=== PATIENT | female | born 1965 | race African-American/Black ===

== ENCOUNTER 2017-07-19 05:50 | Inpatient (IN) | payer MEDICARE, OTHER ==
[~2017-07-19] VITALS: Ht 165.1 cm; Wt 90.7 kg
[~2017-07-19 05:50] MED LIST: ALBUTEROL25 GM MC; GABAPENTIN100 MG PO; PROVENTIL2 MG PO; trazadone
[2017-07-19 08:00] VITALS: BP 146/102
[2017-07-19] MEDS ORDERED: Albuterol/Ipratropium 3ml neb HHN PRN (10:30)
[2017-07-19] MEDS: Norco 5mg/325mg tab ORAL PRN ×3 (11:33→23:44)
--- NOTE | 2017-07-19 11:59 | History & Physical ---
History and Physical History & Physicial Dictated for Int Med-Dr Munguia no. [id number]. MOLINA MARIE Jul 19, 2017 11:59
[2017-07-19 12:00] VITALS: BP 145/70
[2017-07-19] MEDS: Solu-MEDROL 40mg Inj IVP SCH ×2 (12:00→21:32)
[2017-07-19] MEDS: Heparin 5000 units/ml inj SUBQ SCH ×2 (14:00→21:32)
[2017-07-19] MEDS: Triamterene/Hctz 37.5/25 cap ORAL SCH (14:50)
[2017-07-19] MEDS ORDERED: Albuterol/Ipratropium 3ml neb HHN SCH (15:00)
--- NOTE | 2017-07-19 16:45 | Consultation ---
History of Present Illness General Date patient seen: Jul 19, 2017 Chief Complaint: dysnea Referring physician: Dr. Munguia Reason for Consultation: dyspnea Present Illness HPI 51 year old male with hx of smoking, COPD was taken to [facility] with CC of increased shortness of breath, cough. Pt is transferred to [facility] for further management. Allergies: Coded Allergies: No Known Allergies (Unverified , 07/05/12) Medication History Scheduled Gabapentin* (Gabapentin*), 0 PO TID, (Reported) Miscellaneous Medications Albuterol (Albuterol), MC, (Reported) Albuterol Sulf (Albuterol Sulfate), 2 MG PO, (Reported) [trazadone], (Reported) Patient History Healthcare decision maker Resuscitation status Advanced Directive on File Past Medical/Surgical History Past Medical/Surgical History: (1) Nicotine addiction (2) Depression Review of Systems Respiratory: Reports: cough, shortness of breath All Other Systems: negative except mentioned in HPI Physical Exam Lines, tubes and drains: peripheral, central line HEENT: normocephalic, atraumatic Neck: non-tender, normal alignment Respiratory/Chest: chest wall non-tender, rhonchi - left, rhonchi - right Cardiovascular/Chest: normal peripheral pulses, normal rate Abdomen: non tender, soft Genitourinary/Rectal: normal genital exam Extremities: normal range of motion Last 24 Hour Vital Signs Date Time Temp Pulse Resp B/P (MAP) Pulse Ox O2 Delivery O2 Flow Rate FiO2 07/19/17 12:00 97.9 100 20 145/70 99 Room Air 07/19/17 11:44 95 20 99 Nasal Cannula 2.0 28 07/19/17 11:41 94 18 98 Nasal Cannula 2.0 28 07/19/17 11:41 32 07/19/17 08:00 98.1 106 20 146/102 95 Room Air Height (Feet): 5 Height (Inches): 5.00 Weight (Pounds): 200 Medications Current Medications Medications (Trade) Dose Ordered Sig/Reddy Route PRN Reason Start Time Stop Time Status Last Admin Dose Admin Acetaminophen (Tylenol) 650 mg Q6H PRN ORAL Mild Pain/Temp > 100.5 07/19/17 10:30 08/18/17 10:29 Acetaminophen/ Hydrocodone Bitart ([place] 5/325) 1 tab Q4H PRN ORAL Severe Pain (Pain Scale 7-10) 07/19/17 10:30 07/26/17 10:29 07/19/17 11:33 Albuterol/ Ipratropium (DuoNeb 0.5-3(2.5)mg/3ml) 3 ml Q4H PRN HHN Shortness of Breath 07/19/17 10:30 07/24/17 10:29 Albuterol/ Ipratropium (DuoNeb 0.5-3(2.5)mg/3ml) 3 ml Q4HRT HHN 07/19/17 13:00 07/24/17 12:59 Gabapentin (Neurontin) 800 mg THREE TIMES A DAY ORAL 07/19/17 12:00 08/18/17 11:59 07/19/17 12:46 Heparin Sodium (Porcine) (Heparin 5000 units/ml) 5,000 units EVERY 8 HOURS SUBQ 07/19/17 14:00 08/18/17 13:59 Levofloxacin 100 ml @ 100 mls/hr Q24H IVPB 07/19/17 12:00 07/26/17 11:59 07/19/17 14:50 Methylprednisolone Sodium Succinate (Solu-MEDROL) 80 mg EVERY 8 HOURS IVP 07/19/17 12:00 08/18/17 11:59 07/19/17 12:00 Ondansetron HCl (Zofran) 4 mg Q4H PRN IVP Nausea & Vomiting 07/19/17 10:30 08/18/17 10:29 Triamterene/HCTZ (Dyazide) 1 cap DAILY ORAL 07/19/17 12:00 08/18/17 11:59 07/19/17 14:50 Assessment/Plan Problem List: (1) COPD with acute exacerbation ICD Codes: J44.1 - Chronic obstructive pulmonary disease with (acute) exacerbation SNOMED: 032523340 (2) Purulent bronchitis ICD Codes: J41.1 - Mucopurulent chronic bronchitis SNOMED: 63067131 (3) Depression ICD Codes: F32.9 - Major depressive disorder, single episode, unspecified SNOMED: 11403587 (4) Nicotine addiction ICD Codes: F17.200 - Nicotine dependence, unspecified, uncomplicated SNOMED: 91977742 Assessment/Plan respiratory treatment IV steroids antitussives respiratory treatment titrate fio2 to sat of 92% dvt prophylaxis pt doens't want Nicotine patch ADEOLA DODSON Jul 19, 2017 16:45
[2017-07-19] MEDS: Albuterol/Ipratropium 3ml neb HHN SCH (17:09)
[2017-07-19] MEDS: Levalbuterol Inh UD 1.25mg/0.5ml HHN SCH (19:00)
[2017-07-19 20:00] VITALS: BP 159/93
[2017-07-19] MEDS: Theophylline ER 100mg ORAL SCH (20:19)
[2017-07-19 20:44] VITALS: BP 149/88
--- NOTE | 2017-07-19 21:30 | History and Physical Report ---
DATE OF ADMISSION: 07/19/2017 Chief Complaint: The patient is a 51-year-old, female, presents with chief complaint of shortness of breath, cough, and fever for 3 days. History Of Present Illness: The patient states she went to a birthday green party 3 days previously. The patient states she was exposed to several children who were not feeling well. The patient began to experience fevers and chills 3 days ago. The patient now has a cough, productive of brownish sputum. The patient also has extreme shortness of breath. The patient has fevers up to 100 degrees Fahrenheit. The patient initially presented to [facility] emergency room. The patient is transferred to [facility] for insurance purposes. The patient is admitted with asthma exacerbation. PAST MEDICAL HISTORY: Significant for asthma. PAST SURGICAL HISTORY: Significant for section x2. CURRENT MEDICATIONS: 1. Gabapentin 400 mg 1 tablet p.o. 3 times daily. 2. Risperdal 1 mg 1 tablet p.o. at bedtime. 3. Albuterol and Atrovent nebulizer q.6 h. p.r.n. 4. Advair 250/50 mcg 1 puff p.o. twice daily. 5. Trazodone 50 mg 1 tablet p.o. at bedtime. ALLERGIES: To eggs. Social History: The patient is single and is unemployed. The patient admits to tobacco use of 1 pack per day. The patient admits to alcohol use on weekends. The patient denies other drugs of abuse. Review Of Systems: Constitutional: The patient denies weight loss or weight gain. The patient complains of fevers and chills as above. HEENT: The patient denies ear or throat pain. The patient denies headache. Cardiovascular: The patient denies palpitations or chest pain. Chest: The patient complains of wheezes as above. The patient complains of cough as above. Abdominal: The patient denies nausea, vomiting, diarrhea, or constipation. Genitourinary: The patient denies dysuria or increased frequency of urination. Neuromuscular: The patient denies seizures or generalized weakness. PHYSICAL EXAMINATION: Vital Signs: Temperature 98.1, respirations 20, pulse 106, blood pressure 146/102, and pulse oximetry 95% on room air. General: The patient is well-developed, well-nourished, obese, female, in no apparent distress. HEENT: Eyes, pupils are equal and responsive to light and accommodation. Extraocular movements are intact. NECK: Supple without lymphadenopathy. Chest: Lungs have diffuse wheezes bilaterally throughout all lung crespo, otherwise, without crackles. Abdomen: Soft, nontender, and nondistended. Positive bowel sounds. No evidence of hepatosplenomegaly. Currently, no rebound or guarding noted. EXTREMITIES: Negative for clubbing, cyanosis, or edema. RECTAL: Refused. GENITAL: Refused. Neurologic: Cranial nerves II through XII are grossly intact without focal deficits. Motor strength is 5/5 bilaterally. Deep tendon reflexes are 2+ plantar. Laboratory And Diagnostic Data: Laboratory studies from [place], WBC 7.4, hemoglobin 13.3, hematocrit 37.5, and platelets 275,000. Glucose 101, sodium 133, potassium 3.2, chloride 100, CO2 21, BUN 9, and creatinine 0.2. Chest x-ray is pending. ASSESSMENT: This is a 51-year-old, female, 1. Fever. 2. Cough. 3. Probable asthma exacerbation. 4. Probable bronchitis. TREATMENT: 1. Fever/cough/asthma. A Pulmonary consultation has been obtained with Dr. Rufino Christina. The patient has been started empirically on intravenous Solu-Medrol. The patient has also been started on intravenous Levaquin. Albuterol and Atrovent will be nebulized q.4 h. while awake. 2. Bronchitis. The patient has been started empirically on Levaquin as above. Alpesh Roque M.D. DR: DOMINICK JOB#: [id number] CC:
[2017-07-19] MEDS: Promethazine/Codeine 5ml UD ORAL PRN (23:44)
[2017-07-20] VITALS: BP 155/89
[2017-07-20 04:00] VITALS: BP 150/85
[2017-07-20] MEDS: Heparin 5000 units/ml inj SUBQ SCH (05:46)
[2017-07-20] MEDS: Solu-MEDROL 40mg Inj IVP SCH ×2 (05:46→13:22)
[2017-07-20] MEDS: Levalbuterol Inh UD 1.25mg/0.5ml HHN SCH ×2 (07:00→13:00)
[2017-07-20 07:22] LABS: BASOPHILS % (AUTO) 0.6 % (0.0-2.0); LYMPHOCYTES % (AUTO) 10.8 % (20.0-45.0); MEAN CORPUSCULAR HEMOGLOBIN 32.6 PG (27.0-31.0); MEAN CORPUSCULAR HGB CONC 33.3 G/DL (32.0-36.0); MEAN CORPUSCULAR VOLUME 98 FL (80-99); MEAN PLATELET VOLUME 5.9 FL (6.5-10.1); MONOCYTES % (AUTO) 4.1 % (1.0-10.0); NEUTROPHILS % (AUTO) 84.5 % (45.0-75.0); PLATELET COUNT 318 K/UL (150-450); RED BLOOD COUNT 4.21 M/UL (4.20-5.40); RED CELL DISTRIBUTION WIDTH 13.8 % (11.6-14.8); WHITE BLOOD COUNT 11.9 K/UL (4.8-10.8)
[2017-07-20 07:34] LABS: ANION GAP 14 (5-15); CALCIUM 9.8 mg/dL (8.6-10.2); CARBON DIOXIDE 27 mEQ/L (20-30); CHLORIDE 99 mEQ/L (98-107); CREATININE 0.8 mg/dL (0.5-0.9); GLOMERULAR FILTRATION RATE > 60 mL/min (>60); HEMOLYSIS 1; MAGNESIUM 2.1 mg/dL (1.7-2.5); PHOSPHORUS 3.4 mg/dL (2.5-4.8); POTASSIUM 4.1 mEQ/L (3.4-4.9); SODIUM 140 mEQ/L (135-145)
[2017-07-20] MEDS: Theophylline ER 100mg ORAL SCH (08:59)
[2017-07-20] MEDS: Triamterene/Hctz 37.5/25 cap ORAL SCH (08:59)
--- NOTE | 2017-07-20 11:49 | Diagnostic Imaging Report ---
Indication: Cough Technique: 2 views of the chest Comparison: 07/05/2012 Findings: Lungs and pleural space are clear. Heart size is normal. There is a calcified granuloma again demonstrated in the left upper lobe Impression: Evidence of old granulomatous disease No acute process
[2017-07-20 12:00] VITALS: BP 131/64
[2017-07-20] MEDS: Norco 5mg/325mg tab ORAL PRN (12:41)
[2017-07-20] MEDS: Promethazine/Codeine 5ml UD ORAL PRN (12:41)
--- NOTE | 2017-07-20 15:05 | Pulmonology Progress Note ---
Assessment/Plan Problems: (1) COPD with acute exacerbation (2) Purulent bronchitis (3) Depression (4) Nicotine addiction Assessment/Plan improving continue current regiment check sputum antitussives Subjective ROS Limited/Unobtainable: No Constitutional: Reports: no symptoms HEENT: Repors: no symptoms Respiratory: Reports: no symptoms Allergies: Coded Allergies: EGG (Verified Allergy, Unknown, 07/20/17) COPIED FROM UNCODED SECTION Objective Last 24 Hour Vital Signs Date Time Temp Pulse Resp B/P (MAP) Pulse Ox O2 Delivery O2 Flow Rate FiO2 07/20/17 13:58 Room Air 07/20/17 13:58 Room Air 07/20/17 12:00 97.7 110 18 131/64 97 Venturi Mask 11.0 07/20/17 07:42 90 18 98 Room Air 07/20/17 07:42 90 18 Room Air 07/20/17 04:00 97.5 83 18 150/85 100 Room Air 07/20/17 00:00 97.9 96 21 155/89 97 Room Air 07/19/17 20:44 149/88 07/19/17 20:13 97 20 97 Room Air 07/19/17 20:00 97 20 Room Air 07/19/17 20:00 97.9 91 20 159/93 96 Room Air 07/19/17 17:10 32 07/19/17 17:10 86 16 99 Nasal Cannula 2.0 28 07/19/17 17:10 88 20 99 Nasal Cannula 2.0 28 General Appearance: WD/WN HEENT: normocephalic, atraumatic Respiratory/Chest: chest wall non-tender, lungs clear Cardiovascular: normal peripheral pulses, normal rate Abdomen: soft, non tender, no organomegaly Genitourinary: normal external genitalia Extremities: no cyanosis Skin: no lesions Microbiology Date/Time Source Procedure Growth Status 07/19/17 22:30 Sputum Gram Stain - Final Resulted 07/19/17 22:30 Sputum Sputum Culture Pending Resulted 07/19/17 21:30 Nasopharynx Influenza Types A,B Antigen (VAZQUEZ) - Final Complete Laboratory Tests 07/20/17 05:40: White Blood Count 11.9H, Red Blood Count 4.21, Hemoglobin 13.7, Hematocrit 41.2 , Mean Corpuscular Volume 98, Mean Corpuscular Hemoglobin 32.6H, Mean Corpuscular Hemoglobin Concent 33.3, Red Cell Distribution Width 13.8, Platelet Count 318, Mean Platelet Volume 5.9L, Neutrophils (%) (Auto) 84.5H, Lymphocytes (%) (Auto) 10.8L, Monocytes (%) (Auto) 4.1, Eosinophils (%) (Auto) 0.0, Basophils (%) (Auto) 0.6, Sodium Level 140, Potassium Level 4.1, Chloride Level 99, Carbon Dioxide Level 27, Anion Gap 14, Blood Urea Nitrogen 14, Creatinine 0.8, Estimat Glomerular Filtration Rate > 60, Glucose Level 152H, Calcium Level 9.8, Phosphorus Level 3.4, Magnesium Level 2.1 Current Medications Medications (Trade) Dose Ordered Sig/Reddy Route PRN Reason Start Time Stop Time Status Last Admin Dose Admin Acetaminophen (Tylenol) 650 mg Q6H PRN ORAL Mild Pain/Temp > 100.5 07/19/17 10:30 08/18/17 10:29 07/19/17 20:20 Acetaminophen/ Hydrocodone Bitart ([place] 5/325) 1 tab Q4H PRN ORAL Severe Pain (Pain Scale 7-10) 07/19/17 10:30 07/26/17 10:29 07/20/17 12:41 Albuterol/ Ipratropium (DuoNeb 0.5-3(2.5)mg/3ml) 3 ml Q4H PRN HHN Shortness of Breath 07/19/17 10:30 07/24/17 10:29 Gabapentin (Neurontin) 800 mg THREE TIMES A DAY ORAL 07/19/17 12:00 08/18/17 11:59 07/20/17 12:40 Heparin Sodium (Porcine) (Heparin 5000 units/ml) 5,000 units EVERY 8 HOURS SUBQ 07/19/17 14:00 08/18/17 13:59 Levalbuterol HCl (Xopenex) 1.25 mg TIDRT HHN 07/19/17 19:00 07/24/17 18:59 Levofloxacin 100 ml @ 100 mls/hr Q24H IVPB 07/19/17 12:00 07/26/17 11:59 07/20/17 13:21 Methylprednisolone Sodium Succinate (Solu-MEDROL) 80 mg EVERY 8 HOURS IVP 07/19/17 12:00 08/18/17 11:59 07/20/17 13:22 Ondansetron HCl (Zofran) 4 mg Q4H PRN IVP Nausea & Vomiting 07/19/17 10:30 08/18/17 10:29 Promethazine HCl/ Codeine (Phenergan with Codeine) 5 ml Q4H PRN ORAL For Cough 07/19/17 17:30 08/18/17 17:29 07/20/17 12:41 Theophylline (Chalo-Dur) 100 mg EVERY 12 HOURS ORAL 07/19/17 21:00 08/18/17 20:59 07/20/17 08:59 Triamterene/HCTZ (Dyazide) 1 cap DAILY ORAL 07/19/17 12:00 08/18/17 11:59 07/20/17 08:59 ADEOLA DODSON Jul 20, 2017 15:05
--- NOTE | 2017-07-20 15:32 | Internal Med Progress Note ---
Subjective Date of Service: Jul 20, 2017 Physician Name MyaMolina Attending Physician Mookie Munguia MD Current Medications Medications (Trade) Dose Ordered Sig/Reddy Route PRN Reason Start Time Stop Time Status Last Admin Dose Admin Acetaminophen (Tylenol) 650 mg Q6H PRN ORAL Mild Pain/Temp > 100.5 07/19/17 10:30 08/18/17 10:29 07/19/17 20:20 Acetaminophen/ Hydrocodone Bitart ([place] 5/325) 1 tab Q4H PRN ORAL Severe Pain (Pain Scale 7-10) 07/19/17 10:30 07/26/17 10:29 07/20/17 12:41 Albuterol/ Ipratropium (DuoNeb 0.5-3(2.5)mg/3ml) 3 ml Q4H PRN HHN Shortness of Breath 07/19/17 10:30 07/24/17 10:29 Gabapentin (Neurontin) 800 mg THREE TIMES A DAY ORAL 07/19/17 12:00 08/18/17 11:59 07/20/17 12:40 Heparin Sodium (Porcine) (Heparin 5000 units/ml) 5,000 units EVERY 8 HOURS SUBQ 07/19/17 14:00 08/18/17 13:59 Levalbuterol HCl (Xopenex) 1.25 mg TIDRT HHN 07/19/17 19:00 07/24/17 18:59 Levofloxacin 100 ml @ 100 mls/hr Q24H IVPB 07/19/17 12:00 07/26/17 11:59 07/20/17 13:21 Methylprednisolone Sodium Succinate (Solu-MEDROL) 80 mg EVERY 8 HOURS IVP 07/19/17 12:00 08/18/17 11:59 07/20/17 13:22 Ondansetron HCl (Zofran) 4 mg Q4H PRN IVP Nausea & Vomiting 07/19/17 10:30 08/18/17 10:29 Promethazine HCl/ Codeine (Phenergan with Codeine) 5 ml Q4H PRN ORAL For Cough 07/19/17 17:30 08/18/17 17:29 07/20/17 12:41 Theophylline (Chalo-Dur) 100 mg EVERY 12 HOURS ORAL 07/19/17 21:00 08/18/17 20:59 07/20/17 08:59 Triamterene/HCTZ (Dyazide) 1 cap DAILY ORAL 07/19/17 12:00 08/18/17 11:59 07/20/17 08:59 Allergies: Coded Allergies: EGG (Verified Allergy, Unknown, 07/20/17) COPIED FROM UNCODED SECTION ROS Limited/Unobtainable: No Constitutional: Reports: fever HEENT: Reports: no symptoms Cardiovascular: Reports: no symptoms Respiratory: Reports: cough Gastrointestinal/Abdominal: Reports: no symptoms Genitourinary: Reports: no symptoms Neurologic/Psychiatric: Reports: no symptoms Subjective 51 YO F admitted with fever and cough. Now Asthma exacerbation with bronchitis. Cover for Int Med-Dr Munguia. Objective Last Vital Signs Date Time Temp Pulse Resp B/P (MAP) Pulse Ox O2 Delivery O2 Flow Rate FiO2 07/20/17 13:58 Room Air 07/20/17 13:40 97.7 07/20/17 12:00 110 18 131/64 97 11.0 07/19/17 17:10 32 General Appearance: WD/WN, no apparent distress, alert EENT: PERRL/EOMI, normal ENT inspection Neck: non-tender, normal alignment, supple, normal inspection Cardiovascular: normal peripheral pulses, normal rate, regular rhythm, no gallop/murmur, no JVD Respiratory/Chest: respiratory distress, crackles/rales, rhonchi - bilaterally , expiratory wheezing Abdomen: normal bowel sounds, non tender, soft, no organomegaly, no mass Extremities: normal range of motion 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 Skin: normal pigmentation, warm/dry Laboratory Tests Test 07/20/17 05:40 White Blood Count 11.9 K/UL (4.8-10.8) H Red Blood Count 4.21 M/UL (4.20-5.40) Hemoglobin 13.7 G/DL (12.0-16.0) Hematocrit 41.2 % (37.0-47.0) Mean Corpuscular Volume 98 FL (80-99) Mean Corpuscular Hemoglobin 32.6 PG (27.0-31.0) H Mean Corpuscular Hemoglobin Concent 33.3 G/DL (32.0-36.0) Red Cell Distribution Width 13.8 % (11.6-14.8) Platelet Count 318 K/UL (150-450) Mean Platelet Volume 5.9 FL (6.5-10.1) L Neutrophils (%) (Auto) 84.5 % (45.0-75.0) H Lymphocytes (%) (Auto) 10.8 % (20.0-45.0) L Monocytes (%) (Auto) 4.1 % (1.0-10.0) Eosinophils (%) (Auto) 0.0 % (0.0-3.0) Basophils (%) (Auto) 0.6 % (0.0-2.0) Sodium Level 140 mEQ/L (135-145) Potassium Level 4.1 mEQ/L (3.4-4.9) Chloride Level 99 mEQ/L (98-107) Carbon Dioxide Level 27 mEQ/L (20-30) Anion Gap 14 (5-15) Blood Urea Nitrogen 14 mg/dL (7-23) Creatinine 0.8 mg/dL (0.5-0.9) Estimat Glomerular Filtration Rate > 60 mL/min (>60) Glucose Level 152 mg/dL (74-106) H Calcium Level 9.8 mg/dL (8.6-10.2) Phosphorus Level 3.4 mg/dL (2.5-4.8) Magnesium Level 2.1 mg/dL (1.7-2.5) Microbiology Date/Time Source Procedure Growth Status 07/19/17 22:30 Sputum Gram Stain - Final Resulted 07/19/17 22:30 Sputum Sputum Culture Pending Resulted 07/19/17 21:30 Nasopharynx Influenza Types A,B Antigen (VAZQUEZ) - Final Complete Assessment/Plan Problem List: (1) Fever (2) Purulent bronchitis (3) COPD with acute exacerbation Assessment & Plan: Cont IV solumecdrol and albuterol nebs. (4) Depression (5) Cough Assessment & Plan: Influenza neg. Cont levaquin. (6) HTN (hypertension) Assessment & Plan: Cont dyazide. Status: progressing MOLINA MARIE Jul 20, 2017 15:32
[2017-07-20] MEDS ORDERED: DYAZIDE1 CAP ORAL (15:45)
[2017-07-20 16:00] VITALS: BP 134/88
--- NOTE | 2017-07-21 09:16 | Discharge Summary ---
Discharge Summary Hospital Course Date of Admission Jul 19, 2017 at 08:52 Date of Discharge Jul 20, 2017 at 16:56 Admitting Diagnosis HPI Lalo Sainz is a 51 year old female who was admitted on Jul 19, 2017 at 08:52 for Asthma Exacerbation Hospital Course [id number] Discharge Discharge Disposition Patient was discharged to Home (01) Discharge Diagnoses: Lisbeth Drummond NP Jul 21, 2017 09:16
--- NOTE | 2017-07-22 05:30 | Discharge Summary 2 SIG ---
DATE OF ADMISSION: 07/19/2017 DATE OF DISCHARGE: 07/20/2017 MANAGER OB: Rufino Christina M.D. Brief Hospital Course: The patient is a 51-year-old female, who presented with chief complaint of shortness of breath, cough, and fever for three days. The patient went to a birthday constitution party three days previously and was exposed to several children, who were not feeling well. She began to experience fever and chills three days prior to admission and had cough productive with brownish sputum. She had extreme shortness of breath and had fever up to 100 degrees. She initially presented to [facility] and was transferred to [place] for insurance purposes. The patient was admitted for asthma exacerbation. Laboratory studies from [place] includes WBC 7.4, hemoglobin 13, and hematocrit 37. Potassium 3.[address] Christina was consulted. The patient was started empirically on IV Solu-Medrol and IV Levaquin. She was given albuterol and Atrovent nebulization. Influenza screen was negative for influenza A and B. Sputum culture still pending. She had a chest x-ray done that showed no evidence of granulomatous disease with no acute process. Due to rapid improvement in the patient's symptom with negative work, the patient was eventually discharged home. Advised to continue antibiotic treatment with Levaquin 500 mg daily for 10 days and continue with Medrol Dosepak and triamterene. Prescription was provided to the patient. FINAL DIAGNOSES: 1. Chronic obstructive pulmonary disease with acute exacerbation. 2. Acute purulent bronchitis. 3. Hypertension. 4. Depression. 5. Nicotine addiction. DISPOSITION: The patient was discharged home. DISCHARGE MEDICATIONS: Prescription was provided to the patient. FOLLOWUP: Follow up with PMD in a week. Alpesh Roque M.D. I have been assigned to dictate discharge summary on this account and I was not involved in the patient's management. Lisbeth Drummond N.P. DR: Duncan JOB#: [id number] CC: [place]
[2017-11-01] MEDS ORDERED: ADVAIR 250/501 PUFFS INH (13:01)
[2017-11-01] MEDS ORDERED: MEDROL4 MG ORAL (13:01)
[2017-11-01] MEDS ORDERED: PROAIR HFA8.5 GM INH (13:01)
[2017-11-01] MEDS ORDERED: IPRAT-ALBUT 0.5-3 ML IH (13:01)
[2017-11-01] MEDS ORDERED: LEVAQUIN500 MG ORAL (13:01)
[2017-11-01] MEDS ORDERED: AMLODIPINE BESYL5 MG ORAL (13:02)
== END 2017-07-20 16:56 | disposition home or self-care (01) | DRG 192 ==
LOC: 4E 08:52
DX: J44.1 Chronic obstructive pulmonary disease with (acute) exacerbation (principal); F32.9 Major depressive disorder, single episode, unspecified; F17.210 Nicotine dependence, cigarettes, uncomplicated
CPT/HCPCS: 36415; 71020; 80048; 82962; 83735; 84100; 85025; 86710; 87070; 87205; 94640; 94664; J7620

== ENCOUNTER 2017-10-27 16:25 | Inpatient (IN) | payer MEDICARE, OTHER ==
[~2017-10-27] VITALS: Ht 167.6 cm; Wt 81.6 kg
[~2017-10-27 16:25] MED LIST changes: +DYAZIDE1 CAP ORAL
[2017-10-27 16:43] VITALS: BP 120/72
[2017-10-27] MEDS ORDERED: Solu-MEDROL 125mg Inj IVP ONE (16:45)
[2017-10-27] MEDS: Albuterol ud Inhalation HHN SCH ×4 (16:48→20:45)
[2017-10-27] MEDS: Ipratropium 0.02% Inh Soln 2.5ml UD HHN SCH ×3 (16:49→17:26)
[2017-10-27 17:33] LABS: BASOPHILS % (AUTO) 1.3 % (0.0-2.0); EOSINOPHILS % (AUTO) 1.8 % (0.0-3.0); HEMATOCRIT 44.4 % (37.0-47.0); HEMOGLOBIN 13.9 G/DL (12.0-16.0); LYMPHOCYTES % (AUTO) 24.5 % (20.0-45.0); MEAN CORPUSCULAR VOLUME 97 FL (80-99); MONOCYTES % (AUTO) 2.9 % (1.0-10.0); NEUTROPHILS % (AUTO) 69.6 % (45.0-75.0); PLATELET COUNT 313 K/UL (150-450); RED BLOOD COUNT 4.57 M/UL (4.20-5.40); RED CELL DISTRIBUTION WIDTH 12.5 % (11.6-14.8); WHITE BLOOD COUNT 5.7 K/UL (4.8-10.8)
[2017-10-27 17:37] LABS: ANION GAP 10 mmol/L (5-15); BLOOD UREA NITROGEN 12 mg/dL (7-18); CALCIUM 8.9 MG/DL (8.5-10.1); CARBON DIOXIDE 27 MMOL/L (21-32); CHLORIDE 104 MMOL/L (98-107); CREATININE 0.8 MG/DL (0.55-1.30); POTASSIUM 3.8 MMOL/L (3.5-5.1); SODIUM 141 MMOL/L (136-145)
[2017-10-27 17:49] LABS: ALANINE AMINOTRANSFERASE 23 U/L (12-78); ALBUMIN 4.1 G/DL (3.4-5.0); ALBUMIN/GLOBULIN RATIO 1.1 (1.0-2.7); ALKALINE PHOSPHATASE 66 U/L (46-116); ASPARTATE AMINO TRANSFERASE 17 U/L (15-37); BILIRUBIN,TOTAL 0.4 MG/DL (0.2-1.0); CKMB 1.8 NG/ML (0.0-3.6); CREATINE KINASE 364 U/L (26-308)
[2017-10-27] MEDS ORDERED: Levofloxacin 500mg tab ORAL ONE (18:45)
[2017-10-27] MEDS ORDERED: Oseltamivir 75mg cap ORAL ONE (18:45)
[2017-10-27 18:50] LABS: APPEARANCE,URINE CLEAR; BILIRUBIN, URINE NEGATIVE (NEGATIVE); GLUCOSE, URINE (UA) NEGATIVE (NEGATIVE); KETONES,URINE NEGATIVE (NEGATIVE); LEUKOCYTE ESTERASE ,URINE 1+ (NEGATIVE); NITRITE,URINE NEGATIVE (NEGATIVE); PH,URINE 6 (4.5-8.0); PROTEIN,URINE NEGATIVE (NEGATIVE); UROBILINOGEN,URINE NORMAL MG/DL (0.0-1.0)
[2017-10-27 18:51] LABS: COLOR,URINE YELLOW
[2017-10-27] MEDS ORDERED: Ketorolac 30mg Inj IV PRN (19:00)
[2017-10-27] MEDS ORDERED: Promethazine/Codeine 5ml UD ORAL PRN (19:00)
[2017-10-27] MEDS ORDERED: Albuterol/Ipratropium 3ml neb HHN PRN (19:00)
[2017-10-27] MEDS ORDERED: Nitroglycerin Subl 0.4mg tab SL PRN (19:00)
[2017-10-27 19:30] VITALS: BP 122/74
[2017-10-27] MEDS ORDERED: Norco 5mg/325mg tab ORAL ONE (20:45)
[2017-10-27 21:45] VITALS: BP 130/87
[2017-10-27 22:05] VITALS: BP_SYST 130; BP_SYST 148; BP_DIAS 87; BP_DIAS 89
[2017-10-27] MEDS: Piperacillin/Tazobactam 3.375 GM in NS 110 ML IVPB SCH (22:26)
[2017-10-27] MEDS: Heparin 5000 units/ml inj SUBQ SCH (22:32)
--- NOTE | 2017-10-27 23:46 | Emergency Room Report ---
History of Present Illness General Chief Complaint: Upper Respiratory Illness Source: Patient Present Illness HPI Patient presents to the emergency department today complaining of shortness of breath cough and congestion. Patient states that she has a history asthma and COPD. She thinks that she might have caught the flu. Her shortness of breath is progressively worse that she cannot ambulate. Symptoms noted to be severe she arrived in triage patient complains of fever as well as cough and congestion patient denies any chest pain. No other modifying factors. No other associated signs and symptoms. No other complaints were noted. Allergies: Coded Allergies: EGG (Verified Allergy, Unknown, 07/20/17) COPIED FROM UNCODED SECTION Patient History Past Medical History: HTN, CAD Past Surgical History: none Pertinent Family History: none Social History: Denies: smoking, alcohol use, drug use Now: No Reviewed Nursing Documentation: PMH: Agreed, PSxH: Agreed Nursing Documentation-PMH Hx Cardiac Problems: Yes Hx Hypertension: No Hx Pacemaker: No Hx Asthma: No Hx COPD: No Hx Cancer: No Hx Gastrointestinal Problems: No Hx Neurological Problems: No Review of Systems All Other Systems: negative except mentioned in HPI Physical Exam Vital Signs Date Time Temp Pulse Resp B/P (MAP) Pulse Ox O2 Delivery O2 Flow Rate FiO2 10/27/17 16:30 98.4 107 20 127/83 98 Room Air Sp02 EP Interpretation: reviewed, normal General Appearance: normal inspection, well appearing, no apparent distress, alert Head: atraumatic Eyes: bilateral eye normal inspection ENT: normal ENT inspection, hearing grossly normal, normal voice Neck: normal inspection, full range of motion, supple, no bony tend Respiratory: respiratory distress, decreased breath sounds, accessory muscle use, wheezing, expiration, inspiration Cardiovascular #1: regular rate, rhythm, no edema Gastrointestinal: normal inspection, normal bowel sounds, non tender, soft, no guarding, no hernia Genitourinary: no CVA tenderness Musculoskeletal: normal inspection, back normal, normal range of motion Neurologic: normal inspection, alert, responsive, speech normal Psychiatric: depressed affect, anxious Skin: normal inspection, normal color, no rash Procedures Critical Care Time Critical Care Time Patient had a critical medical condition which untreated could potentially result in life or limb threatening injury. Total critical care time excluding procedures was approximately 45 minutes. Medical Decision Making Diagnostic Impression: Primary Impression: Asthma Additional Impressions: COPD with acute exacerbation Fever ER Course Patient presents emergency department today complaining of shortness of breath. Differential diagnoses include acute pneumonia, CHF, acute coronary syndrome, pneumothorax, asthma, COPD flare, just to name a few.Given the severity of the patient's presentation I felt this is a highly complex patient. This patient required extensive workup. Patient's laboratory workup was not impressive chest x-ray was normal. However patient was severely short of breath require emergent treatment. Patient improved after respiratory treatment. Case was discussed with Dr. Christina. Patient will be admitted to telemetry for further treatment. Labs Test 10/27/17 17:00 10/27/17 18:42 White Blood Count 5.7 K/UL (4.8-10.8) Red Blood Count 4.57 M/UL (4.20-5.40) Hemoglobin 13.9 G/DL (12.0-16.0) Hematocrit 44.4 % (37.0-47.0) Mean Corpuscular Volume 97 FL (80-99) Mean Corpuscular Hemoglobin 30.3 PG (27.0-31.0) Mean Corpuscular Hemoglobin Concent 31.3 G/DL (32.0-36.0) Red Cell Distribution Width 12.5 % (11.6-14.8) Platelet Count 313 K/UL (150-450) Mean Platelet Volume 5.3 FL (6.5-10.1) Neutrophils (%) (Auto) 69.6 % (45.0-75.0) Lymphocytes (%) (Auto) 24.5 % (20.0-45.0) Monocytes (%) (Auto) 2.9 % (1.0-10.0) Eosinophils (%) (Auto) 1.8 % (0.0-3.0) Basophils (%) (Auto) 1.3 % (0.0-2.0) Sodium Level 141 MMOL/L (136-145) Potassium Level 3.8 MMOL/L (3.5-5.1) Chloride Level 104 MMOL/L (98-107) Carbon Dioxide Level 27 MMOL/L (21-32) Anion Gap 10 mmol/L (5-15) Blood Urea Nitrogen 12 mg/dL (7-18) Creatinine 0.8 MG/DL (0.55-1.30) Estimat Glomerular Filtration Rate > 60 mL/min (>60) Glucose Level 123 MG/DL (74-106) Calcium Level 8.9 MG/DL (8.5-10.1) Total Bilirubin 0.4 MG/DL (0.2-1.0) Aspartate Amino Transf (AST/SGOT) 17 U/L (15-37) Alanine Aminotransferase (ALT/SGPT) 23 U/L (12-78) Alkaline Phosphatase 66 U/L (46-116) Total Creatine Kinase 364 U/L (26-308) Creatine Kinase MB 1.8 NG/ML (0.0-3.6) Creatine Kinase MB Relative Index 0.4 Troponin I 0.000 ng/mL (0.000-0.056) Pro-B-Type Natriuretic Peptide 41 pg/mL (0-125) Total Protein 8.0 G/DL (6.4-8.2) Albumin 4.1 G/DL (3.4-5.0) Globulin 3.9 g/dL Albumin/Globulin Ratio 1.1 (1.0-2.7) Lipase 104 U/L (73-393) Urine Color Yellow Urine Appearance Clear Urine pH 6 (4.5-8.0) Urine Specific [place] 1.015 (1.005-1.035) Urine Protein Negative (NEGATIVE) Urine Glucose (UA) Negative (NEGATIVE) Urine Ketones Negative (NEGATIVE) Urine Occult Blood Negative (NEGATIVE) Urine Nitrite Negative (NEGATIVE) Urine Bilirubin Negative (NEGATIVE) Urine Urobilinogen Normal MG/DL (0.0-1.0) Urine Leukocyte Esterase 1+ (NEGATIVE) Urine RBC 2-4 /HPF (0 - 2) Urine WBC 0-2 /HPF (0 - 2) Urine Squamous Epithelial Cells Few /LPF (NONE/OCC) Urine Bacteria Few /HPF (NONE) EKG Diagnostic Results Rate: normal Rhythm: NSR ST Segments: no acute changes Rhythm Strip Diag. Results EP Interpretation: yes Rate: 88 Rhythm: NSR, no PVC's, no ectopy Chest X-Ray Diagnostic Results Chest X-Ray Diagnostic Results : Chest X-Ray Ordered: Yes # of Views/Limited/Complete: 1 View Indication: Shortness of Breath EP Interpretation: Yes Interpretation: no consolidation, no effusion, no pneumothorax, no acute cardiopulmonary disease Impression: No acute disease Electronically Signed by: Electronically signed by Michael Shaikh MD Last Vital Signs Date Time Temp Pulse Resp B/P (MAP) Pulse Ox O2 Delivery O2 Flow Rate FiO2 10/27/17 18:00 95 19 100 Room Air 10/27/17 16:43 98.1 120/72 Status: improved Disposition: ADMITTED INPATIENT Condition: Serious Referrals: NOT CHOSEN IPA/,REFERRING (PCP) MICHAEL SHAIKH M.D. Oct 27, 2017 23:46
[2017-10-28] VITALS: BP 153/96
[2017-10-28] MEDS: Solu-MEDROL 40mg Inj IVP SCH ×3 (00:21→22:33)
[2017-10-28] MEDS: LORazepam Inj 2mg/ml 1ml IV PRN (02:59)
[2017-10-28 04:00] VITALS: BP 155/93
[2017-10-28] MEDS: Piperacillin/Tazobactam 3.375 GM in NS 110 ML IVPB SCH ×3 (05:34→22:32)
[2017-10-28] MEDS: Albuterol ud Inhalation HHN SCH ×2 (07:00→09:37)
[2017-10-28 08:00] VITALS: BP 154/111
[2017-10-28] MEDS: Theophylline ER 100mg ORAL SCH ×2 (08:34→20:28)
[2017-10-28] MEDS: Heparin 5000 units/ml inj SUBQ SCH ×2 (08:38→20:31)
[2017-10-28] MEDS ORDERED: Oseltamivir 75mg cap ORAL SCH (09:00)
[2017-10-28] MEDS: Morphine Sulfate 2mg/ml Inj IVP PRN (10:18)
--- NOTE | 2017-10-28 12:13 | Consultation ---
History of Present Illness General Date patient seen: Oct 28, 2017 Time patient seen: 11:00 Referring physician: dr Munguia Reason for Consultation: asthma exacerbation Present Illness HPI 52 y/old female with PMH of COPD, asthma, HTN, depression, smoker presented to ED c/o SOB, cough and congestion, SOB was getting progressively worse and she had difficulties with ambulation Cough dry, minimally productive with scant amount of white to yellow phlegm, no hemoptysis reported wheezing and chest tightness patient run out of her Albuterol and Ipratropium which she uses via nebulizing treatment when she get cough and congestion patient feels that she caught a cold but because she did not had HHN treatment at home, she was getting progressively worse reports chills at home denies chest pain, Workup in ED revealed stable VS, no fever, mild tachy-107 laboratory work unremarkable CXR revealed no acute cardiopulmonary pathology influenza screen test was negative patient was admitted for further management Allergies: Coded Allergies: No Known Allergies (Unverified , 10/28/17) Pt. stated she is not allergic to any medication / food Medication History Scheduled Gabapentin* (Gabapentin*), 600 PO TID, (Reported) Triamterene/Hctz (Triamterene-Hctz 37.5-25 mg Cp), 1 CAP ORAL DAILY Miscellaneous Medications Albuterol (Albuterol), MC, (Reported) Albuterol Sulf (Albuterol Sulfate), 2 MG PO, (Reported) [trazadone], (Reported) Patient History History Provided By: Patient Healthcare decision maker N Resuscitation status Advanced Directive on File Past Medical/Surgical History Past Medical/Surgical History: (1) Nicotine addiction (2) HTN (hypertension) (3) Asthma (4) COPD with acute exacerbation Review of Systems Constitutional: Reports: malaise, weakness Eye: Reports: no symptoms ENT: Reports: no symptoms Respiratory: Reports: see HPI Cardiovascular: Reports: no symptoms, other - Hx of HTN Gastrointestinal: Reports: no symptoms Musculoskeletal: Reports: no symptoms Skin: Reports: no symptoms Neurological: Reports: no symptoms Endocrine: Reports: no symptoms Hematologic/Lymphatic: Reports: no symptoms Physical Exam General Appearance: WD/WN, alert Lines, tubes and drains: peripheral HEENT: normocephalic, atraumatic, anicteric Respiratory/Chest: chest wall non-tender, expiratory wheezing - use of accessory muscles upon inspiration Cardiovascular/Chest: normal peripheral pulses, regular rhythm, no JVD, tachycardia Abdomen: normal bowel sounds, non tender, soft Extremities: normal range of motion, no calf tenderness Skin Exam: warm/dry Neurologic: no motor/sensory deficits, alert, oriented x 3, responsive, normal mood/affect Last 24 Hour Vital Signs Date Time Temp Pulse Resp B/P (MAP) Pulse Ox O2 Delivery O2 Flow Rate FiO2 10/28/17 11:26 98 20 Room Air 21 10/28/17 09:49 95 18 99 Room Air 21 10/28/17 09:38 94 20 97 Room Air 10/28/17 08:00 98.5 117 22 154/111 97 Room Air 10/28/17 07:16 Room Air 10/28/17 07:16 97 Room Air 10/28/17 04:00 98.3 112 20 155/93 93 Room Air 10/28/17 00:28 94 20 100 Room Air 10/28/17 00:26 96 22 Room Air 10/28/17 00:26 90 20 100 Room Air 10/28/17 00:00 99.2 103 20 153/96 97 Room Air 10/27/17 22:05 98.5 83 19 148/89 100 Room Air 10/27/17 21:50 98.4 94 17 130/87 100 Room Air 10/27/17 21:45 94 17 Room Air 10/27/17 21:45 98.4 94 17 130/87 100 Room Air 10/27/17 19:30 98.2 98 17 122/74 100 Room Air 10/27/17 18:00 95 19 100 Room Air 10/27/17 17:26 93 19 100 Room Air 10/27/17 17:25 93 19 100 Room Air 10/27/17 17:06 91 17 100 Room Air 10/27/17 17:06 91 18 100 Room Air 10/27/17 16:52 97 24 Room Air 10/27/17 16:50 97 24 96 Room Air 10/27/17 16:43 98.1 111 22 120/72 100 Room Air 10/27/17 16:43 111 24 Room Air 10/27/17 16:30 98.4 107 20 127/83 98 Room Air Intake and Output 10/27/17 10/28/17 19:00 07:00 Intake Total 480 ml Balance 480 ml Intake Oral 480 ml # Voids 3 Laboratory Tests Test 10/27/17 17:00 10/27/17 18:42 White Blood Count 5.7 K/UL (4.8-10.8) Red Blood Count 4.57 M/UL (4.20-5.40) Hemoglobin 13.9 G/DL (12.0-16.0) Hematocrit 44.4 % (37.0-47.0) Mean Corpuscular Volume 97 FL (80-99) Mean Corpuscular Hemoglobin 30.3 PG (27.0-31.0) Mean Corpuscular Hemoglobin Concent 31.3 G/DL (32.0-36.0) L Red Cell Distribution Width 12.5 % (11.6-14.8) Platelet Count 313 K/UL (150-450) Mean Platelet Volume 5.3 FL (6.5-10.1) L Neutrophils (%) (Auto) 69.6 % (45.0-75.0) Lymphocytes (%) (Auto) 24.5 % (20.0-45.0) Monocytes (%) (Auto) 2.9 % (1.0-10.0) Eosinophils (%) (Auto) 1.8 % (0.0-3.0) Basophils (%) (Auto) 1.3 % (0.0-2.0) Sodium Level 141 MMOL/L (136-145) Potassium Level 3.8 MMOL/L (3.5-5.1) Chloride Level 104 MMOL/L (98-107) Carbon Dioxide Level 27 MMOL/L (21-32) Anion Gap 10 mmol/L (5-15) Blood Urea Nitrogen 12 mg/dL (7-18) Creatinine 0.8 MG/DL (0.55-1.30) Estimat Glomerular Filtration Rate > 60 mL/min (>60) Glucose Level 123 MG/DL (74-106) H Calcium Level 8.9 MG/DL (8.5-10.1) Total Bilirubin 0.4 MG/DL (0.2-1.0) Aspartate Amino Transf (AST/SGOT) 17 U/L (15-37) Alanine Aminotransferase (ALT/SGPT) 23 U/L (12-78) Alkaline Phosphatase 66 U/L (46-116) Total Creatine Kinase 364 U/L (26-308) H Creatine Kinase MB 1.8 NG/ML (0.0-3.6) Creatine Kinase MB Relative Index 0.4 Troponin I 0.000 ng/mL (0.000-0.056) Pro-B-Type Natriuretic Peptide 41 pg/mL (0-125) Total Protein 8.0 G/DL (6.4-8.2) Albumin 4.1 G/DL (3.4-5.0) Globulin 3.9 g/dL Albumin/Globulin Ratio 1.1 (1.0-2.7) Lipase 104 U/L (73-393) Urine Color Yellow Urine Appearance Clear Urine pH 6 (4.5-8.0) Urine Specific [place] 1.015 (1.005-1.035) Urine Protein Negative (NEGATIVE) Urine Glucose (UA) Negative (NEGATIVE) Urine Ketones Negative (NEGATIVE) Urine Occult Blood Negative (NEGATIVE) Urine Nitrite Negative (NEGATIVE) Urine Bilirubin Negative (NEGATIVE) Urine Urobilinogen Normal MG/DL (0.0-1.0) Urine Leukocyte Esterase 1+ (NEGATIVE) H Urine RBC 2-4 /HPF (0 - 2) H Urine WBC 0-2 /HPF (0 - 2) Urine Squamous Epithelial Cells Few /LPF (NONE/OCC) Urine Bacteria Few /HPF (NONE) Microbiology Date/Time Source Procedure Growth Status 10/27/17 17:25 Nasal Nares Influenza Types A,B Antigen (VAZQUEZ) - Final Complete 10/27/17 17:00 Sputum Gram Stain - Final Resulted 10/27/17 17:00 Sputum Sputum Culture - Preliminary NORMAL UPPER RESPIRATORY ALAN AT 24 ... Resulted Height (Feet): 5 Height (Inches): 6.00 Weight (Pounds): 180 Medications Current Medications Medications (Trade) Dose Ordered Sig/Reddy Route PRN Reason Start Time Stop Time Status Last Admin Dose Admin Acetaminophen (Tylenol) 650 mg Q6H PRN ORAL Mild Pain/Temp > 100.5 10/28/17 08:00 11/27/17 07:59 10/28/17 08:35 Albuterol Sulfate (Proventil) 2.5 mg TIDRT HHN 10/27/17 20:45 11/01/17 20:44 10/28/17 09:37 Albuterol/ Ipratropium (Albuterol/ Ipratropium) 3 ml Q4H PRN HHN dyspnea 10/27/17 19:00 11/01/17 18:59 Dextrose (Dextrose 50%) STAT PRN IV Hypoglycemia 10/27/17 19:00 11/26/17 18:59 Gabapentin (Neurontin) 300 mg TID ORAL 10/28/17 09:00 11/27/17 08:59 10/28/17 08:38 Heparin Sodium (Porcine) (Heparin 5000 units/ml) 5,000 units EVERY 12 HOURS SUBQ 10/27/17 21:00 11/26/17 20:59 10/28/17 08:38 Ketorolac Tromethamine (Toradol 30mg) 30 mg Q8H PRN IV moderate pain 4-6 10/27/17 19:00 11/01/17 18:59 Lorazepam (Ativan 2mg/ml 1ml) 0.5 mg Q4H PRN IV For Anxiety 10/27/17 19:00 11/03/17 18:59 10/28/17 02:59 Methylprednisolone Sodium Succinate (Solu-MEDROL) 60 mg EVERY 6 HOURS IVP 10/28/17 00:00 11/27/17 00:00 10/28/17 05:34 Morphine Sulfate (Morphine Sulfate) 2 mg Q4H PRN IVP severe pain 7-10 10/27/17 19:00 11/03/17 18:59 10/28/17 10:18 Nitroglycerin (Ntg) 0.4 mg Q5M X 3 DOSES PRN SL Prn Chest Pain 10/27/17 19:00 11/26/17 18:59 Ondansetron HCl (Zofran) 4 mg Q6H PRN IVP Nausea & Vomiting 10/27/17 19:00 11/26/17 18:59 Oseltamivir Phosphate (Tamiflu) 75 mg TWICE A DAY ORAL 10/28/17 09:00 11/02/17 08:59 10/28/17 08:38 Piperacillin Sod/ Tazobactam Sod 3.375 gm/Sodium Chloride 110 ml @ 27.5 mls/hr EVERY 8 HOURS IVPB 10/27/17 22:00 11/03/17 21:59 10/28/17 05:34 Promethazine HCl/ Codeine (Phenergan with Codeine) 5 ml Q6H PRN ORAL cough 10/27/17 19:00 11/26/17 18:59 Temazepam (Restoril) 15 mg HSPRN PRN ORAL Insomnia 10/27/17 19:00 11/03/17 18:59 Theophylline (Chalo-Dur) 100 mg EVERY 12 HOURS ORAL 10/28/17 09:00 11/27/17 08:59 10/28/17 08:34 Assessment/Plan Assessment/Plan ASSESSMENT acute COPD exacerbation asthma possible URI possible early PNA tobacco abuse HTN PLAN OF CARE MS floor O2 titrate to keep sat above 92% pulmonary toilet with HHN ATC and prn Theophylline trial IV steroids and taper soon empiric abx sputum cx influenza screen negative CXR negative fup with CXR in am a/tussive prn DVT prophayxlis 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
[2017-10-28 12:39] VITALS: BP 151/94
[2017-10-28] MEDS: Albuterol/Ipratropium 3ml neb HHN SCH ×2 (12:49→20:04)
[2017-10-28] MEDS: Norco 5mg/325mg tab ORAL PRN ×2 (14:28→18:24)
--- NOTE | 2017-10-28 14:29 | History & Physical ---
History and Physical History & Physicial Dictated for Int Med-Dr Munguia no. [id number]. MOLINA MARIE Oct 28, 2017 14:29
[2017-10-28 18:06] VITALS: BP 146/87
[2017-10-28 20:56] VITALS: BP 133/76
[2017-10-28] MEDS ORDERED: Tubing IV Secondary IV ONE (22:35)
[2017-10-28] MEDS ORDERED: D5 1/2NS 1000ml IV ONE (22:35)
[2017-10-28] MEDS ORDERED: NS 500ML ONE (22:35)
[2017-10-29] VITALS: BP 126/74
--- NOTE | 2017-10-29 00:30 | History and Physical Report ---
DATE OF ADMISSION: 10/27/2017 CHIEF COMPLAINT: The patient is a 52-year-old female who presents with complaint of fever, chills, and cough. HISTORY OF PRESENT ILLNESS: This began approximately [id number]-half weeks previously. The patient states she had a "cold." The patient complained of subjective fevers and chills. The patient complains of rhinorrhea. The patient complains of cough, which is productive of a sputum. The patient presented to [facility] emergency room. The patient was admitted for asthma exacerbation and probable pneumonia. REVIEW OF SYSTEMS: CONSTITUTIONAL: The patient denies weight loss or weight gain. The patient complains of subjective fevers and chills as above. HEENT: The patient denies ear or throat pain. The patient denies headache. CARDIOVASCULAR: The patient denies palpitations or chest pain. CHEST: The patient complains of wheezes. The patient complains of cough as above. The patient denies shortness of breath. ABDOMEN: The patient denies nausea, vomiting, diarrhea, or constipation. GENITOURINARY: The patient denies dysuria or increased frequency of urination. NEUROMUSCULAR: The patient seizures or generalized weakness. PAST MEDICAL HISTORY: Significant for: 1. Asthma. 2. Osteoarthritis of the knees. PAST SURGICAL HISTORY: Significant for section x2. CURRENT MEDICATIONS: 1. Gabapentin 400 mg one tablet p.o. three times daily. 2. Albuterol/Atrovent nebulized q.6 h., however, the patient has been out of this medication for two months. 3. Advair 250/50 mcg one puff p.o. twice daily, however, the patient has been out of this medication for two months. ALLERGIES: To egg. SOCIAL HISTORY: The patient is single and is unemployed. The patient admits to tobacco use of one pack per day. The patient admits to alcohol use on the weekends. The patient denies other drugs abuse. PHYSICAL EXAMINATION: GENERAL: The patient is a well-developed, well-nourished female, in no apparent distress. VITAL SIGNS: Temperature 98.7 degrees, respirations 20, pulse 94 to 119, blood pressure 151/95. HEENT: Eyes, pupils are equal and responsive to light and accommodation. Extraocular movements are intact. NECK: Supple without lymphadenopathy. LUNGS: Wheezes in bilateral lung crespo. Crackles one-third of the way up in the bilateral bases. Otherwise, lungs are clear to auscultation without wheezes or rales. CARDIOVASCULAR: Regular rate. S1, S2 normal without murmurs, rubs, or gallops. ABDOMEN: Soft, nontender, and nondistended. Positive bowel sounds. No evidence of hepatosplenomegaly. Currently, no rebound or guarding noted. EXTREMITIES: Negative for clubbing, cyanosis, or edema. RECTAL/GENITAL: Refused. NEUROLOGICAL: Cranial nerves II through XII are grossly intact without focal deficits. Motor strength is 5/5 bilaterally. Deep tendon reflexes are 2+ plantar. LABORATORY STUDIES: WBC 5.7, hemoglobin 13.9, hematocrit 44.4, platelets 313,000. Sodium 141, potassium 3.8 ,chloride 104, CO2 27, BUN 12, creatinine 0.8, glucose 123. Chest x-ray is pending. ASSESSMENT: This is a 52-year-old female: 1. Bronchitis. 2. Acute exacerbation of asthma. 3. Cough. 4. Fever. 5. Osteoarthritis of the knees. TREATMENT: 1. Bronchitis/acute asthma exacerbation. A pulmonary consultation has been obtained with Dr. Christina. The patient has been placed empirically on intravenous Solu-Medrol. Zosyn has been added. Await chest x-ray results as above. 2. Cough/fever. Alpesh Roque M.D. DR: Bianca JOB#: [id number] CC:
[2017-10-29 04:55] VITALS: BP 130/69
[2017-10-29] MEDS: Piperacillin/Tazobactam 3.375 GM in NS 110 ML IVPB SCH ×3 (05:19→21:26)
[2017-10-29] MEDS: Solu-MEDROL 40mg Inj IVP SCH (05:19)
[2017-10-29 08:00] VITALS: BP 163/92
[2017-10-29] MEDS: Theophylline ER 100mg ORAL SCH ×2 (08:37→20:42)
[2017-10-29] MEDS: Heparin 5000 units/ml inj SUBQ SCH ×2 (08:41→20:45)
[2017-10-29 09:48] LABS: ANION GAP 9 mmol/L (5-15); BLOOD UREA NITROGEN 18 mg/dL (7-18); CALCIUM 8.7 MG/DL (8.5-10.1); CARBON DIOXIDE 27 MMOL/L (21-32); CHLORIDE 102 MMOL/L (98-107); POTASSIUM 4.4 MMOL/L (3.5-5.1); SODIUM 138 MMOL/L (136-145)
[2017-10-29] MEDS: Albuterol/Ipratropium 3ml neb HHN SCH ×3 (09:50→18:18)
[2017-10-29 09:52] LABS: HEMATOCRIT 44.2 % (37.0-47.0); HEMOGLOBIN 14.1 G/DL (12.0-16.0); MEAN CORPUSCULAR VOLUME 98 FL (80-99); PLATELET COUNT 343 K/UL (150-450); RED BLOOD COUNT 4.52 M/UL (4.20-5.40); RED CELL DISTRIBUTION WIDTH 12.9 % (11.6-14.8); WHITE BLOOD COUNT 8.9 K/UL (4.8-10.8)
[2017-10-29] MEDS: LORazepam Inj 2mg/ml 1ml IV PRN (10:15)
[2017-10-29 12:00] VITALS: BP 144/85
--- NOTE | 2017-10-29 13:58 | Internal Med Progress Note ---
Subjective Date of Service: Oct 29, 2017 Physician Name Molina Marie Attending Physician Mookie Munguia MD Current Medications Medications (Trade) Dose Ordered Sig/Reddy Route PRN Reason Start Time Stop Time Status Last Admin Dose Admin Acetaminophen (Tylenol) 650 mg Q6H PRN ORAL Mild Pain/Temp > 100.5 10/28/17 08:00 11/27/17 07:59 10/28/17 08:35 Acetaminophen/ Hydrocodone Bitart ([place] 5/325) 1 tab Q4H PRN ORAL Moderate Pain (Pain Scale 4-6) 10/28/17 12:45 11/04/17 12:44 10/28/17 18:24 Albuterol/ Ipratropium (Albuterol/ Ipratropium) 3 ml Q4H PRN HHN dyspnea 10/27/17 19:00 11/01/17 18:59 Albuterol/ Ipratropium (Albuterol/ Ipratropium) 3 ml TIDRT HHN 10/28/17 13:00 11/02/17 12:59 10/29/17 13:25 Amlodipine Besylate (Norvasc) 2.5 mg DAILY ORAL 10/29/17 09:00 11/28/17 08:59 10/29/17 08:38 Dextrose (Dextrose 50%) STAT PRN IV Hypoglycemia 10/27/17 19:00 11/26/17 18:59 Gabapentin (Neurontin) 300 mg TID ORAL 10/28/17 09:00 11/27/17 08:59 10/29/17 13:11 Heparin Sodium (Porcine) (Heparin 5000 units/ml) 5,000 units EVERY 12 HOURS SUBQ 10/27/17 21:00 11/26/17 20:59 10/29/17 08:41 Ketorolac Tromethamine (Toradol 30mg) 30 mg Q8H PRN IV moderate pain 4-6 10/27/17 19:00 11/01/17 18:59 Lorazepam (Ativan 2mg/ml 1ml) 0.5 mg Q4H PRN IV For Anxiety 10/27/17 19:00 11/03/17 18:59 10/29/17 10:15 Methylprednisolone Sodium Succinate (Solu-MEDROL) 60 mg Q8HR IVP 10/28/17 22:00 11/27/17 00:00 10/29/17 05:19 Morphine Sulfate (Morphine Sulfate) 2 mg Q4H PRN IVP severe pain 7-10 10/27/17 19:00 11/03/17 18:59 10/28/17 10:18 Nicotine (Nicoderm) 1 patch Q24H TDERMAL 10/28/17 19:00 11/27/17 18:59 Nitroglycerin (Ntg) 0.4 mg Q5M X 3 DOSES PRN SL Prn Chest Pain 10/27/17 19:00 11/26/17 18:59 Ondansetron HCl (Zofran) 4 mg Q6H PRN IVP Nausea & Vomiting 10/27/17 19:00 11/26/17 18:59 Piperacillin Sod/ Tazobactam Sod 3.375 gm/Sodium Chloride 110 ml @ 27.5 mls/hr EVERY 8 HOURS IVPB 10/27/17 22:00 11/03/17 21:59 10/29/17 05:19 Promethazine HCl/ Codeine (Phenergan with Codeine) 5 ml Q6H PRN ORAL cough 10/27/17 19:00 11/26/17 18:59 Temazepam (Restoril) 15 mg HSPRN PRN ORAL Insomnia 10/27/17 19:00 11/03/17 18:59 10/29/17 00:41 Theophylline (Chalo-Dur) 100 mg EVERY 12 HOURS ORAL 10/28/17 09:00 11/27/17 08:59 10/29/17 08:37 Allergies: Coded Allergies: No Known Allergies (Unverified , 10/28/17) Pt. stated she is not allergic to any medication / food ROS Limited/Unobtainable: No Constitutional: Reports: no symptoms HEENT: Reports: no symptoms Cardiovascular: Reports: no symptoms Respiratory: Reports: shortness of breath, wheezing Gastrointestinal/Abdominal: Reports: no symptoms Genitourinary: Reports: no symptoms Neurologic/Psychiatric: Reports: no symptoms Subjective 52 YO F admitted with cough and shortness of breath. Now bronchitis with asthma exacerbation. Cover for Int Oli-Dr Munguia Objective Last Vital Signs Date Time Temp Pulse Resp B/P (MAP) Pulse Ox O2 Delivery O2 Flow Rate FiO2 10/29/17 10:00 96 20 98 Room Air 21 1/7/18 08:38 163/96 10/29/17 08:00 98.4 General Appearance: WD/WN, no apparent distress, alert EENT: PERRL/EOMI, normal ENT inspection Neck: non-tender, normal alignment, supple, normal inspection Cardiovascular: normal peripheral pulses, normal rate, regular rhythm, no gallop/murmur, no JVD Respiratory/Chest: chest wall non-tender, respiratory distress, crackles/rales , rhonchi - bilaterally, expiratory wheezing Abdomen: normal bowel sounds, non tender, soft, no organomegaly, no mass Extremities: normal range of motion, non-tender 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, no motor/sensory deficits Skin: normal pigmentation, warm/dry Laboratory Tests Test 10/29/17 09:10 White Blood Count 8.9 K/UL (4.8-10.8) Red Blood Count 4.52 M/UL (4.20-5.40) Hemoglobin 14.1 G/DL (12.0-16.0) Hematocrit 44.2 % (37.0-47.0) Mean Corpuscular Volume 98 FL (80-99) Mean Corpuscular Hemoglobin 31.2 PG (27.0-31.0) H Mean Corpuscular Hemoglobin Concent 31.9 G/DL (32.0-36.0) L Red Cell Distribution Width 12.9 % (11.6-14.8) Platelet Count 343 K/UL (150-450) Mean Platelet Volume 5.9 FL (6.5-10.1) L Neutrophils (%) (Auto) % (45.0-75.0) Lymphocytes (%) (Auto) % (20.0-45.0) Monocytes (%) (Auto) % (1.0-10.0) Eosinophils (%) (Auto) % (0.0-3.0) Basophils (%) (Auto) % (0.0-2.0) Differential Total Cells Counted 100 Neutrophils % (Manual) 79 % (45-75) H Lymphocytes % (Manual) 12 % (20-45) L Monocytes % (Manual) 5 % (1-10) Eosinophils % (Manual) 0 % (0-3) Basophils % (Manual) 0 % (0-2) Band Neutrophils 4 % (0-8) Platelet Estimate Adequate Platelet Morphology Normal Red Blood Cell Morphology Normal Sodium Level 138 MMOL/L (136-145) Potassium Level 4.4 MMOL/L (3.5-5.1) Chloride Level 102 MMOL/L (98-107) Carbon Dioxide Level 27 MMOL/L (21-32) Anion Gap 9 mmol/L (5-15) Blood Urea Nitrogen 18 mg/dL (7-18) Creatinine 1.0 MG/DL (0.55-1.30) Estimat Glomerular Filtration Rate > 60 mL/min (>60) Glucose Level 176 MG/DL (74-106) H Calcium Level 8.7 MG/DL (8.5-10.1) Microbiology Date/Time Source Procedure Growth Status 10/27/17 17:00 Blood Blood Culture - Preliminary NO GROWTH AFTER 24 HOURS Resulted 10/27/17 16:50 Blood Blood Culture - Preliminary NO GROWTH AFTER 24 HOURS Resulted 10/27/17 17:25 Nasal Nares Influenza Types A,B Antigen (VAZQUEZ) - Final Complete 10/27/17 17:00 Sputum Gram Stain - Final Resulted 10/27/17 17:00 Sputum Sputum Culture - Preliminary NORMAL UPPER RESPIRATORY ALAN AT 24 ... Resulted Intake and Output 10/28/17 10/29/17 19:00 07:00 Intake Total 480 ml 260 ml Balance 480 ml 260 ml Intake Oral 480 ml 260 ml # Voids 2 2 Assessment/Plan Problem List: (1) Cough (2) Fever (3) COPD with acute exacerbation Assessment & Plan: Continue IV solumedrol and nebs per pulmonary (4) Asthma (5) Purulent bronchitis Assessment & Plan: Continue zosyn IV (6) HTN (hypertension) Assessment & Plan: Continue amlodipine Status: not improved MOLINA MARIE Oct 29, 2017 13:58
--- NOTE | 2017-10-29 15:10 | Pulmonology Progress Note ---
Assessment/Plan Assessment/Plan ASSESSMENT acute COPD exacerbation asthma URI tobacco dependence with w/drawal HTN PLAN OF CARE MS floor O2 titrate to keep sat above 92% pulmonary toilet with HHN ATC and prn Theophylline trial IV steroids and taper soon empiric abx sputum cx influenza screen negative CXR negative fup with CXR today - no evidence of PNA a/tussive prn DVT prophayxlis psychosocial rehabilitation counselor on smoking cessation Nicotine patch BP management add low dose CCB/Norvasc upon dc will need script for Medrol dose pack, oral abx, Advair, Proair, Albuterol and Ipratropium -single doses for HHN case discussed and evaluated by supervising physician Subjective Allergies: Coded Allergies: No Known Allergies (Unverified , 10/28/17) Pt. stated she is not allergic to any medication / food Subjective still chest tightness, wheezing , congestion but noted some improvement from yesterday afebrile, no leukocytosis on RA pulse ox stable Objective Last 24 Hour Vital Signs Date Time Temp Pulse Resp B/P (MAP) Pulse Ox O2 Delivery O2 Flow Rate FiO2 10/29/17 13:25 96 20 97 Room Air 21 10/29/17 13:25 93 22 96 Room Air 21 10/29/17 12:00 97.0 77 20 144/85 96 Room Air 10/29/17 10:00 96 20 98 Room Air 21 10/29/17 09:50 94 22 95 Room Air 21 10/29/17 08:38 96 163/96 10/29/17 08:00 98.4 95 22 163/92 94 Room Air 10/29/17 07:56 97 20 Room Air 21 10/29/17 04:55 98.6 82 20 130/69 94 10/29/17 00:00 98.6 89 18 126/74 95 Room Air 10/28/17 20:56 98.5 92 20 133/76 95 10/28/17 20:12 97 20 99 Room Air 21 10/28/17 20:06 95 20 Room Air 21 10/28/17 20:05 100 22 94 Room Air 21 10/28/17 18:06 97.4 106 20 146/87 99 Room Air Intake and Output 10/28/17 10/29/17 19:00 07:00 Intake Total 480 ml 260 ml Balance 480 ml 260 ml Intake Oral 480 ml 260 ml # Voids 2 2 Objective General Appearance: WD/WN, alert Lines, tubes and drains: peripheral HEENT: normocephalic, atraumatic, anicteric Respiratory/Chest: chest wall non-tender, scattered expiratory wheezes Cardiovascular/Chest: normal peripheral pulses, regular rhythm, no JVD, Abdomen: normal bowel sounds, non tender, soft Extremities: normal range of motion, no calf tenderness Skin Exam: warm/dry Neurologic: no motor/sensory deficits, alert, oriented x 3, responsive, normal mood/affect Microbiology Date/Time Source Procedure Growth Status 10/27/17 17:00 Blood Blood Culture - Preliminary NO GROWTH AFTER 24 HOURS Resulted 10/27/17 16:50 Blood Blood Culture - Preliminary NO GROWTH AFTER 24 HOURS Resulted 10/27/17 17:25 Nasal Nares Influenza Types A,B Antigen (VAZQUEZ) - Final Complete 10/27/17 17:00 Sputum Gram Stain - Final Resulted 10/27/17 17:00 Sputum Sputum Culture - Preliminary NORMAL UPPER RESPIRATORY ALAN AT 24 ... Resulted Laboratory Tests 10/29/17 09:10: White Blood Count 8.9, Red Blood Count 4.52, Hemoglobin 14.1, Hematocrit 44.2, Mean Corpuscular Volume 98, Mean Corpuscular Hemoglobin 31.2H, Mean Corpuscular Hemoglobin Concent 31.9L, Red Cell Distribution Width 12.9, Platelet Count 343, Mean Platelet Volume 5.9L, Neutrophils (%) (Auto) , Lymphocytes (%) (Auto) , Monocytes (%) (Auto) , Eosinophils (%) (Auto) , Basophils (%) (Auto) , Differential Total Cells Counted 100, Neutrophils % (Manual) 79H, Lymphocytes % (Manual) 12L, Monocytes % (Manual) 5, Eosinophils % (Manual) 0, Basophils % ( Manual) 0, Band Neutrophils 4, Platelet Estimate Adequate, Platelet Morphology Normal, Red Blood Cell Morphology Normal, Sodium Level 138, Potassium Level 4.4 , Chloride Level 102, Carbon Dioxide Level 27, Anion Gap 9, Blood Urea Nitrogen 18, Creatinine 1.0, Estimat Glomerular Filtration Rate > 60, Glucose Level 176H , Calcium Level 8.7 Current Medications Medications (Trade) Dose Ordered Sig/Reddy Route PRN Reason Start Time Stop Time Status Last Admin Dose Admin Acetaminophen (Tylenol) 650 mg Q6H PRN ORAL Mild Pain/Temp > 100.5 10/28/17 08:00 11/27/17 07:59 10/28/17 08:35 Acetaminophen/ Hydrocodone Bitart ([place] 5/325) 1 tab Q4H PRN ORAL Moderate Pain (Pain Scale 4-6) 10/28/17 12:45 11/04/17 12:44 10/28/17 18:24 Albuterol/ Ipratropium (Albuterol/ Ipratropium) 3 ml Q4H PRN HHN dyspnea 10/27/17 19:00 11/01/17 18:59 Albuterol/ Ipratropium (Albuterol/ Ipratropium) 3 ml TIDRT HHN 10/28/17 13:00 11/02/17 12:59 10/29/17 13:25 Amlodipine Besylate (Norvasc) 2.5 mg DAILY ORAL 10/29/17 09:00 11/28/17 08:59 10/29/17 08:38 Dextrose (Dextrose 50%) STAT PRN IV Hypoglycemia 10/27/17 19:00 11/26/17 18:59 Gabapentin (Neurontin) 300 mg TID ORAL 10/28/17 09:00 11/27/17 08:59 10/29/17 13:11 Heparin Sodium (Porcine) (Heparin 5000 units/ml) 5,000 units EVERY 12 HOURS SUBQ 10/27/17 21:00 11/26/17 20:59 10/29/17 08:41 Ketorolac Tromethamine (Toradol 30mg) 30 mg Q8H PRN IV moderate pain 4-6 10/27/17 19:00 11/01/17 18:59 Lorazepam (Ativan 2mg/ml 1ml) 0.5 mg Q4H PRN IV For Anxiety 10/27/17 19:00 11/03/17 18:59 10/29/17 10:15 Methylprednisolone Sodium Succinate (Solu-MEDROL) 60 mg Q8HR IVP 10/28/17 22:00 11/27/17 00:00 10/29/17 05:19 Morphine Sulfate (Morphine Sulfate) 2 mg Q4H PRN IVP severe pain 7-10 10/27/17 19:00 11/03/17 18:59 10/28/17 10:18 Nicotine (Nicoderm) 1 patch Q24H TDERMAL 10/28/17 19:00 11/27/17 18:59 Nitroglycerin (Ntg) 0.4 mg Q5M X 3 DOSES PRN SL Prn Chest Pain 10/27/17 19:00 11/26/17 18:59 Ondansetron HCl (Zofran) 4 mg Q6H PRN IVP Nausea & Vomiting 10/27/17 19:00 11/26/17 18:59 Piperacillin Sod/ Tazobactam Sod 3.375 gm/Sodium Chloride 110 ml @ 27.5 mls/hr EVERY 8 HOURS IVPB 10/27/17 22:00 11/03/17 21:59 10/29/17 05:19 Promethazine HCl/ Codeine (Phenergan with Codeine) 5 ml Q6H PRN ORAL cough 10/27/17 19:00 11/26/17 18:59 Temazepam (Restoril) 15 mg HSPRN PRN ORAL Insomnia 10/27/17 19:00 11/03/17 18:59 10/29/17 00:41 Theophylline (Chalo-Dur) 100 mg EVERY 12 HOURS ORAL 10/28/17 09:00 11/27/17 08:59 10/29/17 08:37 Vladimir ([facility])Ning NP Oct 29, 2017 15:10
[2017-10-29] MEDS: Norco 5mg/325mg tab ORAL PRN (16:43)
[2017-10-29 17:53] VITALS: BP 167/76
[2017-10-29] MEDS: Solu-MEDROL 125mg Inj IVP SCH (20:42)
[2017-10-30] MEDS: Piperacillin/Tazobactam 3.375 GM in NS 110 ML IVPB SCH ×2 (05:40→14:20)
[2017-10-30 07:29] LABS: BASOPHILS % (AUTO) 0.6 % (0.0-2.0); EOSINOPHILS % (AUTO) 0.1 % (0.0-3.0); HEMATOCRIT 39.9 % (37.0-47.0); HEMOGLOBIN 13.3 G/DL (12.0-16.0); LYMPHOCYTES % (AUTO) 15.3 % (20.0-45.0); MEAN CORPUSCULAR VOLUME 96 FL (80-99); MONOCYTES % (AUTO) 2.7 % (1.0-10.0); NEUTROPHILS % (AUTO) 81.4 % (45.0-75.0); PLATELET COUNT 305 K/UL (150-450); RED BLOOD COUNT 4.14 M/UL (4.20-5.40); RED CELL DISTRIBUTION WIDTH 12.4 % (11.6-14.8); WHITE BLOOD COUNT 7.8 K/UL (4.8-10.8)
[2017-10-30 08:00] VITALS: BP 151/90
[2017-10-30 08:00] LABS: ANION GAP 11 mmol/L (5-15); BLOOD UREA NITROGEN 15 mg/dL (7-18); CALCIUM 8.3 MG/DL (8.5-10.1); CARBON DIOXIDE 25 MMOL/L (21-32); CHLORIDE 104 MMOL/L (98-107); CREATININE 0.8 MG/DL (0.55-1.30); POTASSIUM 4.3 MMOL/L (3.5-5.1); SODIUM 140 MMOL/L (136-145)
[2017-10-30] MEDS: Theophylline ER 100mg ORAL SCH (11:09)
[2017-10-30] MEDS: Morphine Sulfate 2mg/ml Inj IVP PRN (11:09)
[2017-10-30] MEDS: Solu-MEDROL 125mg Inj IVP SCH (11:10)
[2017-10-30] MEDS: Heparin 5000 units/ml inj SUBQ SCH (11:18)
[2017-10-30] MEDS: Albuterol/Ipratropium 3ml neb HHN SCH ×2 (11:43→13:00)
--- NOTE | 2017-10-30 11:48 | Internal Med Progress Note ---
Subjective Date of Service: Oct 30, 2017 Physician Name Molina Marie Attending Physician Mookie Munguia MD Current Medications Medications (Trade) Dose Ordered Sig/Reddy Route PRN Reason Start Time Stop Time Status Last Admin Dose Admin Acetaminophen (Tylenol) 650 mg Q6H PRN ORAL Mild Pain/Temp > 100.5 10/28/17 08:00 11/27/17 07:59 10/28/17 08:35 Acetaminophen/ Hydrocodone Bitart ([place] 5/325) 1 tab Q4H PRN ORAL Moderate Pain (Pain Scale 4-6) 10/28/17 12:45 11/04/17 12:44 10/29/17 16:43 Albuterol/ Ipratropium (Albuterol/ Ipratropium) 3 ml Q4H PRN HHN dyspnea 10/27/17 19:00 11/01/17 18:59 10/30/17 01:26 Albuterol/ Ipratropium (Albuterol/ Ipratropium) 3 ml TIDRT HHN 10/28/17 13:00 11/02/17 12:59 10/30/17 11:43 Amlodipine Besylate (Norvasc) 2.5 mg DAILY ORAL 10/29/17 09:00 11/28/17 08:59 10/30/17 11:09 Dextrose (Dextrose 50%) STAT PRN IV Hypoglycemia 10/27/17 19:00 11/26/17 18:59 Gabapentin (Neurontin) 300 mg TID ORAL 10/28/17 09:00 11/27/17 08:59 10/30/17 11:09 Heparin Sodium (Porcine) (Heparin 5000 units/ml) 5,000 units EVERY 12 HOURS SUBQ 10/27/17 21:00 11/26/17 20:59 10/30/17 11:18 Ketorolac Tromethamine (Toradol 30mg) 30 mg Q8H PRN IV moderate pain 4-6 10/27/17 19:00 11/01/17 18:59 Lorazepam (Ativan 2mg/ml 1ml) 0.5 mg Q4H PRN IV For Anxiety 10/27/17 19:00 11/03/17 18:59 10/29/17 10:15 Methylprednisolone Sodium Succinate (Solu-MEDROL) 60 mg Q12HR IVP 10/29/17 21:00 11/27/17 00:00 10/30/17 11:10 Morphine Sulfate (Morphine Sulfate) 2 mg Q4H PRN IVP severe pain 7-10 10/27/17 19:00 11/03/17 18:59 10/30/17 11:09 Nicotine (Nicoderm) 1 patch Q24H TDERMAL 10/28/17 19:00 11/27/17 18:59 Nitroglycerin (Ntg) 0.4 mg Q5M X 3 DOSES PRN SL Prn Chest Pain 10/27/17 19:00 11/26/17 18:59 Ondansetron HCl (Zofran) 4 mg Q6H PRN IVP Nausea & Vomiting 10/27/17 19:00 11/26/17 18:59 Piperacillin Sod/ Tazobactam Sod 3.375 gm/Sodium Chloride 110 ml @ 27.5 mls/hr EVERY 8 HOURS IVPB 10/27/17 22:00 11/03/17 21:59 10/30/17 05:40 Promethazine HCl/ Codeine (Phenergan with Codeine) 5 ml Q6H PRN ORAL cough 10/27/17 19:00 11/26/17 18:59 Temazepam (Restoril) 15 mg HSPRN PRN ORAL Insomnia 10/27/17 19:00 11/03/17 18:59 10/29/17 20:42 Theophylline (Chalo-Dur) 100 mg EVERY 12 HOURS ORAL 10/28/17 09:00 11/27/17 08:59 10/30/17 11:09 Allergies: Coded Allergies: No Known Allergies (Unverified , 10/28/17) Pt. stated she is not allergic to any medication / food ROS Limited/Unobtainable: No Constitutional: Reports: no symptoms HEENT: Reports: no symptoms Cardiovascular: Reports: no symptoms Respiratory: Reports: wheezing Gastrointestinal/Abdominal: Reports: no symptoms Genitourinary: Reports: no symptoms Neurologic/Psychiatric: Reports: no symptoms Subjective 52 YO F admitted with cough and shortness of breath. Now bronchitis with asthma exacerbation. Cover for Int Oli-Dr Munguia Objective Last Vital Signs Date Time Temp Pulse Resp B/P (MAP) Pulse Ox O2 Delivery O2 Flow Rate FiO2 10/30/17 11:43 78 18 Room Air 10/30/17 11:43 98 10/30/17 11:09 151/90 10/30/17 08:00 97.0 10/30/17 01:27 21 Laboratory Tests Test 10/30/17 05:00 White Blood Count 7.8 K/UL (4.8-10.8) Red Blood Count 4.14 M/UL (4.20-5.40) L Hemoglobin 13.3 G/DL (12.0-16.0) Hematocrit 39.9 % (37.0-47.0) Mean Corpuscular Volume 96 FL (80-99) Mean Corpuscular Hemoglobin 32.2 PG (27.0-31.0) H Mean Corpuscular Hemoglobin Concent 33.4 G/DL (32.0-36.0) Red Cell Distribution Width 12.4 % (11.6-14.8) Platelet Count 305 K/UL (150-450) Mean Platelet Volume 5.8 FL (6.5-10.1) L Neutrophils (%) (Auto) 81.4 % (45.0-75.0) H Lymphocytes (%) (Auto) 15.3 % (20.0-45.0) L Monocytes (%) (Auto) 2.7 % (1.0-10.0) Eosinophils (%) (Auto) 0.1 % (0.0-3.0) Basophils (%) (Auto) 0.6 % (0.0-2.0) Sodium Level 140 MMOL/L (136-145) Potassium Level 4.3 MMOL/L (3.5-5.1) Chloride Level 104 MMOL/L (98-107) Carbon Dioxide Level 25 MMOL/L (21-32) Anion Gap 11 mmol/L (5-15) Blood Urea Nitrogen 15 mg/dL (7-18) Creatinine 0.8 MG/DL (0.55-1.30) Estimat Glomerular Filtration Rate > 60 mL/min (>60) Glucose Level 153 MG/DL (74-106) H Calcium Level 8.3 MG/DL (8.5-10.1) L Microbiology Date/Time Source Procedure Growth Status 10/27/17 17:00 Blood Blood Culture - Preliminary NO GROWTH AFTER 48 HOURS Resulted 10/27/17 16:50 Blood Blood Culture - Preliminary NO GROWTH AFTER 48 HOURS Resulted 10/27/17 17:25 Nasal Nares Influenza Types A,B Antigen (VAZQUEZ) - Final Complete 10/27/17 17:00 Sputum Gram Stain - Final Complete 10/27/17 17:00 Sputum Sputum Culture - Final NORMAL UPPER RESPIRATORY ALAN PRESENT Complete Intake and Output 10/29/17 10/30/17 19:00 07:00 Intake Total 840 ml Balance 840 ml Intake Oral 840 ml # Voids 4 Objective General Appearance: WD/WN, no apparent distress, alert EENT: PERRL/EOMI, normal ENT inspection Neck: non-tender, normal alignment, supple, normal inspection Cardiovascular: normal peripheral pulses, normal rate, regular rhythm, no gallop/murmur, no JVD Respiratory/Chest: chest wall non-tender, respiratory distress, crackles/rales , rhonchi - bilaterally, expiratory wheezing Abdomen: normal bowel sounds, non tender, soft, no organomegaly, no mass Extremities: normal range of motion, non-tender 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
[2017-10-30 12:00] VITALS: BP 160/101
[2017-10-30 16:00] VITALS: BP 175/102
--- NOTE | 2017-10-30 16:58 | Pulmonology Progress Note ---
Assessment/Plan Problems: (1) Purulent bronchitis (2) HTN (hypertension) (3) Asthma (4) Nicotine addiction (5) COPD with acute exacerbation Assessment/Plan improving respiratory atreatment sputum ws negative Hflu was negativ dc home with oral abx and steroids Subjective ROS Limited/Unobtainable: No Interval Events: less cough Allergies: Coded Allergies: No Known Allergies (Unverified , 10/28/17) Pt. stated she is not allergic to any medication / food Objective Last 24 Hour Vital Signs Date Time Temp Pulse Resp B/P (MAP) Pulse Ox O2 Delivery O2 Flow Rate FiO2 10/30/17 13:48 Room Air 21 10/30/17 13:48 Room Air 21 10/30/17 12:00 97.0 66 20 160/101 97 10/30/17 11:56 78 18 98 Room Air 21 10/30/17 11:43 78 18 Room Air 10/30/17 11:43 78 18 98 Room Air 10/30/17 11:39 97.0 10/30/17 11:09 82 151/90 10/30/17 08:00 97.0 82 20 151/90 96 10/30/17 01:27 78 20 100 Room Air 21 10/30/17 01:20 87 22 97 Room Air 21 10/29/17 19:06 98 20 Room Air 21 10/29/17 18:20 Room Air 21 10/29/17 18:20 Room Air 21 10/29/17 17:53 98.6 90 22 167/76 98 Room Air Intake and Output 10/29/17 10/30/17 19:00 07:00 Intake Total 840 ml Balance 840 ml Intake Oral 840 ml # Voids 4 General Appearance: WD/WN HEENT: normocephalic Respiratory/Chest: chest wall non-tender, lungs clear Breasts: no masses Cardiovascular: normal peripheral pulses Genitourinary: normal external genitalia Extremities: no cyanosis Skin: no rash 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, no motor/sensory deficits Lymphatic: no neck adenopathy Microbiology Date/Time Source Procedure Growth Status 10/27/17 17:00 Blood Blood Culture - Preliminary NO GROWTH AFTER 48 HOURS Resulted 10/27/17 17:25 Nasal Nares Influenza Types A,B Antigen (VAZQUEZ) - Final Complete 10/27/17 17:00 Sputum Gram Stain - Final Complete 10/27/17 17:00 Sputum Sputum Culture - Final NORMAL UPPER RESPIRATORY ALAN PRESENT Complete Laboratory Tests 10/30/17 05:00: White Blood Count 7.8, Red Blood Count 4.14L, Hemoglobin 13.3, Hematocrit 39.9, Mean Corpuscular Volume 96, Mean Corpuscular Hemoglobin 32.2H, Mean Corpuscular Hemoglobin Concent 33.4, Red Cell Distribution Width 12.4, Platelet Count 305, Mean Platelet Volume 5.8L, Neutrophils (%) (Auto) 81.4H, Lymphocytes (%) (Auto) 15.3L, Monocytes (%) (Auto) 2.7, Eosinophils (%) (Auto) 0.1, Basophils (%) (Auto ) 0.6, Sodium Level 140, Potassium Level 4.3, Chloride Level 104, Carbon Dioxide Level 25, Anion Gap 11, Blood Urea Nitrogen 15, Creatinine 0.8, Estimat Glomerular Filtration Rate > 60, Glucose Level 153H, Calcium Level 8.3L Current Medications Medications (Trade) Dose Ordered Sig/Reddy Route PRN Reason Start Time Stop Time Status Last Admin Dose Admin Acetaminophen (Tylenol) 650 mg Q6H PRN ORAL Mild Pain/Temp > 100.5 10/28/17 08:00 11/27/17 07:59 10/28/17 08:35 Acetaminophen/ Hydrocodone Bitart ([place] 5/325) 1 tab Q4H PRN ORAL Moderate Pain (Pain Scale 4-6) 10/28/17 12:45 11/04/17 12:44 10/29/17 16:43 Albuterol/ Ipratropium (Albuterol/ Ipratropium) 3 ml Q4H PRN HHN dyspnea 10/27/17 19:00 11/01/17 18:59 10/30/17 01:26 Albuterol/ Ipratropium (Albuterol/ Ipratropium) 3 ml TIDRT HHN 10/28/17 13:00 11/02/17 12:59 10/30/17 11:43 Amlodipine Besylate (Norvasc) 2.5 mg DAILY ORAL 10/29/17 09:00 11/28/17 08:59 10/30/17 11:09 Dextrose (Dextrose 50%) STAT PRN IV Hypoglycemia 10/27/17 19:00 11/26/17 18:59 Gabapentin (Neurontin) 300 mg TID ORAL 10/28/17 09:00 11/27/17 08:59 10/30/17 14:12 Heparin Sodium (Porcine) (Heparin 5000 units/ml) 5,000 units EVERY 12 HOURS SUBQ 10/27/17 21:00 11/26/17 20:59 10/30/17 11:18 Ketorolac Tromethamine (Toradol 30mg) 30 mg Q8H PRN IV moderate pain 4-6 10/27/17 19:00 11/01/17 18:59 Lorazepam (Ativan 2mg/ml 1ml) 0.5 mg Q4H PRN IV For Anxiety 10/27/17 19:00 11/03/17 18:59 10/29/17 10:15 Methylprednisolone Sodium Succinate (Solu-MEDROL) 60 mg Q12HR IVP 10/29/17 21:00 11/27/17 00:00 10/30/17 11:10 Morphine Sulfate (Morphine Sulfate) 2 mg Q4H PRN IVP severe pain 7-10 10/27/17 19:00 11/03/17 18:59 10/30/17 11:09 Nicotine (Nicoderm) 1 patch Q24H TDERMAL 10/28/17 19:00 11/27/17 18:59 Nitroglycerin (Ntg) 0.4 mg Q5M X 3 DOSES PRN SL Prn Chest Pain 10/27/17 19:00 11/26/17 18:59 Ondansetron HCl (Zofran) 4 mg Q6H PRN IVP Nausea & Vomiting 10/27/17 19:00 11/26/17 18:59 Piperacillin Sod/ Tazobactam Sod 3.375 gm/Sodium Chloride 110 ml @ 27.5 mls/hr EVERY 8 HOURS IVPB 10/27/17 22:00 11/03/17 21:59 10/30/17 14:20 Promethazine HCl/ Codeine (Phenergan with Codeine) 5 ml Q6H PRN ORAL cough 10/27/17 19:00 11/26/17 18:59 Temazepam (Restoril) 15 mg HSPRN PRN ORAL Insomnia 10/27/17 19:00 11/03/17 18:59 10/29/17 20:42 Theophylline (Chalo-Dur) 100 mg EVERY 12 HOURS ORAL 10/28/17 09:00 11/27/17 08:59 10/30/17 11:09 ADEOLA DODSON Oct 30, 2017 16:58
[2017-10-30] MEDS ORDERED: NS 500ML ONE (18:59)
[2017-10-30] MEDS ORDERED: Tubing IV Secondary IV ONE (18:59)
--- NOTE | 2017-10-31 15:58 | Diagnostic Imaging Report ---
Indication: Chest pain Technique: XRAY Chest 1v Comparison: 10/27/2017 Findings: The cardiomediastinal silhouette is within normal limits. There is no focal consolidation, pneumothorax or pleural effusion. Osseous structures demonstrate no acute abnormality. Impression: No acute cardiopulmonary disease.
--- NOTE | 2017-10-31 15:58 | Diagnostic Imaging Report ---
Indication: Cough Technique: XRAY Chest 1v Comparison: 07/20/2017 Findings: The cardiomediastinal silhouette is within normal limits. There is no focal consolidation, pneumothorax or pleural effusion. Osseous structures demonstrate no acute abnormality. Impression: No acute cardiopulmonary disease.
--- NOTE | 2017-11-01 12:58 | Discharge Summary ---
Discharge Summary Hospital Course Date of Admission Oct 27, 2017 at 18:22 Date of Discharge Oct 30, 2017 at 19:00 Admitting Diagnosis ASTHMA HPI Lalo Sainz is a 52 year old female who was admitted on Oct 27, 2017 at 18:22 for Asthma Hospital Course DC SUMMARY #[id number] Discharge Condition Upon Discharge: stable Discharge Disposition Patient was discharged to Home (01) Discharge Diagnoses: Vladimir (Jacky),Ning RAZO Nov 01, 2017 12:58
[2017-11-01] MEDS ORDERED: IPRAT-ALBUT 0.5-3 ML IH (13:01)
[2017-11-01] MEDS ORDERED: LEVAQUIN500 MG ORAL (13:01)
[2017-11-01] MEDS ORDERED: PROAIR HFA8.5 GM INH (13:01)
[2017-11-01] MEDS ORDERED: MEDROL4 MG ORAL (13:01)
[2017-11-01] MEDS ORDERED: ADVAIR 250/501 PUFFS INH (13:01)
[2017-11-01] MEDS ORDERED: AMLODIPINE BESYL5 MG ORAL (13:02)
--- NOTE | 2017-11-02 03:15 | Discharge Summary 2 SIG ---
DATE OF ADMISSION: 10/27/2017 DATE OF DISCHARGE: 10/30/2017 REASON FOR ADMISSION: 52-year-old female with past medical history of COPD, asthma, hypertension, depression, and smoker, presented to emergency department complaining of shortness of breath, cough, and congestion. Shortness of breath was getting progressively worse and she had difficulty with ambulation. The patient reported wheezing and chest tightness. Apparently, the patient ran out of her albuterol and ipratropium, which she uses via nebulizing treatment when she gets cough and congestion. The patient felt that she caught a cold, but because she did not get her nebulizing treatment, she was getting progressively worse. Workup in the emergency department revealed stable vital signs with mild tachycardia-107. Laboratory work was unremarkable. Chest x-ray revealed no acute cardiopulmonary pathology. Influenza screen test was negative. The patient was admitted for further management with diagnoses of acute COPD exacerbation, asthma, possible upper respiratory infection, possible early pneumonia, tobacco abuse, and hypertension. HOSPITAL STAY: The patient was admitted to medical/surgical floor. The patient was provided with supplemental oxygen, which was titrated to keep saturation above 92%. Pulmonary toilet was provided around the clock and on as needed basis. Theophylline trial was started. The patient was started ] on IV steroids, which were gradually tapered. The patient was started on empiric antibiotics. Influenza screen test was negative. Chest x-ray negative. Antitussive provided as needed. Sputum culture was negative. Blood cultures were negative. Followup chest x-ray again revealed no acute cardiopulmonary disease. DVT prophylaxis provided. The patient was counseled on smoking cessation. The patient was provided with a nicotine patch. Blood pressure was managed with low dose of calcium channel henry. The patient was clinically improving. Troponin was negative upon admission. EKG revealed normal sinus rhythm. The patient was stable for discharge home. Prescription provided for Medrol, ProAir, Advair, empiric antibiotics, and unit doses of albuterol and ipratropium for use in nebulizing treatment. The patient to follow up with the primary medical doctor next week. FINAL DIAGNOSES: 1. Acute chronic obstructive pulmonary disease exacerbation. 2. Asthma. 3. Upper respiratory infection. 4. Tobacco dependence with withdrawal 5. Hypertension. DISCHARGE MEDICATIONS: See medication reconciliation list. DISCHARGE INSTRUCTIONS: The patient was discharged home. Follow up with primary medical doctor next week. deondre was cousneled on smoking cessation. Mookie Munguia M.D. [facility] DR: Danielle JOB#: [id number] CC: LINCOLN
--- NOTE | 2017-11-04 16:00 | Cardiology Report ---
APPROVED REPORT EKG Measurement Heart [id number] Normal sinus rhythm Normal ECG
== END 2017-10-30 19:00 | disposition home or self-care (01) | DRG 191 ==
LOC: EMR 17:00 → 3E 18:22 → EDBEDREQ 18:44
DX: J44.1 Chronic obstructive pulmonary disease with (acute) exacerbation (principal); F17.213 Nicotine dependence, cigarettes, with withdrawal; I50.9 Heart failure, unspecified; I10 Essential (primary) hypertension; I25.10 Atherosclerotic heart disease of native coronary artery without angina pectoris; M17.0 Bilateral primary osteoarthritis of knee; J06.9 Acute upper respiratory infection, unspecified
CPT/HCPCS: 36415; 71045; 80048; 80053; 81003; 82550; 82553; 83690; 83880; 84484; 85007; 85025; 86710; 87040; 87070; 87205; 93005; 94640; 94664; 99291; J7620

== ENCOUNTER 2017-12-31 01:17 | Inpatient (IN) | payer MEDICARE, OTHER ==
[~2017-12-31] VITALS: Ht 165.1 cm; Wt 83.9 kg
[2017-12-31] VITALS (7 sets, daily range): BP systolic 126–168; BP diastolic 61–98
[~2017-12-31 01:17] MED LIST changes: +ADVAIR 250/501 PUFFS INH; +AMLODIPINE BESYL5 MG ORAL; +IPRAT-ALBUT 0.5-3 ML IH; +LEVAQUIN500 MG ORAL; +MEDROL4 MG ORAL; +PROAIR HFA8.5 GM INH
[2017-12-31] MEDS ORDERED: Sodium Chloride 500ML 500 ML IV ONE (01:23)
[2017-12-31] MEDS ORDERED: Solu-MEDROL 125mg Inj IVP ONE (01:30)
[2017-12-31] MEDS: Ipratropium 0.02% Inh Soln 2.5ml UD HHN SCH ×3 (01:41→03:04)
[2017-12-31] MEDS: Albuterol ud Inhalation HHN SCH ×3 (01:42→03:05)
[2017-12-31] MEDS ORDERED: Promethazine/Codeine 5ml UD ORAL ONE (02:00)
--- NOTE | 2017-12-31 03:29 | Emergency Room Report ---
History of Present Illness General Chief Complaint: Dyspnea/Respdistress Source: Patient, EMS Present Illness HPI 32-year-old female who presents ED for evaluation. Patient brought in by EMS for shortness of breath. States she's been having flulike symptoms for the last 2 days. Cough and wheezing. History of asthma. Given breathing treatment by EMS. Denies fevers or chills. Denies chest pain. Denies sick contacts or recent travel. No other aggravating or relieving factors. Denies any other associated symptoms Allergies: Coded Allergies: No Known Allergies (Unverified , 10/28/17) Pt. stated she is not allergic to any medication / food Patient History Past Medical History: HTN, asthma, psych hx Past Surgical History: none Pertinent Family History: none Social History: Denies: smoking, alcohol use, drug use Now: No Immunizations: UTD Reviewed Nursing Documentation: PMH: Agreed, PSxH: Agreed Nursing Documentation-PMH Past Medical History: No History, Except For Hx Cardiac Problems: Yes Hx Hypertension: Yes Hx Pacemaker: No Hx Asthma: Yes Hx COPD: No Hx Cancer: No Hx Gastrointestinal Problems: No History Of Psychiatric Problem: Yes Hx Neurological Problems: No Review of Systems All Other Systems: negative except mentioned in HPI Physical Exam Vital Signs Date Time Temp Pulse Resp B/P (MAP) Pulse Ox O2 Delivery O2 Flow Rate FiO2 12/31/17 01:18 100.4 111 19 143/86 99 Room Air 100.4 12/31/17 01:38 21 Sp02 EP Interpretation: reviewed, normal General Appearance: alert, GCS 15, non-toxic, mild distress Head: normocephalic Eyes: bilateral eye normal inspection, bilateral eye PERRL ENT: normal ENT inspection Neck: normal inspection Respiratory: chest non-tender, decreased breath sounds, speaking full sentences , wheezing Cardiovascular #1: tachycardia Gastrointestinal: normal inspection Rectal: deferred Genitourinary: no CVA tenderness Musculoskeletal: normal inspection Neurologic: alert, oriented x3, responsive, motor strength/tone normal, sensory intact, speech normal Psychiatric: anxious Skin: normal inspection Lymphatic: normal inspection Medical Decision Making Diagnostic Impression: Primary Impression: COPD with acute exacerbation Additional Impressions: Influenza B Sepsis Qualified Codes: A41.9 - Sepsis, unspecified organism ER Course Hospital Course 52-year-old F presenting to ED with SOB, wheezing, cough. h/o COPD Differential diagnoses include: Pneumonia, CHF exacerbation, pneumothorax, fluid overload Clinical course Patient placed on stretcher. On electronic device monitor with stable vitals. After initial history and physical, I ordered nebulizer treatments. I ordered labs, IV fluids, EKG, chest x-ray, blood cultures, UA. Labs - no leukocytosis noted, hemoglobin/hematocrit stable, electrolytes okay, lactate > 5, troponins negative influenza B+ EKG - sinus tachycardia, no acute ischemic changes interpreted by me CXR - hyperinflated lungs. no infiltrates After breathing treatments patient continues to feel short of breath. Given Solu-Medrol. Given magnesium. Given 30 mL per KG fluid bolus. Given antibiotics. Given Tamiflu Case discussed with Dr. Munguia and he agreed to the patient to his service for further care and support I feel this is a highly complex case requiring extensive working including EKG/ Rhythm strip, Xray/CT/US, Blood/urine lab work, repeat exams while in ED, and administration of strong opiates/narcotics for pain control, admission to hospital or close patient follow up. Diagnosis - COPD exacerbation, influenza B, sepsis Patient admitted to telemetry in serious condition Labs Test 12/31/17 01:30 12/31/17 05:30 White Blood Count 6.7 K/UL (4.8-10.8) Red Blood Count 4.51 M/UL (4.20-5.40) Hemoglobin 14.4 G/DL (12.0-16.0) Hematocrit 42.4 % (37.0-47.0) Mean Corpuscular Volume 94 FL (80-99) Mean Corpuscular Hemoglobin 32.0 PG (27.0-31.0) Mean Corpuscular Hemoglobin Concent 34.0 G/DL (32.0-36.0) Red Cell Distribution Width 13.6 % (11.6-14.8) Platelet Count 292 K/UL (150-450) Mean Platelet Volume 6.2 FL (6.5-10.1) Neutrophils (%) (Auto) % (45.0-75.0) Lymphocytes (%) (Auto) % (20.0-45.0) Monocytes (%) (Auto) % (1.0-10.0) Eosinophils (%) (Auto) % (0.0-3.0) Basophils (%) (Auto) % (0.0-2.0) Sodium Level 140 MMOL/L (136-145) Potassium Level 3.7 MMOL/L (3.5-5.1) Chloride Level 103 MMOL/L (98-107) Carbon Dioxide Level 23 MMOL/L (21-32) Anion Gap 14 mmol/L (5-15) Blood Urea Nitrogen 11 mg/dL (7-18) Creatinine 0.9 MG/DL (0.55-1.30) Estimat Glomerular Filtration Rate > 60 mL/min (>60) Glucose Level 135 MG/DL (74-106) Lactic Acid Level 5.10 mmol/L (0.66-2.22) Calcium Level 9.6 MG/DL (8.5-10.1) Total Bilirubin 0.2 MG/DL (0.2-1.0) Aspartate Amino Transf (AST/SGOT) 26 U/L (15-37) Alanine Aminotransferase (ALT/SGPT) 29 U/L (12-78) Alkaline Phosphatase 64 U/L (46-116) Total Creatine Kinase 409 U/L (26-308) Creatine Kinase MB 3.2 NG/ML (0.0-3.6) Creatine Kinase MB Relative Index 0.7 Troponin I 0.000 ng/mL (0.000-0.056) Pro-B-Type Natriuretic Peptide 67 pg/mL (0-125) Total Protein 7.9 G/DL (6.4-8.2) Albumin 4.1 G/DL (3.4-5.0) Globulin 3.8 g/dL Albumin/Globulin Ratio 1.1 (1.0-2.7) EKG Diagnostic Results Rate: tachycardiac Rhythm: NSR ST Segments: no acute changes ASA given to the pt in ED: No Rhythm Strip Diag. Results EP Interpretation: yes Rhythm: NSR, no PVC's, no ectopy Chest X-Ray Diagnostic Results Chest X-Ray Diagnostic Results : Chest X-Ray Ordered: Yes # of Views/Limited/Complete: 1 View Indication: Shortness of Breath EP Interpretation: Yes Interpretation: no consolidation, no effusion, no pneumothorax, no acute cardiopulmonary disease Impression: No acute disease Electronically Signed by: Electronically signed by Luke Blackman MD Last Vital Signs Date Time Temp Pulse Resp B/P (MAP) Pulse Ox O2 Delivery O2 Flow Rate FiO2 12/31/17 03:17 103 26 99 Room Air 21 12/31/17 01:30 100.4 143/86 100.4 Status: improved Disposition: ADMITTED INPATIENT Condition: Serious Referrals: NOT CHOSEN FIDE/,REFERRING (PCP) LUKE BLACKMAN M.D. Dec 31, 2017 03:29
[2017-12-31] MEDS ORDERED: LORazepam Inj 2mg/ml 1ml IV ONE (03:45)
[2017-12-31 03:48] LABS: HEMATOCRIT 42.4 % (37.0-47.0); HEMOGLOBIN 14.4 G/DL (12.0-16.0); MEAN CORPUSCULAR VOLUME 94 FL (80-99); PLATELET COUNT 292 K/UL (150-450); RED BLOOD COUNT 4.51 M/UL (4.20-5.40); RED CELL DISTRIBUTION WIDTH 13.6 % (11.6-14.8); WHITE BLOOD COUNT 6.7 K/UL (4.8-10.8)
[2017-12-31 03:56] LABS: ANION GAP 14 mmol/L (5-15); BLOOD UREA NITROGEN 11 mg/dL (7-18); CALCIUM 9.6 MG/DL (8.5-10.1); CARBON DIOXIDE 23 MMOL/L (21-32); CHLORIDE 103 MMOL/L (98-107); CREATININE 0.9 MG/DL (0.55-1.30); POTASSIUM 3.7 MMOL/L (3.5-5.1); SODIUM 140 MMOL/L (136-145)
[2017-12-31 04:10] LABS: ALANINE AMINOTRANSFERASE 29 U/L (12-78); ALBUMIN 4.1 G/DL (3.4-5.0); ALBUMIN/GLOBULIN RATIO 1.1 (1.0-2.7); ALKALINE PHOSPHATASE 64 U/L (46-116); ASPARTATE AMINO TRANSFERASE 26 U/L (15-37); BILIRUBIN,TOTAL 0.2 MG/DL (0.2-1.0); CKMB 3.2 NG/ML (0.0-3.6); CREATINE KINASE 409 U/L (26-308)
[2017-12-31] MEDS ORDERED: Oseltamivir 75mg cap ORAL ONE (04:30)
[2017-12-31] MEDS ORDERED: NS 1000ml 2,600 ML IVLG ONE (05:00)
[2017-12-31] MEDS ORDERED: Albuterol/Ipratropium 3ml neb INH PRN ×2 (07:30→12:30)
[2017-12-31] MEDS ORDERED: Zolpidem 5mg tab ORAL PRN (07:30)
[2017-12-31] MEDS ORDERED: Advair 250/50 Inhaler - 14 dose INH SCH (09:00)
[2017-12-31] MEDS ORDERED: NS w/KCl 20mEq 1,000 ML IV SCH (09:00)
[2017-12-31] MEDS ORDERED: Thiamine 100mg tab ORAL SCH (10:00)
[2017-12-31] MEDS ORDERED: Oseltamivir 75mg cap ORAL SCH (10:00)
--- NOTE | 2017-12-31 10:05 | Diagnostic Imaging Report ---
Indication: Shortness of breath Technique: XRAY Chest 1v Comparison: 10/29/2017 Findings: Cardiomediastinal silhouette is stable. There is no consolidation or pleural effusion. Osseous structures are stable. Impression: No acute cardiopulmonary disease.
--- NOTE | 2017-12-31 10:54 | Consultation ---
History of Present Illness General Date patient seen: Dec 31, 2017 Chief Complaint: Dyspnea/Respdistress Present Illness HPI 32-year-old female who presents ED for evaluation of shortness of breath. States she's been having flulike symptoms for the last 2 days. Cough and wheezing. History of asthma. Given breathing treatment by EMS. Denies fevers or chills. Denies chest pain. Denies sick contacts or recent travel. Pt was diagnosed to have flu a and admitted for further treatment. Allergies: Coded Allergies: No Known Allergies (Unverified , 10/28/17) Pt. stated she is not allergic to any medication / food Medication History Scheduled Albuterol Sulfate* (Proair Hfa*), 1 PUFF INH Q6H Amlodipine Besylate* (Amlodipine Besylate*), 5 MG ORAL DAILY Fluticasone/Salmeterol (Advair 250-50 Diskus), 1 PUFF INH EVERY 12 HOURS Gabapentin* (Gabapentin*), 600 PO TID, (Reported) Levofloxacin* (Levaquin*), 500 MG ORAL DAILY Methylprednisolone* (Medrol*), 4 MG ORAL DAILY Scheduled PRN Ipratropium/Albuterol Sulfate (Iprat-Albut 0.5-3(2.5) Mg/3 Ml), 3 ML IH TID PRN Patient History Healthcare decision maker Resuscitation status Advanced Directive on File Past Medical/Surgical History Past Medical/Surgical History: (1) ETOH abuse (2) HTN (hypertension) (3) Nicotine addiction Review of Systems Respiratory: Reports: shortness of breath Cardiovascular: Reports: no symptoms Gastrointestinal: Reports: no symptoms Genitourinary: Reports: no symptoms Physical Exam General Appearance: WD/WN Lines, tubes and drains: peripheral HEENT: normocephalic, atraumatic Neck: non-tender, normal alignment Respiratory/Chest: chest wall non-tender, lungs clear Abdomen: normal bowel sounds Last 24 Hour Vital Signs Date Time Temp Pulse Resp B/P (MAP) Pulse Ox O2 Delivery O2 Flow Rate FiO2 12/31/17 10:31 91 24 98 Room Air 21 12/31/17 10:04 97 132/73 12/31/17 08:15 98.9 97 28 132/73 100 Room Air 21 98.9 12/31/17 06:30 98.9 97 28 132/73 100 Room Air 21 98.9 12/31/17 05:30 98.8 96 30 145/84 98 Room Air 98.8 12/31/17 04:30 98.8 99 32 126/61 97 Room Air 98.8 12/31/17 03:17 103 26 99 Room Air 21 12/31/17 03:07 103 26 99 Room Air 21 12/31/17 03:02 21 12/31/17 03:02 99 23 100 Room Air 21 12/31/17 02:30 100.1 92 26 136/73 99 Room Air 100.1 12/31/17 01:53 102 23 100 Room Air 21 12/31/17 01:53 21 12/31/17 01:51 111 19 99 Room Air 21 12/31/17 01:39 21 12/31/17 01:39 111 19 99 Room Air 21 12/31/17 01:38 111 19 Room Air 21 12/31/17 01:30 100.4 98 19 143/86 99 Room Air 100.4 12/31/17 01:30 98 19 Room Air 12/31/17 01:18 100.4 111 19 143/86 99 Room Air 100.4 Intake and Output 12/30/17 12/31/17 19:00 07:00 Intake Total 700 ml Balance 700 ml Intake IV Total 700 ml # Voids 1 Laboratory Tests Test 12/31/17 01:30 12/31/17 05:30 White Blood Count 6.7 K/UL (4.8-10.8) Red Blood Count 4.51 M/UL (4.20-5.40) Hemoglobin 14.4 G/DL (12.0-16.0) Hematocrit 42.4 % (37.0-47.0) Mean Corpuscular Volume 94 FL (80-99) Mean Corpuscular Hemoglobin 32.0 PG (27.0-31.0) H Mean Corpuscular Hemoglobin Concent 34.0 G/DL (32.0-36.0) Red Cell Distribution Width 13.6 % (11.6-14.8) Platelet Count 292 K/UL (150-450) Mean Platelet Volume 6.2 FL (6.5-10.1) L Neutrophils (%) (Auto) % (45.0-75.0) Lymphocytes (%) (Auto) % (20.0-45.0) Monocytes (%) (Auto) % (1.0-10.0) Eosinophils (%) (Auto) % (0.0-3.0) Basophils (%) (Auto) % (0.0-2.0) Differential Total Cells Counted 100 Neutrophils % (Manual) 91 % (45-75) H Lymphocytes % (Manual) 7 % (20-45) L Monocytes % (Manual) 2 % (1-10) Eosinophils % (Manual) 0 % (0-3) Basophils % (Manual) 0 % (0-2) Band Neutrophils 0 % (0-8) Platelet Estimate Adequate Platelet Morphology Normal Red Blood Cell Morphology Normal Sodium Level 140 MMOL/L (136-145) Potassium Level 3.7 MMOL/L (3.5-5.1) Chloride Level 103 MMOL/L (98-107) Carbon Dioxide Level 23 MMOL/L (21-32) Anion Gap 14 mmol/L (5-15) Blood Urea Nitrogen 11 mg/dL (7-18) Creatinine 0.9 MG/DL (0.55-1.30) Estimat Glomerular Filtration Rate > 60 mL/min (>60) Glucose Level 135 MG/DL (74-106) H Lactic Acid Level 5.10 mmol/L (0.66-2.22) H 4.40 mmol/L (0.66-2.22) H Calcium Level 9.6 MG/DL (8.5-10.1) Total Bilirubin 0.2 MG/DL (0.2-1.0) Aspartate Amino Transf (AST/SGOT) 26 U/L (15-37) Alanine Aminotransferase (ALT/SGPT) 29 U/L (12-78) Alkaline Phosphatase 64 U/L (46-116) Total Creatine Kinase 409 U/L (26-308) H Creatine Kinase MB 3.2 NG/ML (0.0-3.6) Creatine Kinase MB Relative Index 0.7 Troponin I 0.000 ng/mL (0.000-0.056) Pro-B-Type Natriuretic Peptide 67 pg/mL (0-125) Total Protein 7.9 G/DL (6.4-8.2) Albumin 4.1 G/DL (3.4-5.0) Globulin 3.8 g/dL Albumin/Globulin Ratio 1.1 (1.0-2.7) Microbiology Date/Time Source Procedure Growth Status 12/31/17 01:30 Nasal Nares Influenza Types A,B Antigen (VAZQUEZ) - Final Complete Height (Feet): 5 Height (Inches): 5.00 Weight (Pounds): 190 Medications Current Medications Medications (Trade) Dose Ordered Sig/Reddy Route PRN Reason Start Time Stop Time Status Last Admin Dose Admin Acetaminophen (Tylenol) 650 mg Q4H PRN ORAL Mild Pain (Pain Scale 1-3) 12/31/17 07:30 01/30/18 07:29 Acetaminophen (Tylenol) 650 mg Q4H PRN ORAL fever 12/31/17 07:30 01/30/18 07:29 Albuterol/ Ipratropium (Albuterol/ Ipratropium) 3 ml Q4H PRN INH Shortness of Breath 12/31/17 07:30 01/05/18 07:29 Albuterol/ Ipratropium (Albuterol/ Ipratropium) 3 ml Q6HRT HHN 12/31/17 13:00 01/05/18 12:59 Amlodipine Besylate (Norvasc) 5 mg DAILY ORAL 12/31/17 09:00 01/30/18 08:59 12/31/17 10:04 Dextrose (Dextrose 50%) STAT PRN IV Hypoglycemia 12/31/17 07:30 01/30/18 07:29 Diazepam (Valium) 10 mg Q4H PRN ORAL For Anxiety 12/31/17 09:45 01/07/18 09:44 12/31/17 10:03 Folic Acid (Folate) 1 mg DAILY ORAL 12/31/17 10:00 01/30/18 09:59 12/31/17 10:04 Gabapentin (Neurontin) 600 mg TID ORAL 12/31/17 09:00 01/30/18 08:59 12/31/17 10:03 Heparin Sodium (Porcine) (Heparin 5000 units/ml) 5,000 units EVERY 8 HOURS SUBQ 12/31/17 14:00 01/30/18 13:59 Insulin Aspart (NovoLOG) BEFORE MEALS AND HS SUBQ 12/31/17 11:30 01/30/18 11:29 Levofloxacin 100 ml @ 100 mls/hr Q24H IVPB 01/01/18 06:00 01/08/18 05:59 Methylprednisolone Sodium Succinate (Solu-MEDROL) 80 mg EVERY 8 HOURS IV 12/31/17 14:00 01/30/18 13:59 Ondansetron HCl (Zofran) 4 mg Q6H PRN IVP Nausea & Vomiting 12/31/17 07:30 01/30/18 07:29 Oseltamivir Phosphate (Tamiflu) 75 mg TWICE A DAY ORAL 12/31/17 10:00 01/04/18 09:01 12/31/17 10:03 Pantoprazole (Protonix) 40 mg DAILY ORAL 12/31/17 09:00 01/30/18 08:59 12/31/17 10:03 Salmeterol Xinafoate/ Fluticasone (Advair 250/50 Diskus) 1 puffs EVERY 12 HOURS INH 12/31/17 09:00 01/30/18 08:59 12/31/17 10:31 Sodium Chloride 1,000 ml @ 75 mls/hr [id number] IV 12/31/17 09:00 01/30/18 08:59 12/31/17 10:44 Thiamine HCl (Vitamin B1) 100 mg DAILY ORAL 12/31/17 10:00 01/30/18 09:59 12/31/17 10:03 Zolpidem Tartrate (Ambien) 5 mg HSPRN PRN ORAL Insomnia 12/31/17 07:30 01/07/18 07:29 Assessment/Plan Problem List: (1) Influenza B ICD Codes: J10.1 - Influenza due to other identified influenza virus with other respiratory manifestations SNOMED: 85410470 (2) COPD with acute exacerbation ICD Codes: J44.1 - Chronic obstructive pulmonary disease with (acute) exacerbation SNOMED: 582600017 (3) ETOH abuse ICD Codes: F10.10 - Alcohol abuse, uncomplicated SNOMED: 48971471 Assessment/Plan tamiflu iv steroids iv abx check cultures librium and atADEOLA Malone Dec 31, 2017 10:54
[2017-12-31] MEDS ORDERED: NovoLOG Insulin Flexpen SUBQ SCH (11:30)
[2017-12-31] MEDS: Albuterol/Ipratropium 3ml neb HHN SCH ×4 (13:00→20:36)
[2017-12-31] MEDS ORDERED: Albuterol/Ipratropium 3ml neb HHN SCH (13:00)
[2017-12-31] MEDS ORDERED: Heparin 5000 units/ml inj SUBQ SCH (14:00)
[2017-12-31] MEDS ORDERED: Solu-MEDROL 125mg Inj IV SCH (14:00)
[2017-12-31] MEDS: Solu-MEDROL 125mg Inj IV SCH ×2 (15:11→20:51)
[2017-12-31] MEDS: Heparin 5000 units/ml inj SUBQ SCH ×2 (15:13→20:52)
--- NOTE | 2017-12-31 16:08 | Cardiology Report ---
APPROVED REPORT EKG Measurement Heart [id number] [id number] Sinus tachycardia Nonspecific ST and T wave abnormality Abnormal ECG
--- NOTE | 2017-12-31 16:53 | History & Physical ---
History and Physical History & Physicial Dictated for Int Med-Dr Munguia [id number] MOLINA MARIE Dec 31, 2017 16:53
[2017-12-31] MEDS: NovoLOG Insulin Flexpen SUBQ SCH ×2 (17:00→20:51)
[2017-12-31] MEDS: Oseltamivir 75mg cap ORAL SCH (18:38)
[2017-12-31] MEDS ORDERED: Folic Acid 1 MG, Magnesium Sulfate 2,000 MG, Multivitamin - 12 Injection 10 ML in NS w/... IV SCH (22:00)
[2017-12-31] MEDS: Advair 250/50 Inhaler - 14 dose INH SCH (22:09)
[2017-12-31] MEDS: Zolpidem 5mg tab ORAL PRN (22:13)
[2017-12-31] MEDS: Folic Acid 1 MG, Magnesium Sulfate 2,000 MG, Multivitamin - 12 Injection 10 ML in NS w/... IV SCH (22:13)
[2018-01-01] MEDS: Albuterol/Ipratropium 3ml neb HHN SCH ×5 (01:09→23:59)
--- NOTE | 2018-01-01 01:45 | History and Physical Report ---
DATE OF ADMISSION: 12/31/2017 CHIEF COMPLAINT: The patient is a 52-year-old female, who presents with chief complaint of cough and fever. HISTORY OF PRESENT ILLNESS: The patient was admitted to [facility] in October 2017 for upper respiratory tract infection. Please see history and physical and discharge summary dictated at that time. The patient states her children have been sick at home. The patient's has also been sick. The patient states history of present illness began approximately four days ago. The patient began to have cough productive of a greenish sputum. The patient also was running fevers. The patient presented to [place] emergency room. The patient was admitted for cough and fever to rule out pneumonia. PAST MEDICAL HISTORY: Significant for: 1. Asthma. 2. Hypertension. 3. Osteoarthritis of bilateral knees. PAST SURGICAL HISTORY: Significant for section x2. CURRENT MEDICATIONS: 1. Albuterol metered dose inhaler two puffs p.o. q.i.d. p.r.n. 2. Amlodipine 5 mg p.o. daily. 3. Advair 250/50 mcg one puff p.o. twice daily. 4. Gabapentin 600 mg p.o. three times daily. ALLERGIES: To eggs. SOCIAL HISTORY: The patient is single and unemployed. The patient lives with her children and boyfriend. The patient admits to tobacco use one pack per day. The patient states she has been drinking a pint of gin daily for the past seven days. The patient denies other drug abuse. REVIEW OF SYSTEMS: CONSTITUTIONAL: The patient denies weight loss or weight gain. The patient complains of subjective fevers and chills as above. HEENT: The patient denies ear or throat pain. The patient denies headache. CARDIOVASCULAR: The patient denies palpitations or chest pain. CHEST: The patient complains of shortness of breath. The patient complains of cough as above. The patient denies wheezes. ABDOMEN: The patient denies nausea, vomiting, diarrhea, or constipation. GENITOURINARY: The patient denies dysuria or increased frequency of urination. NEUROMUSCULAR: The patient denies seizures or generalized weakness. PHYSICAL EXAMINATION: VITAL SIGNS: Temperature 98.9 degrees, respirations 28, pulse 97, and blood pressure 132/73. GENERAL: The patient is a well-developed and well-nourished female, in no apparent distress. HEENT: Eyes, pupils are equal and responsive to light and accommodation. Extraocular movements are intact. NECK: Supple without lymphadenopathy. CHEST: Lungs are clear to auscultation bilaterally with few scattered wheezes in the bilateral lower bases. ABDOMEN: Soft, nontender, and nondistended. Positive bowel sounds. No evidence of hepatosplenomegaly. Currently, no rebound or guarding noted. CARDIOVASCULAR: Regular rhythm and rate. S1 and S2 are normal without murmurs, rubs, or gallops. EXTREMITIES: Negative for clubbing, cyanosis, or edema. NEUROLOGIC: Cranial nerves II through XII are grossly intact without focal deficits. Motor strength is 5/5 bilaterally intact. Deep tendon reflexes are 2+ plantar. LABORATORY AND DIAGNOSTIC DATA: Laboratory studies, WBC 6.7, hemoglobin 14.4, hematocrit 42.4, and platelets 292,000. Sodium 140, potassium 3.7, chloride 103, CO2 23, BUN 11, creatinine 0.9, and glucose 135. Chest x-ray showed no acute disease. ASSESSMENT: This is a 52-year-old female with: 1. Cough. 2. Fever. 3. Probable alcohol withdrawal syndrome. 4. Hypertension. 5. Asthma. 6. Osteoarthritis of the knees. TREATMENT: 1. Cough/fever. Pulmonary consultation has been obtained with Dr. Christina. A chest x-ray was within normal limits. The patient has been started empirically on Levaquin. We will follow recommendations of Pulmonary. 2. Alcohol abuse/withdrawal. The patient will be offered Valium p.r.n. for tremors. 3. Hypertension. Continue amlodipine as above. 4. Asthma. Continue albuterol nebulizer q.4 h. p.r.n. 5. Osteoarthritis of the knees. Alpesh Roque M.D. DR: Marissa JOB#: [id number] CC:
[2018-01-01 03:32] VITALS: BP 146/80
[2018-01-01] MEDS: Heparin 5000 units/ml inj SUBQ SCH ×3 (06:00→21:21)
[2018-01-01] MEDS: Solu-MEDROL 125mg Inj IV SCH ×3 (06:00→21:19)
[2018-01-01] MEDS: NovoLOG Insulin Flexpen SUBQ SCH ×4 (06:01→21:20)
[2018-01-01 07:29] LABS: BASOPHILS % (AUTO) 1.5 % (0.0-2.0); HEMOGLOBIN 13.7 G/DL (12.0-16.0); LYMPHOCYTES % (AUTO) 20.3 % (20.0-45.0); MEAN CORPUSCULAR VOLUME 95 FL (80-99); MONOCYTES % (AUTO) 4.4 % (1.0-10.0); NEUTROPHILS % (AUTO) 73.8 % (45.0-75.0); PLATELET COUNT 270 K/UL (150-450); RED BLOOD COUNT 4.22 M/UL (4.20-5.40); RED CELL DISTRIBUTION WIDTH 13.3 % (11.6-14.8)
[2018-01-01 07:49] LABS: INR 0.9 (0.9-1.1)
[2018-01-01 07:50] LABS: ALANINE AMINOTRANSFERASE 26 U/L (12-78); ALBUMIN 3.5 G/DL (3.4-5.0); ALKALINE PHOSPHATASE 54 U/L (46-116); ANION GAP 9 mmol/L (5-15); ASPARTATE AMINO TRANSFERASE 19 U/L (15-37); BILIRUBIN,TOTAL 0.2 MG/DL (0.2-1.0); BLOOD UREA NITROGEN 16 mg/dL (7-18); CALCIUM 9.2 MG/DL (8.5-10.1); CARBON DIOXIDE 27 MMOL/L (21-32); CHLORIDE 103 MMOL/L (98-107); CREATININE 0.8 MG/DL (0.55-1.30); PHOSPHORUS 3.7 MG/DL (2.5-4.9); POTASSIUM 3.8 MMOL/L (3.5-5.1); SODIUM 139 MMOL/L (136-145)
[2018-01-01 08:00] VITALS: BP 151/89
[2018-01-01] MEDS: Thiamine 100mg tab ORAL SCH (08:16)
[2018-01-01] MEDS: Oseltamivir 75mg cap ORAL SCH ×2 (08:17→17:54)
[2018-01-01] MEDS: Advair 250/50 Inhaler - 14 dose INH SCH ×2 (10:00→20:55)
[2018-01-01 12:00] VITALS: BP 123/72
[2018-01-01 16:00] VITALS: BP 145/86
[2018-01-01] MEDS ORDERED: Promethazine/Codeine 5ml UD ORAL PRN (16:30)
--- NOTE | 2018-01-01 17:18 | Consultation ---
History of Present Illness General Date patient seen: Jan 01, 2018 Chief Complaint: Dyspnea/Respdistress Present Illness HPI 52 y/o F with hx of HTN, asthma, OA of b/l knees presents to ED On 12/31 with SOB , flu like symptoms, cough, wheezing for 4 days. Her children have been sick at home. +subjective fevers Denies , cp, recent travel. Patient foudn to be influenza B Of note, is also admitted with the Flu Tm 100.4, now afebrile in 36hrs. No leukocytosis. CXR normal Allergies: Coded Allergies: No Known Allergies (Unverified , 10/28/17) Pt. stated she is not allergic to any medication / food Medication History Scheduled Albuterol Sulfate* (Proair Hfa*), 1 PUFF INH Q6H Amlodipine Besylate* (Amlodipine Besylate*), 5 MG ORAL DAILY Fluticasone/Salmeterol (Advair 250-50 Diskus), 1 PUFF INH EVERY 12 HOURS Gabapentin* (Gabapentin*), 600 PO TID, (Reported) Levofloxacin* (Levaquin*), 500 MG ORAL DAILY Methylprednisolone* (Medrol*), 4 MG ORAL DAILY Scheduled PRN Ipratropium/Albuterol Sulfate (Iprat-Albut 0.5-3(2.5) Mg/3 Ml), 3 ML IH TID PRN Patient History Healthcare decision maker Resuscitation status Full Code Advanced Directive on File Patient History Narrative Pmhx: as above Shx: The patient is single and unemployed. The patient lives with her children and boyfriend. The patient admits to tobacco use one pack per day. The patient states she has been drinking a pint of gin daily for the past seven days. The patient denies other drug abuse. Fhx: non contributory Review of Systems All Other Systems: negative except mentioned in HPI Physical Exam Physical Exam Narrative GENERAL: The patient is a well-developed and well-nourished female, in no apparent distress. HEENT: Eyes, pupils are equal and responsive to light and accommodation. Extraocular movements are intact. NECK: Supple without lymphadenopathy. CHEST: Lungs are clear to auscultation bilaterally with few scattered wheezes in the bilateral lower bases. ABDOMEN: Soft, nontender, and nondistended. Positive bowel sounds. No evidence of hepatosplenomegaly. Currently, no rebound or guarding noted. CARDIOVASCULAR: Regular rhythm and rate. S1 and S2 are normal without murmurs, rubs, or gallops. EXTREMITIES: Negative for clubbing, cyanosis, or edema. NEUROLOGIC: Cranial nerves II through XII are grossly intact without focal deficits. Motor strength is 5/5 bilaterally intact. Deep tendon reflexes are 2+ plantar. Last 24 Hour Vital Signs Date Time Temp Pulse Resp B/P (MAP) Pulse Ox O2 Delivery O2 Flow Rate FiO2 01/01/18 16:31 72 22 97 Room Air 21 01/01/18 16:20 69 24 97 Room Air 21 01/01/18 12:00 97.9 112 19 123/72 97 97.9 01/01/18 11:54 74 18 97 Room Air 21 01/01/18 11:48 21 01/01/18 11:48 77 18 98 Room Air 21 01/01/18 10:21 Room Air 21 01/01/18 10:20 75 18 98 Room Air 21 01/01/18 08:17 70 151/89 01/01/18 08:00 97.7 60 19 151/89 99 97.7 01/01/18 07:34 Room Air 21 01/01/18 07:32 Room Air 21 01/01/18 03:32 98.6 76 16 146/80 96 Room Air 98.6 01/01/18 01:18 75 18 97 Room Air 21 01/01/18 01:08 75 18 97 Room Air 21 01/01/18 01:08 21 12/31/17 22:10 71 18 97 Room Air 21 12/31/17 22:04 71 18 97 Room Air 21 12/31/17 20:05 72 18 97 Room Air 21 12/31/17 20:02 98.2 72 18 158/77 97 Room Air 98.2 12/31/17 19:55 21 12/31/17 19:55 88 20 97 Room Air 21 12/31/17 19:46 91 20 95 Room Air 21 Intake and Output 12/31/17 01/01/18 19:00 07:00 Intake Total 315 ml 1050 ml Balance 315 ml 1050 ml Intake Oral 240 ml 400 ml IV Total 75 ml 650 ml # Voids 3 3 Laboratory Tests Test 01/01/18 05:15 White Blood Count 5.0 K/UL (4.8-10.8) Red Blood Count 4.22 M/UL (4.20-5.40) Hemoglobin 13.7 G/DL (12.0-16.0) Hematocrit 40.0 % (37.0-47.0) Mean Corpuscular Volume 95 FL (80-99) Mean Corpuscular Hemoglobin 32.5 PG (27.0-31.0) H Mean Corpuscular Hemoglobin Concent 34.3 G/DL (32.0-36.0) Red Cell Distribution Width 13.3 % (11.6-14.8) Platelet Count 270 K/UL (150-450) Mean Platelet Volume 6.5 FL (6.5-10.1) Neutrophils (%) (Auto) 73.8 % (45.0-75.0) Lymphocytes (%) (Auto) 20.3 % (20.0-45.0) Monocytes (%) (Auto) 4.4 % (1.0-10.0) Eosinophils (%) (Auto) 0.0 % (0.0-3.0) Basophils (%) (Auto) 1.5 % (0.0-2.0) Prothrombin Time 9.5 SEC (9.30-11.50) Prothromb Time International Ratio 0.9 (0.9-1.1) Activated Partial Thromboplast Time 25 SEC (23-33) Sodium Level 139 MMOL/L (136-145) Potassium Level 3.8 MMOL/L (3.5-5.1) Chloride Level 103 MMOL/L (98-107) Carbon Dioxide Level 27 MMOL/L (21-32) Anion Gap 9 mmol/L (5-15) Blood Urea Nitrogen 16 mg/dL (7-18) Creatinine 0.8 MG/DL (0.55-1.30) Estimat Glomerular Filtration Rate > 60 mL/min (>60) Glucose Level 155 MG/DL (74-106) H Lactic Acid Level 1.50 mmol/L (0.66-2.22) Calcium Level 9.2 MG/DL (8.5-10.1) Phosphorus Level 3.7 MG/DL (2.5-4.9) Magnesium Level 2.1 MG/DL (1.8-2.4) Total Bilirubin 0.2 MG/DL (0.2-1.0) Aspartate Amino Transf (AST/SGOT) 19 U/L (15-37) Alanine Aminotransferase (ALT/SGPT) 26 U/L (12-78) Alkaline Phosphatase 54 U/L (46-116) Total Protein 7.1 G/DL (6.4-8.2) Albumin 3.5 G/DL (3.4-5.0) Globulin 3.6 g/dL Albumin/Globulin Ratio 1.0 (1.0-2.7) Height (Feet): 5 Height (Inches): 5.00 Weight (Pounds): 185 Medications Current Medications Medications (Trade) Dose Ordered Sig/Reddy Route PRN Reason Start Time Stop Time Status Last Admin Dose Admin Acetaminophen (Tylenol) 650 mg Q4H PRN ORAL Mild Pain (Pain Scale 1-3) 12/31/17 12:30 01/30/18 12:29 Acetaminophen (Tylenol) 650 mg Q4H PRN ORAL fever 12/31/17 12:30 01/30/18 12:29 Albuterol/ Ipratropium (Albuterol/ Ipratropium) 3 ml Q4H PRN INH Shortness of Breath 12/31/17 12:30 01/05/18 12:29 01/01/18 16:20 Albuterol/ Ipratropium (Albuterol/ Ipratropium) 3 ml Q6HRT HHN 12/31/17 13:00 01/05/18 12:59 01/01/18 11:47 Amlodipine Besylate (Norvasc) 5 mg DAILY ORAL 01/01/18 09:00 01/30/18 08:59 01/01/18 08:17 Clonidine HCl (Catapres Tab) 0.1 mg Q6H PRN ORAL SBP is above 160 01/01/18 16:15 01/31/18 16:14 Dextrose (Dextrose 50%) STAT PRN IV Hypoglycemia 12/31/17 12:30 01/30/18 12:29 Diazepam (Valium) 10 mg Q4H PRN ORAL For Anxiety 12/31/17 12:30 01/07/18 12:29 01/01/18 08:17 Folic Acid 1 mg/ Magnesium Sulfate 2000 mg/ Multivitamins 10 ml/Sodium Chloride 1,014.2 ml @ 125 mls/ hr Q24H IV 12/31/17 22:00 01/30/18 21:59 12/31/17 22:13 Gabapentin (Neurontin) 600 mg TID ORAL 12/31/17 13:00 01/30/18 08:59 01/01/18 14:17 Heparin Sodium (Porcine) (Heparin 5000 units/ml) 5,000 units EVERY 8 HOURS SUBQ 12/31/17 14:00 01/30/18 13:59 01/01/18 14:18 Insulin Aspart (NovoLOG) BEFORE MEALS AND HS SUBQ 12/31/17 16:30 01/30/18 11:29 01/01/18 16:41 Levofloxacin 100 ml @ 100 mls/hr Q24H IVPB 01/01/18 06:00 01/08/18 05:59 01/01/18 06:14 Methylprednisolone Sodium Succinate (Solu-MEDROL) 80 mg EVERY 8 HOURS IV 12/31/17 14:00 01/30/18 13:59 01/01/18 14:17 Ondansetron HCl (Zofran) 4 mg Q6H PRN IVP Nausea & Vomiting 12/31/17 12:30 01/30/18 12:29 Oseltamivir Phosphate (Tamiflu) 75 mg TWICE A DAY ORAL 12/31/17 18:00 01/04/18 09:01 01/01/18 08:17 Pantoprazole (Protonix) 40 mg DAILY ORAL 01/01/18 09:00 01/30/18 08:59 01/01/18 08:16 Promethazine HCl/ Codeine (Phenergan with Codeine) 5 ml Q6H PRN ORAL For Cough 01/01/18 16:30 01/31/18 16:29 01/01/18 16:52 Salmeterol Xinafoate/ Fluticasone (Advair 250/50 Diskus) 1 puffs Q12HRT INH 12/31/17 22:00 01/30/18 21:59 12/31/17 22:09 Thiamine HCl (Vitamin B1) 100 mg DAILY ORAL 01/01/18 09:00 01/30/18 09:59 01/01/18 08:16 Zolpidem Tartrate (Ambien) 5 mg HSPRN PRN ORAL Insomnia 12/31/17 12:30 01/07/18 12:29 12/31/17 22:13 Assessment/Plan Assessment/Plan Abx: tamiflu 12/31- Levofloxacin 12/31- Assessment: VIral URI./bronchitis 2ry to Influenza B -CXR: no acute process low grade fever, improving -no leukocytosis HTN asthma OA of b/l knees Plan: -Continue Tamiflu #2/5 -d/c Levaquin #2 -f/u cx -montior cbc/BMP, temperatures -resp support -droplets precautions Thank you for this consultation. Will continue to follow along with you. Discussed with Mildred Griggs M.D. Jan 01, 2018 17:18
--- NOTE | 2018-01-01 17:44 | Pulmonology Progress Note ---
Assessment/Plan Problems: (1) Influenza B (2) COPD with acute exacerbation (3) ETOH abuse Assessment/Plan continue Tamiflu ID evaluaton check cultures symptomatic treatment Subjective ROS Limited/Unobtainable: No Constitutional: Reports: no symptoms HEENT: Repors: no symptoms Allergies: Coded Allergies: No Known Allergies (Unverified , 10/28/17) Pt. stated she is not allergic to any medication / food Objective Last 24 Hour Vital Signs Date Time Temp Pulse Resp B/P (MAP) Pulse Ox O2 Delivery O2 Flow Rate FiO2 01/01/18 16:31 72 22 97 Room Air 21 01/01/18 16:20 69 24 97 Room Air 21 01/01/18 16:00 96.8 78 19 145/86 99 96.8 01/01/18 12:00 97.9 112 19 123/72 97 97.9 01/01/18 11:54 74 18 97 Room Air 21 01/01/18 11:48 21 01/01/18 11:48 77 18 98 Room Air 21 01/01/18 10:21 Room Air 21 01/01/18 10:20 75 18 98 Room Air 21 01/01/18 08:17 70 151/89 01/01/18 08:00 97.7 60 19 151/89 99 97.7 01/01/18 07:34 Room Air 21 01/01/18 07:32 Room Air 21 01/01/18 03:32 98.6 76 16 146/80 96 Room Air 98.6 01/01/18 01:18 75 18 97 Room Air 21 01/01/18 01:08 75 18 97 Room Air 21 01/01/18 01:08 21 12/31/17 22:10 71 18 97 Room Air 21 12/31/17 22:04 71 18 97 Room Air 21 12/31/17 20:05 72 18 97 Room Air 21 12/31/17 20:02 98.2 72 18 158/77 97 Room Air 98.2 12/31/17 19:55 21 12/31/17 19:55 88 20 97 Room Air 21 12/31/17 19:46 91 20 95 Room Air 21 Intake and Output 12/31/17 01/01/18 19:00 07:00 Intake Total 315 ml 1050 ml Balance 315 ml 1050 ml Intake Oral 240 ml 400 ml IV Total 75 ml 650 ml # Voids 3 3 Objective HEENT: atraumatic Neck: full ROM Heart: HR/BP stable Lungs: +rhonchi Abdomen: soft, active bowel sounds, feeding tube Extremities: no edema Microbiology Date/Time Source Procedure Growth Status 12/31/17 01:30 Nasal Nares Influenza Types A,B Antigen (VAZQUEZ) - Final Complete Laboratory Tests 01/01/18 05:15: White Blood Count 5.0, Red Blood Count 4.22, Hemoglobin 13.7, Hematocrit 40.0, Mean Corpuscular Volume 95, Mean Corpuscular Hemoglobin 32.5H, Mean Corpuscular Hemoglobin Concent 34.3, Red Cell Distribution Width 13.3, Platelet Count 270, Mean Platelet Volume 6.5, Neutrophils (%) (Auto) 73.8, Lymphocytes (%) (Auto) 20.3, Monocytes (%) (Auto) 4.4, Eosinophils (%) (Auto) 0.0, Basophils (%) (Auto ) 1.5, Prothrombin Time 9.5, Prothromb Time International Ratio 0.9, Activated Partial Thromboplast Time 25, Sodium Level 139, Potassium Level 3.8, Chloride Level 103, Carbon Dioxide Level 27, Anion Gap 9, Blood Urea Nitrogen 16, Creatinine 0.8, Estimat Glomerular Filtration Rate > 60, Glucose Level 155H, Lactic Acid Level 1.50, Calcium Level 9.2, Phosphorus Level 3.7, Magnesium Level 2.1, Total Bilirubin 0.2, Aspartate Amino Transf (AST/SGOT) 19, Alanine Aminotransferase (ALT/SGPT) 26, Alkaline Phosphatase 54, Total Protein 7.1, Albumin 3.5, Globulin 3.6, Albumin/Globulin Ratio 1.0 Current Medications Medications (Trade) Dose Ordered Sig/Reddy Route PRN Reason Start Time Stop Time Status Last Admin Dose Admin Acetaminophen (Tylenol) 650 mg Q4H PRN ORAL Mild Pain (Pain Scale 1-3) 12/31/17 12:30 01/30/18 12:29 Acetaminophen (Tylenol) 650 mg Q4H PRN ORAL fever 12/31/17 12:30 01/30/18 12:29 Albuterol/ Ipratropium (Albuterol/ Ipratropium) 3 ml Q4H PRN INH Shortness of Breath 12/31/17 12:30 01/05/18 12:29 01/01/18 16:20 Albuterol/ Ipratropium (Albuterol/ Ipratropium) 3 ml Q6HRT HHN 12/31/17 13:00 01/05/18 12:59 01/01/18 11:47 Amlodipine Besylate (Norvasc) 5 mg DAILY ORAL 01/01/18 09:00 01/30/18 08:59 01/01/18 08:17 Clonidine HCl (Catapres Tab) 0.1 mg Q6H PRN ORAL SBP is above 160 01/01/18 16:15 01/31/18 16:14 Dextrose (Dextrose 50%) STAT PRN IV Hypoglycemia 12/31/17 12:30 01/30/18 12:29 Diazepam (Valium) 10 mg Q4H PRN ORAL For Anxiety 12/31/17 12:30 01/07/18 12:29 01/01/18 08:17 Folic Acid 1 mg/ Magnesium Sulfate 2000 mg/ Multivitamins 10 ml/Sodium Chloride 1,014.2 ml @ 125 mls/ hr Q24H IV 12/31/17 22:00 01/30/18 21:59 12/31/17 22:13 Gabapentin (Neurontin) 600 mg TID ORAL 12/31/17 13:00 01/30/18 08:59 01/01/18 14:17 Heparin Sodium (Porcine) (Heparin 5000 units/ml) 5,000 units EVERY 8 HOURS SUBQ 12/31/17 14:00 01/30/18 13:59 01/01/18 14:18 Insulin Aspart (NovoLOG) BEFORE MEALS AND HS SUBQ 12/31/17 16:30 01/30/18 11:29 01/01/18 16:41 Methylprednisolone Sodium Succinate (Solu-MEDROL) 80 mg EVERY 8 HOURS IV 12/31/17 14:00 01/30/18 13:59 01/01/18 14:17 Ondansetron HCl (Zofran) 4 mg Q6H PRN IVP Nausea & Vomiting 12/31/17 12:30 01/30/18 12:29 Oseltamivir Phosphate (Tamiflu) 75 mg TWICE A DAY ORAL 12/31/17 18:00 01/04/18 09:01 01/01/18 08:17 Pantoprazole (Protonix) 40 mg DAILY ORAL 01/01/18 09:00 01/30/18 08:59 01/01/18 08:16 Promethazine HCl/ Codeine (Phenergan with Codeine) 5 ml Q6H PRN ORAL For Cough 01/01/18 16:30 01/31/18 16:29 01/01/18 16:52 Salmeterol Xinafoate/ Fluticasone (Advair 250/50 Diskus) 1 puffs Q12HRT INH 12/31/17 22:00 01/30/18 21:59 12/31/17 22:09 Thiamine HCl (Vitamin B1) 100 mg DAILY ORAL 01/01/18 09:00 01/30/18 09:59 01/01/18 08:16 Zolpidem Tartrate (Ambien) 5 mg HSPRN PRN ORAL Insomnia 12/31/17 12:30 01/07/18 12:29 12/31/17 22:13 ADEOLA DODSON Jan 01, 2018 17:44
--- NOTE | 2018-01-01 19:25 | Internal Med Progress Note ---
Subjective Date of Service: Jan 01, 2018 Physician Name Molina Marie Attending Physician Mookie Munguia MD Current Medications Medications (Trade) Dose Ordered Sig/Reddy Route PRN Reason Start Time Stop Time Status Last Admin Dose Admin Acetaminophen (Tylenol) 650 mg Q4H PRN ORAL Mild Pain (Pain Scale 1-3) 12/31/17 12:30 01/30/18 12:29 Acetaminophen (Tylenol) 650 mg Q4H PRN ORAL fever 12/31/17 12:30 01/30/18 12:29 Albuterol/ Ipratropium (Albuterol/ Ipratropium) 3 ml Q4H PRN INH Shortness of Breath 12/31/17 12:30 01/05/18 12:29 01/01/18 16:20 Albuterol/ Ipratropium (Albuterol/ Ipratropium) 3 ml Q6HRT HHN 12/31/17 13:00 01/05/18 12:59 01/01/18 11:47 Amlodipine Besylate (Norvasc) 5 mg DAILY ORAL 01/01/18 09:00 01/30/18 08:59 01/01/18 08:17 Clonidine HCl (Catapres Tab) 0.1 mg Q6H PRN ORAL SBP is above 160 01/01/18 16:15 01/31/18 16:14 Dextrose (Dextrose 50%) STAT PRN IV Hypoglycemia 12/31/17 12:30 01/30/18 12:29 Diazepam (Valium) 10 mg Q4H PRN ORAL For Anxiety 12/31/17 12:30 01/07/18 12:29 01/01/18 08:17 Folic Acid 1 mg/ Magnesium Sulfate 2000 mg/ Multivitamins 10 ml/Sodium Chloride 1,014.2 ml @ 125 mls/ hr Q24H IV 12/31/17 22:00 01/30/18 21:59 12/31/17 22:13 Gabapentin (Neurontin) 600 mg TID ORAL 12/31/17 13:00 01/30/18 08:59 01/01/18 17:54 Heparin Sodium (Porcine) (Heparin 5000 units/ml) 5,000 units EVERY 8 HOURS SUBQ 12/31/17 14:00 01/30/18 13:59 01/01/18 14:18 Insulin Aspart (NovoLOG) BEFORE MEALS AND HS SUBQ 12/31/17 16:30 01/30/18 11:29 01/01/18 16:41 Methylprednisolone Sodium Succinate (Solu-MEDROL) 80 mg EVERY 8 HOURS IV 12/31/17 14:00 01/30/18 13:59 01/01/18 14:17 Ondansetron HCl (Zofran) 4 mg Q6H PRN IVP Nausea & Vomiting 12/31/17 12:30 01/30/18 12:29 Oseltamivir Phosphate (Tamiflu) 75 mg TWICE A DAY ORAL 12/31/17 18:00 01/04/18 09:01 01/01/18 17:54 Pantoprazole (Protonix) 40 mg DAILY ORAL 01/01/18 09:00 01/30/18 08:59 01/01/18 08:16 Promethazine HCl/ Codeine (Phenergan with Codeine) 5 ml Q6H PRN ORAL For Cough 01/01/18 16:30 01/31/18 16:29 01/01/18 16:52 Salmeterol Xinafoate/ Fluticasone (Advair 250/50 Diskus) 1 puffs Q12HRT INH 12/31/17 22:00 01/30/18 21:59 12/31/17 22:09 Thiamine HCl (Vitamin B1) 100 mg DAILY ORAL 01/01/18 09:00 01/30/18 09:59 01/01/18 08:16 Zolpidem Tartrate (Ambien) 5 mg HSPRN PRN ORAL Insomnia 12/31/17 12:30 01/07/18 12:29 12/31/17 22:13 Allergies: Coded Allergies: No Known Allergies (Unverified , 10/28/17) Pt. stated she is not allergic to any medication / food ROS Limited/Unobtainable: No Constitutional: Reports: chills, fever HEENT: Reports: no symptoms Cardiovascular: Reports: no symptoms Respiratory: Reports: shortness of breath Gastrointestinal/Abdominal: Reports: no symptoms Genitourinary: Reports: no symptoms Neurologic/Psychiatric: Reports: no symptoms Subjective 52 YO F admitted with cough and fever. Now Influenza B positive. Cover for Int Med-Dr Munguia. Objective Last Vital Signs Date Time Temp Pulse Resp B/P (MAP) Pulse Ox O2 Delivery O2 Flow Rate FiO2 01/01/18 16:31 72 22 97 Room Air 21 01/01/18 16:00 96.8 145/86 96.8 General Appearance: WD/WN, mild distress EENT: PERRL/EOMI, normal ENT inspection Neck: non-tender, normal alignment, supple Cardiovascular: normal peripheral pulses, normal rate, regular rhythm, no gallop/murmur, no JVD Respiratory/Chest: no accessory muscle use, respiratory distress, crackles/ rales, rhonchi - bilaterally, expiratory wheezing Abdomen: normal bowel sounds, non tender, soft, no organomegaly, no mass Extremities: normal range of motion, non-tender Neurologic: integration specialist II-XII grossly normal, no motor/sensory deficits Skin: normal pigmentation, warm/dry Laboratory Tests Test 01/01/18 05:15 White Blood Count 5.0 K/UL (4.8-10.8) Red Blood Count 4.22 M/UL (4.20-5.40) Hemoglobin 13.7 G/DL (12.0-16.0) Hematocrit 40.0 % (37.0-47.0) Mean Corpuscular Volume 95 FL (80-99) Mean Corpuscular Hemoglobin 32.5 PG (27.0-31.0) H Mean Corpuscular Hemoglobin Concent 34.3 G/DL (32.0-36.0) Red Cell Distribution Width 13.3 % (11.6-14.8) Platelet Count 270 K/UL (150-450) Mean Platelet Volume 6.5 FL (6.5-10.1) Neutrophils (%) (Auto) 73.8 % (45.0-75.0) Lymphocytes (%) (Auto) 20.3 % (20.0-45.0) Monocytes (%) (Auto) 4.4 % (1.0-10.0) Eosinophils (%) (Auto) 0.0 % (0.0-3.0) Basophils (%) (Auto) 1.5 % (0.0-2.0) Prothrombin Time 9.5 SEC (9.30-11.50) Prothromb Time International Ratio 0.9 (0.9-1.1) Activated Partial Thromboplast Time 25 SEC (23-33) Sodium Level 139 MMOL/L (136-145) Potassium Level 3.8 MMOL/L (3.5-5.1) Chloride Level 103 MMOL/L (98-107) Carbon Dioxide Level 27 MMOL/L (21-32) Anion Gap 9 mmol/L (5-15) Blood Urea Nitrogen 16 mg/dL (7-18) Creatinine 0.8 MG/DL (0.55-1.30) Estimat Glomerular Filtration Rate > 60 mL/min (>60) Glucose Level 155 MG/DL (74-106) H Lactic Acid Level 1.50 mmol/L (0.66-2.22) Calcium Level 9.2 MG/DL (8.5-10.1) Phosphorus Level 3.7 MG/DL (2.5-4.9) Magnesium Level 2.1 MG/DL (1.8-2.4) Total Bilirubin 0.2 MG/DL (0.2-1.0) Aspartate Amino Transf (AST/SGOT) 19 U/L (15-37) Alanine Aminotransferase (ALT/SGPT) 26 U/L (12-78) Alkaline Phosphatase 54 U/L (46-116) Total Protein 7.1 G/DL (6.4-8.2) Albumin 3.5 G/DL (3.4-5.0) Globulin 3.6 g/dL Albumin/Globulin Ratio 1.0 (1.0-2.7) Microbiology Date/Time Source Procedure Growth Status 12/31/17 01:30 Nasal Nares Influenza Types A,B Antigen (VAZQUEZ) - Final Complete Intake and Output 12/31/17 01/01/18 19:00 07:00 Intake Total 315 ml 1050 ml Balance 315 ml 1050 ml Intake Oral 240 ml 400 ml IV Total 75 ml 650 ml # Voids 3 3 Assessment/Plan Problem List: (1) Alcohol abuse Assessment & Plan: Continue prn valium (2) Alcohol withdrawal (3) Fever (4) Cough Assessment & Plan: Continue levaquin and tamiflu per ID (5) Influenza B Assessment & Plan: Continue tamiflu per ID (6) HTN (hypertension) Assessment & Plan: Continue norvasc. (7) Asthma Assessment & Plan: See pulmonary note. Status: not improved MOLINA MARIE Jan 01, 2018 19:25
[2018-01-01 19:40] VITALS: BP 136/76
[2018-01-01] MEDS: Folic Acid 1 MG, Magnesium Sulfate 2,000 MG, Multivitamin - 12 Injection 10 ML in NS w/... IV SCH (21:19)
[2018-01-01] MEDS: Zolpidem 5mg tab ORAL PRN (23:53)
--- NOTE | 2018-01-01 23:53 | Consultation ---
History of Present Illness General Date patient seen: Dec 31, 2017 Chief Complaint: Dyspnea/Respdistress Present Illness HPI 52-year-old female who presentswith cc shortness of breath. States she's been having flulike symptoms for the last 2 days. the pt has hx of depression and alcohol dependence has anxiety Allergies: Coded Allergies: No Known Allergies (Unverified , 10/28/17) Pt. stated she is not allergic to any medication / food Medication History Scheduled Albuterol Sulfate* (Proair Hfa*), 1 PUFF INH Q6H Amlodipine Besylate* (Amlodipine Besylate*), 5 MG ORAL DAILY Fluticasone/Salmeterol (Advair 250-50 Diskus), 1 PUFF INH EVERY 12 HOURS Gabapentin* (Gabapentin*), 600 PO TID, (Reported) Levofloxacin* (Levaquin*), 500 MG ORAL DAILY Methylprednisolone* (Medrol*), 4 MG ORAL DAILY Scheduled PRN Ipratropium/Albuterol Sulfate (Iprat-Albut 0.5-3(2.5) Mg/3 Ml), 3 ML IH TID PRN Patient History Limited by: medical condition History Provided By: Patient, PMD Healthcare decision maker Resuscitation status Full Code Advanced Directive on File Past Medical/Surgical History Past Medical/Surgical History: (1) Depression (2) Purulent bronchitis (3) Sepsis (4) Influenza B (5) COPD with acute exacerbation (6) SOB (shortness of breath) (7) Nicotine addiction (8) HTN (hypertension) (9) Fever (10) Cough (11) Alcohol withdrawal (12) Asthma Review of Systems Psychiatric: Reports: prior hx, anxiety, depressed feelings, emotional problems Physical Exam General Appearance: no apparent distress, alert Neurologic: alert, oriented x 3, responsive, depressed affect Last 24 Hour Vital Signs Date Time Temp Pulse Resp B/P (MAP) Pulse Ox O2 Delivery O2 Flow Rate FiO2 01/01/18 21:15 72 24 97 Room Air 21 01/01/18 20:57 Room Air 21 01/01/18 20:56 71 18 97 Room Air 21 01/01/18 20:56 Room Air 21 01/01/18 19:40 97.9 68 20 136/76 98 Room Air 97.9 01/01/18 16:31 72 22 97 Room Air 21 01/01/18 16:20 69 24 97 Room Air 21 01/01/18 16:00 96.8 78 19 145/86 99 96.8 01/01/18 12:00 97.9 112 19 123/72 97 97.9 01/01/18 11:54 74 18 97 Room Air 21 01/01/18 11:48 21 01/01/18 11:48 77 18 98 Room Air 21 01/01/18 10:21 Room Air 21 01/01/18 10:20 75 18 98 Room Air 21 01/01/18 08:17 70 151/89 01/01/18 08:00 97.7 60 19 151/89 99 97.7 01/01/18 07:34 Room Air 21 01/01/18 07:32 Room Air 01/01/18 03:32 98.6 76 16 146/80 96 Room Air 98.6 01/01/18 01:18 75 18 97 Room Air 21 01/01/18 01:08 75 18 97 Room Air 21 01/01/18 01:08 21 Intake and Output 12/31/17 01/01/18 19:00 07:00 Intake Total 315 ml 1050 ml Balance 315 ml 1050 ml Intake Oral 240 ml 400 ml IV Total 75 ml 650 ml # Voids 3 3 Laboratory Tests Test 01/01/18 05:15 White Blood Count 5.0 K/UL (4.8-10.8) Red Blood Count 4.22 M/UL (4.20-5.40) Hemoglobin 13.7 G/DL (12.0-16.0) Hematocrit 40.0 % (37.0-47.0) Mean Corpuscular Volume 95 FL (80-99) Mean Corpuscular Hemoglobin 32.5 PG (27.0-31.0) H Mean Corpuscular Hemoglobin Concent 34.3 G/DL (32.0-36.0) Red Cell Distribution Width 13.3 % (11.6-14.8) Platelet Count 270 K/UL (150-450) Mean Platelet Volume 6.5 FL (6.5-10.1) Neutrophils (%) (Auto) 73.8 % (45.0-75.0) Lymphocytes (%) (Auto) 20.3 % (20.0-45.0) Monocytes (%) (Auto) 4.4 % (1.0-10.0) Eosinophils (%) (Auto) 0.0 % (0.0-3.0) Basophils (%) (Auto) 1.5 % (0.0-2.0) Prothrombin Time 9.5 SEC (9.30-11.50) Prothromb Time International Ratio 0.9 (0.9-1.1) Activated Partial Thromboplast Time 25 SEC (23-33) Sodium Level 139 MMOL/L (136-145) Potassium Level 3.8 MMOL/L (3.5-5.1) Chloride Level 103 MMOL/L (98-107) Carbon Dioxide Level 27 MMOL/L (21-32) Anion Gap 9 mmol/L (5-15) Blood Urea Nitrogen 16 mg/dL (7-18) Creatinine 0.8 MG/DL (0.55-1.30) Estimat Glomerular Filtration Rate > 60 mL/min (>60) Glucose Level 155 MG/DL (74-106) H Lactic Acid Level 1.50 mmol/L (0.66-2.22) Calcium Level 9.2 MG/DL (8.5-10.1) Phosphorus Level 3.7 MG/DL (2.5-4.9) Magnesium Level 2.1 MG/DL (1.8-2.4) Total Bilirubin 0.2 MG/DL (0.2-1.0) Aspartate Amino Transf (AST/SGOT) 19 U/L (15-37) Alanine Aminotransferase (ALT/SGPT) 26 U/L (12-78) Alkaline Phosphatase 54 U/L (46-116) Total Protein 7.1 G/DL (6.4-8.2) Albumin 3.5 G/DL (3.4-5.0) Globulin 3.6 g/dL Albumin/Globulin Ratio 1.0 (1.0-2.7) Height (Feet): 5 Height (Inches): 5.00 Weight (Pounds): 185 Medications Current Medications Medications (Trade) Dose Ordered Sig/Reddy Route PRN Reason Start Time Stop Time Status Last Admin Dose Admin Acetaminophen (Tylenol) 650 mg Q4H PRN ORAL Mild Pain (Pain Scale 1-3) 12/31/17 12:30 01/30/18 12:29 Acetaminophen (Tylenol) 650 mg Q4H PRN ORAL fever 12/31/17 12:30 01/30/18 12:29 Albuterol/ Ipratropium (Albuterol/ Ipratropium) 3 ml Q4H PRN INH Shortness of Breath 12/31/17 12:30 01/05/18 12:29 01/01/18 16:20 Albuterol/ Ipratropium (Albuterol/ Ipratropium) 3 ml Q6HRT HHN 12/31/17 13:00 01/05/18 12:59 01/01/18 11:47 Amlodipine Besylate (Norvasc) 5 mg DAILY ORAL 01/01/18 09:00 01/30/18 08:59 01/01/18 08:17 Clonidine HCl (Catapres Tab) 0.1 mg Q6H PRN ORAL SBP is above 160 01/01/18 16:15 01/31/18 16:14 Dextrose (Dextrose 50%) STAT PRN IV Hypoglycemia 12/31/17 12:30 01/30/18 12:29 Diazepam (Valium) 5 mg Q6H PRN ORAL For Anxiety 01/01/18 19:30 01/08/18 19:29 Folic Acid 1 mg/ Magnesium Sulfate 2000 mg/ Multivitamins 10 ml/Sodium Chloride 1,014.2 ml @ 125 mls/ hr Q24H IV 12/31/17 22:00 01/30/18 21:59 01/01/18 21:19 Gabapentin (Neurontin) 600 mg TID ORAL 12/31/17 13:00 01/30/18 08:59 01/01/18 17:54 Heparin Sodium (Porcine) (Heparin 5000 units/ml) 5,000 units EVERY 8 HOURS SUBQ 12/31/17 14:00 01/30/18 13:59 01/01/18 21:21 Insulin Aspart (NovoLOG) BEFORE MEALS AND HS SUBQ 12/31/17 16:30 01/30/18 11:29 01/01/18 21:20 Methylprednisolone Sodium Succinate (Solu-MEDROL) 80 mg EVERY 8 HOURS IV 12/31/17 14:00 01/30/18 13:59 01/01/18 21:19 Ondansetron HCl (Zofran) 4 mg Q6H PRN IVP Nausea & Vomiting 12/31/17 12:30 01/30/18 12:29 Oseltamivir Phosphate (Tamiflu) 75 mg TWICE A DAY ORAL 12/31/17 18:00 01/04/18 09:01 01/01/18 17:54 Pantoprazole (Protonix) 40 mg DAILY ORAL 01/01/18 09:00 01/30/18 08:59 01/01/18 08:16 Promethazine HCl/ Codeine (Phenergan with Codeine) 5 ml Q6H PRN ORAL For Cough 01/01/18 16:30 01/31/18 16:29 01/01/18 16:52 Salmeterol Xinafoate/ Fluticasone (Advair 250/50 Diskus) 1 puffs Q12HRT INH 12/31/17 22:00 01/30/18 21:59 01/01/18 20:55 Thiamine HCl (Vitamin B1) 100 mg DAILY ORAL 01/01/18 09:00 01/30/18 09:59 01/01/18 08:16 Zolpidem Tartrate (Ambien) 5 mg HSPRN PRN ORAL Insomnia 12/31/17 12:30 01/07/18 12:29 12/31/17 22:13 Assessment/Plan Status: stable Assessment/Plan alcohol dependence alcohol wd mdd -valium prn -sOmany Robin M.D. Jan 01, 2018 23:53
[2018-01-01 23:54] VITALS: BP 146/74
[2018-01-02 04:11] VITALS: BP 129/82
[2018-01-02] MEDS: Solu-MEDROL 125mg Inj IV SCH (06:29)
[2018-01-02] MEDS: Heparin 5000 units/ml inj SUBQ SCH (06:30)
[2018-01-02] MEDS: NovoLOG Insulin Flexpen SUBQ SCH ×2 (06:33→12:09)
[2018-01-02 07:00] LABS: BASOPHILS % (AUTO) 1.1 % (0.0-2.0); HEMATOCRIT 39.4 % (37.0-47.0); HEMOGLOBIN 13.3 G/DL (12.0-16.0); LYMPHOCYTES % (AUTO) 13.6 % (20.0-45.0); MEAN CORPUSCULAR VOLUME 96 FL (80-99); MONOCYTES % (AUTO) 2.9 % (1.0-10.0); NEUTROPHILS % (AUTO) 82.4 % (45.0-75.0); PLATELET COUNT 259 K/UL (150-450); RED BLOOD COUNT 4.12 M/UL (4.20-5.40); RED CELL DISTRIBUTION WIDTH 13.5 % (11.6-14.8); WHITE BLOOD COUNT 6.9 K/UL (4.8-10.8)
[2018-01-02 07:16] LABS: ANION GAP 10 mmol/L (5-15); BLOOD UREA NITROGEN 17 mg/dL (7-18); CALCIUM 8.8 MG/DL (8.5-10.1); CARBON DIOXIDE 28 MMOL/L (21-32); CHLORIDE 102 MMOL/L (98-107); CREATININE 0.9 MG/DL (0.55-1.30); POTASSIUM 3.7 MMOL/L (3.5-5.1); SODIUM 139 MMOL/L (136-145)
[2018-01-02] MEDS: Albuterol/Ipratropium 3ml neb HHN SCH ×2 (07:30→12:19)
[2018-01-02 08:00] VITALS: BP 144/80
[2018-01-02] MEDS: Oseltamivir 75mg cap ORAL SCH (08:38)
[2018-01-02] MEDS: Thiamine 100mg tab ORAL SCH (08:38)
[2018-01-02] MEDS: Advair 250/50 Inhaler - 14 dose INH SCH (10:00)
[2018-01-02 12:00] VITALS: BP 148/90
--- NOTE | 2018-01-02 13:09 | Infectious Diseases Prog Note ---
Assessment/Plan Assessment/Plan Abx: tamiflu 12/31- Levofloxacin 12/31- Assessment: VIral URI./bronchitis 2ry to Influenza B -CXR: no acute process low grade fever, improving -no leukocytosis -Bcx NTD HTN asthma OA of b/l knees Plan: -Continue Tamiflu #3/; ok to discharge on this regimen. -01/01 SP Levaquin #2 -f/u cx -montior cbc/BMP, temperatures -resp support -droplets precautions Thank you for this consultation. Will continue to follow along with you. Discussed with RN. Subjective Allergies: Coded Allergies: No Known Allergies (Unverified , 10/28/17) Pt. stated she is not allergic to any medication / food Subjective afebrile in >48hrs no leukocytocis at RA Bcx NTD feelig better Objective Vital Signs Last 24 Hour Vital Signs Date Time Temp Pulse Resp B/P (MAP) Pulse Ox O2 Delivery O2 Flow Rate FiO2 01/02/18 12:27 76 20 98 Room Air 21 01/02/18 12:19 21 01/02/18 12:19 78 20 98 Room Air 21 01/02/18 12:00 98.1 72 20 148/90 97 98.1 01/02/18 10:00 Room Air 21 01/02/18 10:00 78 18 98 Room Air 21 01/02/18 08:42 64 144/80 01/02/18 08:00 97.9 63 18 144/80 96 97.9 01/02/18 07:30 Room Air 21 01/02/18 07:30 76 18 98 Room Air 21 01/02/18 04:11 97.5 73 20 129/82 97 Room Air 97.5 01/02/18 00:08 75 22 99 Room Air 21 01/01/18 23:59 70 18 99 Room Air 21 01/01/18 23:54 98.1 68 20 146/74 96 Room Air 98.1 01/01/18 21:15 72 24 97 Room Air 21 01/01/18 20:57 Room Air 21 01/01/18 20:56 71 18 97 Room Air 21 01/01/18 20:56 Room Air 21 01/01/18 19:40 97.9 68 20 136/76 98 Room Air 97.9 01/01/18 16:31 72 22 97 Room Air 21 01/01/18 16:20 69 24 97 Room Air 21 01/01/18 16:00 96.8 78 19 145/86 99 96.8 Height (Feet): 5 Height (Inches): 5.00 Weight (Pounds): 185 Objective GENERAL: The patient is a well-developed and well-nourished female, in no apparent distress. HEENT: Eyes, pupils are equal and responsive to light and accommodation. Extraocular movements are intact. NECK: Supple without lymphadenopathy. CHEST: Lungs are clear to auscultation bilaterally with few scattered wheezes in the bilateral lower bases. ABDOMEN: Soft, nontender, and nondistended. Positive bowel sounds. No evidence of hepatosplenomegaly. Currently, no rebound or guarding noted. CARDIOVASCULAR: Regular rhythm and rate. S1 and S2 are normal without murmurs, rubs, or gallops. EXTREMITIES: Negative for clubbing, cyanosis, or edema. Microbiology Date/Time Source Procedure Growth Status 12/31/17 05:30 Blood Blood Culture - Preliminary NO GROWTH AFTER 48 HOURS Resulted 12/31/17 05:15 Blood Blood Culture - Preliminary NO GROWTH AFTER 48 HOURS Resulted 12/31/17 01:30 Nasal Nares Influenza Types A,B Antigen (VAZQUEZ) - Final Complete Laboratory Tests Test 01/02/18 05:00 White Blood Count 6.9 K/UL (4.8-10.8) Red Blood Count 4.12 M/UL (4.20-5.40) L Hemoglobin 13.3 G/DL (12.0-16.0) Hematocrit 39.4 % (37.0-47.0) Mean Corpuscular Volume 96 FL (80-99) Mean Corpuscular Hemoglobin 32.2 PG (27.0-31.0) H Mean Corpuscular Hemoglobin Concent 33.7 G/DL (32.0-36.0) Red Cell Distribution Width 13.5 % (11.6-14.8) Platelet Count 259 K/UL (150-450) Mean Platelet Volume 6.5 FL (6.5-10.1) Neutrophils (%) (Auto) 82.4 % (45.0-75.0) H Lymphocytes (%) (Auto) 13.6 % (20.0-45.0) L Monocytes (%) (Auto) 2.9 % (1.0-10.0) Eosinophils (%) (Auto) 0.0 % (0.0-3.0) Basophils (%) (Auto) 1.1 % (0.0-2.0) Sodium Level 139 MMOL/L (136-145) Potassium Level 3.7 MMOL/L (3.5-5.1) Chloride Level 102 MMOL/L (98-107) Carbon Dioxide Level 28 MMOL/L (21-32) Anion Gap 10 mmol/L (5-15) Blood Urea Nitrogen 17 mg/dL (7-18) Creatinine 0.9 MG/DL (0.55-1.30) Estimat Glomerular Filtration Rate > 60 mL/min (>60) Glucose Level 191 MG/DL (74-106) H Calcium Level 8.8 MG/DL (8.5-10.1) Current Medications Medications (Trade) Dose Ordered Sig/Reddy Route PRN Reason Start Time Stop Time Status Last Admin Dose Admin Acetaminophen (Tylenol) 650 mg Q4H PRN ORAL Mild Pain (Pain Scale 1-3) 12/31/17 12:30 01/30/18 12:29 01/01/18 23:55 Acetaminophen (Tylenol) 650 mg Q4H PRN ORAL fever 12/31/17 12:30 01/30/18 12:29 Albuterol/ Ipratropium (Albuterol/ Ipratropium) 3 ml Q4H PRN INH Shortness of Breath 12/31/17 12:30 01/05/18 12:29 01/01/18 16:20 Albuterol/ Ipratropium (Albuterol/ Ipratropium) 3 ml Q6HRT HHN 12/31/17 13:00 01/05/18 12:59 01/02/18 12:19 Amlodipine Besylate (Norvasc) 5 mg DAILY ORAL 01/01/18 09:00 01/30/18 08:59 01/02/18 08:42 Clonidine HCl (Catapres Tab) 0.1 mg Q6H PRN ORAL SBP is above 160 01/01/18 16:15 01/31/18 16:14 Dextrose (Dextrose 50%) STAT PRN IV Hypoglycemia 12/31/17 12:30 01/30/18 12:29 Diazepam (Valium) 10 mg Q6H PRN ORAL For Anxiety 01/02/18 01:30 01/09/18 01:29 01/02/18 08:39 Fluoxetine HCl (PROzac) 20 mg DAILY ORAL 01/02/18 09:00 02/01/18 08:59 01/02/18 08:38 Folic Acid 1 mg/ Magnesium Sulfate 2000 mg/ Multivitamins 10 ml/Sodium Chloride 1,014.2 ml @ 125 mls/ hr Q24H IV 12/31/17 22:00 01/30/18 21:59 01/01/18 21:19 Gabapentin (Neurontin) 600 mg TID ORAL 12/31/17 13:00 01/30/18 08:59 01/02/18 12:06 Heparin Sodium (Porcine) (Heparin 5000 units/ml) 5,000 units EVERY 8 HOURS SUBQ 12/31/17 14:00 01/30/18 13:59 01/02/18 06:30 Insulin Aspart (NovoLOG) BEFORE MEALS AND HS SUBQ 12/31/17 16:30 01/30/18 11:29 01/02/18 12:09 Methylprednisolone Sodium Succinate (Solu-MEDROL) 80 mg EVERY 8 HOURS IV 12/31/17 14:00 01/30/18 13:59 01/02/18 06:29 Ondansetron HCl (Zofran) 4 mg Q6H PRN IVP Nausea & Vomiting 12/31/17 12:30 01/30/18 12:29 Oseltamivir Phosphate (Tamiflu) 75 mg TWICE A DAY ORAL 12/31/17 18:00 01/04/18 09:01 01/02/18 08:38 Pantoprazole (Protonix) 40 mg DAILY ORAL 01/01/18 09:00 01/30/18 08:59 01/02/18 09:21 Promethazine HCl/ Codeine (Phenergan with Codeine) 5 ml Q6H PRN ORAL For Cough 01/01/18 16:30 01/31/18 16:29 01/01/18 16:52 Salmeterol Xinafoate/ Fluticasone (Advair 250/50 Diskus) 1 puffs Q12HRT INH 12/31/17 22:00 01/30/18 21:59 01/01/18 20:55 Thiamine HCl (Vitamin B1) 100 mg DAILY ORAL 01/01/18 09:00 01/30/18 09:59 01/02/18 08:38 Zolpidem Tartrate (Ambien) 5 mg HSPRN PRN ORAL Insomnia 12/31/17 12:30 01/07/18 12:29 01/01/18 23:53 Mildred Black M.D. Jan 02, 2018 13:09
[2018-01-02] MEDS ORDERED: Tubing IV Secondary IV ONE (13:46)
--- NOTE | 2018-01-02 18:17 | Discharge Summary ---
Discharge Summary Hospital Course Date of Admission Dec 31, 2017 at 03:34 Date of Discharge Jan 02, 2018 at 13:47 Admitting Diagnosis SHORTNESS OF BREATH, ASTHMA HPI Lalo Sainz is a 52 year old female who was admitted on Dec 31, 2017 at 03:34 for Short Of Breath, Asthma Hospital Course [id number] Discharge Discharge Disposition Patient was discharged to Home (01) Discharge Diagnoses: Lisbeth Drummond NP Jan 02, 2018 18:17
--- NOTE | 2018-01-02 21:33 | Pulmonology Progress Note ---
Assessment/Plan Problems: (1) Influenza B (2) COPD with acute exacerbation (3) ETOH abuse Assessment/Plan impriving continue Tamiflu ID evaluaton appreciated check cultures symptomatic treatment dc planning Subjective ROS Limited/Unobtainable: No Constitutional: Reports: no symptoms HEENT: Repors: no symptoms Respiratory: Reports: no symptoms Allergies: Coded Allergies: No Known Allergies (Unverified , 10/28/17) Pt. stated she is not allergic to any medication / food Objective Last 24 Hour Vital Signs Date Time Temp Pulse Resp B/P (MAP) Pulse Ox O2 Delivery O2 Flow Rate FiO2 01/02/18 12:27 76 20 98 Room Air 21 01/02/18 12:19 21 01/02/18 12:19 78 20 98 Room Air 21 01/02/18 12:00 98.1 72 20 148/90 97 98.1 01/02/18 10:00 Room Air 21 01/02/18 10:00 78 18 98 Room Air 21 01/02/18 08:42 64 144/80 01/02/18 08:00 97.9 63 18 144/80 96 97.9 01/02/18 07:30 Room Air 21 01/02/18 07:30 76 18 98 Room Air 21 01/02/18 04:11 97.5 73 20 129/82 97 Room Air 97.5 01/02/18 00:08 75 22 99 Room Air 21 01/01/18 23:59 70 18 99 Room Air 21 01/01/18 23:54 98.1 68 20 146/74 96 Room Air 98.1 Intake and Output 01/01/18 01/02/18 19:00 07:00 Intake Total 100 ml 875 ml Balance 100 ml 875 ml IV Total 100 ml 875 ml # Voids 3 Objective HEENT: atraumatic Neck: full ROM Heart: HR/BP stable Lungs: +rhonchi Abdomen: soft, active bowel sounds, feeding tube Extremities: no edema Microbiology Date/Time Source Procedure Growth Status 12/31/17 05:30 Blood Blood Culture - Preliminary NO GROWTH AFTER 48 HOURS Resulted 12/31/17 05:15 Blood Blood Culture - Preliminary NO GROWTH AFTER 48 HOURS Resulted 12/31/17 01:30 Nasal Nares Influenza Types A,B Antigen (VAZQUEZ) - Final Complete Laboratory Tests 01/02/18 05:00: White Blood Count 6.9, Red Blood Count 4.12L, Hemoglobin 13.3, Hematocrit 39.4, Mean Corpuscular Volume 96, Mean Corpuscular Hemoglobin 32.2H, Mean Corpuscular Hemoglobin Concent 33.7, Red Cell Distribution Width 13.5, Platelet Count 259, Mean Platelet Volume 6.5, Neutrophils (%) (Auto) 82.4H, Lymphocytes (%) (Auto) 13.6L, Monocytes (%) (Auto) 2.9, Eosinophils (%) (Auto) 0.0, Basophils (%) (Auto ) 1.1, Sodium Level 139, Potassium Level 3.7, Chloride Level 102, Carbon Dioxide Level 28, Anion Gap 10, Blood Urea Nitrogen 17, Creatinine 0.9, Estimat Glomerular Filtration Rate > 60, Glucose Level 191H, Calcium Level 8.8 Rufino Christina MD Jan 02, 2018 21:33
--- NOTE | 2018-01-03 13:00 | Discharge Summary 2 SIG ---
DATE OF ADMISSION: 12/31/2017 DATE OF DISCHARGE: 01/02/2018 CONSULTANTS: 1. Rufino Christina M.D. 2. Mildred Black M.D. 3. Osmany Carrillo M.D. BRIEF HOSPITAL COURSE: The patient is a 52-year-old female, who presented to ED complaining of cough and fever. The patient was admitted in October 2017 for upper respiratory tract infection. The patient was complaining people at home at been sick. Her symptoms started four days ago and she began to have cough productive of greenish sputum and was also having fevers. She has medical history significant for hypertension, asthma, and osteoarthritis of bilateral knees. On evaluation at ED, there was no leukocytosis. Lactate was greater than 5. Chest x-ray showed no acute cardiopulmonary disease. She had a influenza screen that was positive for influenza B. She was started on Tamiflu and was given breathing treatments and Solu-Medrol. She had EKG that showed sinus tachycardia with no acute ischemic changes. She was admitted for evaluation of cough and fever. She was started empirically on Levaquin. She was febrile with temperature 100.4. She was followed by Infectious Disease specialist and salicylic acid blender. Levaquin was eventually discontinued and was continued on Tamiflu. She has history of alcohol abuse and was placed on Ativan p.r.n. She has history of depression and alcohol dependence with anxiety. She was continued on Prozac. She was given IV Solu-Medrol. She was placed on droplet precautions and was given respiratory support. Blood culture did not isolate any growth. Her symptoms improved. She was saturating well on room air. She was eventually cleared for discharge. FINAL DIAGNOSES: 1. Viral upper respiratory infection with bronchitis secondary to influenza B. 2. Hypertension. 3. Asthma. 4. Osteoarthritis of bilateral knees. 5. Major depressive disorder. 6. Alcohol dependence. 7. Asthma. 8. Hypertension. 9. Acute chronic obstructive pulmonary disease exacerbation. DISPOSITION: The patient was discharged home. DISCHARGE MEDICATIONS: Refer to medication list. DISCHARGE INSTRUCTIONS: Follow up with PCP continue with Tamiflu. Mookie Ezra, M.D. I have been assigned to dictate discharge summary on this account and I was not involved in the patient's management. Lisbeth Drummond N.P. DR: Flavio JOB#: [id number] CC: [place]
--- NOTE | 2018-01-03 21:59 | General Progress Note ---
Assessment/Plan Status: stable, unchanged Subjective Date patient seen: Dec 31, 2017 Neurologic/Psychiatric: Reports: anxiety, depressed, emotional problems Allergies: Coded Allergies: No Known Allergies (Unverified , 10/28/17) Pt. stated she is not allergic to any medication / food Objective Height (Feet): 5 Height (Inches): 5.00 Weight (Pounds): 185 Osmany Carrillo M.D. Jan 03, 2018 21:58
--- NOTE | 2018-01-03 22:03 | General Progress Note ---
Assessment/Plan Status: stable Assessment/Plan alcohol dependence alcohol wd mdd -valium prn -prozac Subjective Date patient seen: Jan 02, 2018 Neurologic/Psychiatric: Reports: anxiety, depressed, emotional problems Allergies: Coded Allergies: No Known Allergies (Unverified , 10/28/17) Pt. stated she is not allergic to any medication / food Objective Height (Feet): 5 Height (Inches): 5.00 Weight (Pounds): 185 General Appearance: no apparent distress, alert Neurologic: oriented x 3, responsive, depressed affect Osmany Carrillo M.D. Jan 03, 2018 22:03
== END 2018-01-02 13:47 | disposition home or self-care (01) | DRG 194 ==
LOC: EDBD 01:17 → EMR 01:33 → 2E 03:34 → EDBEDREQ 04:33 → 4W 12:20
DX: J10.1 Influenza due to other identified influenza virus with other respiratory manifestations (principal); J44.1 Chronic obstructive pulmonary disease with (acute) exacerbation; I10 Essential (primary) hypertension; F10.239 Alcohol dependence with withdrawal, unspecified; M17.0 Bilateral primary osteoarthritis of knee; F32.9 Major depressive disorder, single episode, unspecified; F17.200 Nicotine dependence, unspecified, uncomplicated
CPT/HCPCS: 36415; 71045; 80048; 80053; 82550; 82553; 82962; 83605; 83735; 83880; 84100; 84484; 85007; 85025; 85610; 85730; 86710; 87040; 93005; 94640; 94664; 99285; J1815; J7620

== ENCOUNTER 2018-08-04 19:22 | Inpatient (IN) | payer MEDICARE, OTHER ==
[~2018-08-04] VITALS: Ht 165.1 cm; Wt 86.2 kg
[2018-08-04] MEDS ORDERED: Sodium Chloride 500ML 500 ML IV ONE (19:47)
--- NOTE | 2018-08-04 19:50 | Emergency Room Report ---
History of Present Illness General Chief Complaint: General Complaint Source: Patient Present Illness HPI Patient presents with complaints of chest pain and palpitations She feels increasingly nauseated vomiting Also having sensation of tremors diffusely Denies any pleurisy however she does feel short of breath at times patient also has a history of COPD Denies any recent travel denies any pleurisy denies any calf swelling pain to the midsternal area is 3 out of 10 heaviness Allergies: Coded Allergies: No Known Allergies (Unverified , 10/28/17) Pt. stated she is not allergic to any medication / food Patient History Past Medical History: see triage record Pertinent Family History: none Last Menstrual Period: none Now: No : 6 Para: 6 Reviewed Nursing Documentation: PMH: Agreed; PSxH: Agreed Nursing Documentation-PMH Hx Cardiac Problems: Yes Hx Hypertension: Yes Hx Pacemaker: No Hx Asthma: Yes Hx COPD: No Hx Cancer: No Hx Gastrointestinal Problems: No Hx Neurological Problems: No Review of Systems All Other Systems: negative except mentioned in HPI Physical Exam Vital Signs Date Time Temp Pulse Resp B/P (MAP) Pulse Ox O2 Delivery O2 Flow Rate FiO2 08/04/18 19:36 99.5 100 18 202/113 96 Room Air 99.5 Sp02 EP Interpretation: reviewed, normal General Appearance: mild distress - Appears anxious tearful Head: normocephalic, atraumatic Eyes: bilateral eye PERRL, bilateral eye EOMI ENT: hearing grossly normal, normal pharynx, TMs + canals normal, uvula midline Neck: full range of motion, supple, no meningismus, no bony tend Respiratory: no rhonchi, no respiratory distress, no retraction, no accessory muscle use, crackles - Both lower lobes Cardiovascular #1: normal peripheral pulses, regular rate, rhythm, no edema, no gallop, no JVD, no murmur Gastrointestinal: normal bowel sounds, non tender, soft, no mass, no organomegaly, non-distended, no guarding, no hernia, no pulsatile mass, no rebound Genitourinary: no CVA tenderness Musculoskeletal: normal inspection Neurologic: oriented x3, responsive, city council member III-XII nml as tested, motor strength/ tone normal, sensory intact Psychiatric: mood/affect normal Skin: normal color, no rash, warm/dry, palpation normal Lymphatic: normal inspection, no adenopathy Medical Decision Making Diagnostic Impression: Primary Impression: ACS (acute coronary syndrome) Additional Impressions: COPD with acute exacerbation Alcohol withdrawal ER Course Patient also reports not drinking for the past 2 days she does drink alcohol everyday Other cardiac cardiopulmonary and vascular pathology entertained No obvious acute end organ injury Given the patient's complaints however and general discomfort she is admitted for further care Labs Test 08/04/18 20:00 08/05/18 10:00 White Blood Count 7.0 K/UL (4.8-10.8) 5.1 K/UL (4.8-10.8) Red Blood Count 4.47 M/UL (4.20-5.40) 4.24 M/UL (4.20-5.40) Hemoglobin 14.1 G/DL (12.0-16.0) 12.9 G/DL (12.0-16.0) Hematocrit 41.2 % (37.0-47.0) 38.7 % (37.0-47.0) Mean Corpuscular Volume 92 FL (80-99) 91 FL (80-99) Mean Corpuscular Hemoglobin 31.5 PG (27.0-31.0) 30.5 PG (27.0-31.0) Mean Corpuscular Hemoglobin Concent 34.2 G/DL (32.0-36.0) 33.4 G/DL (32.0-36.0) Red Cell Distribution Width 12.6 % (11.6-14.8) 12.9 % (11.6-14.8) Platelet Count 308 K/UL (150-450) 289 K/UL (150-450) Mean Platelet Volume 5.7 FL (6.5-10.1) 6.0 FL (6.5-10.1) Neutrophils (%) (Auto) 55.9 % (45.0-75.0) 50.4 % (45.0-75.0) Lymphocytes (%) (Auto) 36.2 % (20.0-45.0) 38.6 % (20.0-45.0) Monocytes (%) (Auto) 4.9 % (1.0-10.0) 7.5 % (1.0-10.0) Eosinophils (%) (Auto) 1.0 % (0.0-3.0) 2.0 % (0.0-3.0) Basophils (%) (Auto) 2.1 % (0.0-2.0) 1.5 % (0.0-2.0) Sodium Level 140 MMOL/L (136-145) Potassium Level 3.6 MMOL/L (3.5-5.1) Chloride Level 104 MMOL/L (98-107) Carbon Dioxide Level 26 MMOL/L (21-32) Anion Gap 10 mmol/L (5-15) Blood Urea Nitrogen 12 mg/dL (7-18) Creatinine 0.8 MG/DL (0.55-1.30) Estimat Glomerular Filtration Rate > 60 mL/min (>60) Glucose Level 116 MG/DL (74-106) Calcium Level 9.7 MG/DL (8.5-10.1) Total Bilirubin 0.4 MG/DL (0.2-1.0) Aspartate Amino Transf (AST/SGOT) 24 U/L (15-37) Alanine Aminotransferase (ALT/SGPT) 23 U/L (12-78) Alkaline Phosphatase 72 U/L (46-116) Total Creatine Kinase 560 U/L (26-308) Creatine Kinase MB 3.7 NG/ML (0.0-3.6) Creatine Kinase MB Relative Index 0.6 Troponin I 0.000 ng/mL (0.000-0.056) Total Protein 7.6 G/DL (6.4-8.2) Albumin 3.9 G/DL (3.4-5.0) Globulin 3.7 g/dL Albumin/Globulin Ratio 1.1 (1.0-2.7) Lipase 103 U/L (73-393) Urine Opiates Screen Negative (NEGATIVE) Urine Barbiturates Screen Negative (NEGATIVE) Phencyclidine (PCP) Screen Negative (NEGATIVE) Urine Amphetamines Screen Negative (NEGATIVE) Urine Benzodiazepines Screen Negative (NEGATIVE) Urine Cocaine Screen Negative (NEGATIVE) Urine Marijuana (THC) Screen Positive (NEGATIVE) Prothrombin Time 10.6 SEC (9.30-11.50) Prothromb Time International Ratio 1.0 (0.9-1.1) Activated Partial Thromboplast Time 26 SEC (23-33) C-Reactive Protein, Quantitative < 0.4 mg/dL (0.00-0.90) Triglycerides Level 61 MG/DL (30-150) Cholesterol Level 228 MG/DL (< 200) LDL Cholesterol 126 mg/dL (<100) HDL Cholesterol 83 MG/DL (40-60) Cholesterol/HDL Ratio 2.7 (3.3-4.4) Thyroid Stimulating Hormone (TSH) 2.268 uiU/mL (0.358-3.740) Rhythm Strip Diag. Results EP Interpretation: yes Rate: 67 Rhythm: NSR, no PVC's, no ectopy Chest X-Ray Diagnostic Results Chest X-Ray Diagnostic Results : Chest X-Ray Ordered: Yes # of Views/Limited/Complete: 1 View Indication: Chest Pain EP Interpretation: Yes Interpretation: no consolidation, no effusion, no pneumothorax Impression: No acute disease Electronically Signed by: Main Ortiz DO Last Vital Signs Date Time Temp Pulse Resp B/P (MAP) Pulse Ox O2 Delivery O2 Flow Rate FiO2 08/04/18 19:36 99.5 100 18 202/113 96 Room Air 99.5 Status: improved Disposition: ADMITTED INPATIENT Condition: Serious Main Ortiz DO Aug 04, 2018 19:50
[2018-08-04] MEDS ORDERED: DiphenhydrAMINE 50mg/ml Inj IVP ONE (20:00)
[2018-08-04] MEDS ORDERED: Morphine Sulfate 4mg/ml Inj (IV/IM USE ONLY) IVP ONE (20:00)
[2018-08-04] MEDS ORDERED: LORazepam Inj 2mg/ml 1ml IV ONE (20:00)
[2018-08-04 20:21] LABS: BASOPHILS % (AUTO) 2.1 % (0.0-2.0); HEMATOCRIT 41.2 % (37.0-47.0); HEMOGLOBIN 14.1 G/DL (12.0-16.0); LYMPHOCYTES % (AUTO) 36.2 % (20.0-45.0); MEAN CORPUSCULAR VOLUME 92 FL (80-99); MONOCYTES % (AUTO) 4.9 % (1.0-10.0); NEUTROPHILS % (AUTO) 55.9 % (45.0-75.0); PLATELET COUNT 308 K/UL (150-450); RED BLOOD COUNT 4.47 M/UL (4.20-5.40); RED CELL DISTRIBUTION WIDTH 12.6 % (11.6-14.8)
[2018-08-04 20:24] VITALS: BP 178/72
--- NOTE | 2018-08-04 20:35 | Diagnostic Imaging Report ---
EXAM: XR Chest, 1 View CLINICAL HISTORY: CP TECHNIQUE: Frontal view of the chest. COMPARISON: No relevant prior studies available. FINDINGS: Lungs: No consolidation. Pleural space: Unremarkable. No pneumothorax. Heart: Unremarkable. No cardiomegaly. Mediastinum: Unremarkable. Bones/joints: No acute fracture. IMPRESSION: No acute cardiopulmonary disease.
[2018-08-04 20:45] LABS: ANION GAP 10 mmol/L (5-15); BLOOD UREA NITROGEN 12 mg/dL (7-18); CALCIUM 9.7 MG/DL (8.5-10.1); CARBON DIOXIDE 26 MMOL/L (21-32); CHLORIDE 104 MMOL/L (98-107); CREATININE 0.8 MG/DL (0.55-1.30); POTASSIUM 3.6 MMOL/L (3.5-5.1); SODIUM 140 MMOL/L (136-145)
[2018-08-04 20:58] LABS: ALANINE AMINOTRANSFERASE 23 U/L (12-78); ALBUMIN 3.9 G/DL (3.4-5.0); ALBUMIN/GLOBULIN RATIO 1.1 (1.0-2.7); ALKALINE PHOSPHATASE 72 U/L (46-116); ASPARTATE AMINO TRANSFERASE 24 U/L (15-37); BILIRUBIN,TOTAL 0.4 MG/DL (0.2-1.0); CKMB 3.7 NG/ML (0.0-3.6); CREATINE KINASE 560 U/L (26-308)
[2018-08-04] MEDS ORDERED: Enalaprilat 2.5mg/2ml Inj IV PRN (21:30)
[2018-08-04] MEDS ORDERED: Miralax 17gm pkt ORAL PRN (21:30)
[2018-08-04] MEDS ORDERED: Albuterol/Ipratropium 3ml neb HHN PRN (21:30)
[2018-08-04] MEDS ORDERED: dilTIAZem HCl 25mg/5ml Inj IV PRN (21:30)
[2018-08-04] MEDS ORDERED: Nitroglycerin Subl 0.4mg tab SL PRN (21:30)
[2018-08-04 22:20] VITALS: BP 170/68
[2018-08-05] VITALS (7 sets, daily range): BP systolic 128–170; BP diastolic 60–91
[2018-08-05] MEDS ORDERED: LORazepam Inj 2mg/ml 1ml IV ONE (02:00)
[2018-08-05] MEDS: Aspirin Baby 81mg ORAL SCH (09:30)
[2018-08-05] MEDS: Heparin 5000 units/ml inj SUBQ SCH ×2 (09:34→20:40)
[2018-08-05 10:15] LABS: BASOPHILS % (AUTO) 1.5 % (0.0-2.0); HEMATOCRIT 38.7 % (37.0-47.0); HEMOGLOBIN 12.9 G/DL (12.0-16.0); LYMPHOCYTES % (AUTO) 38.6 % (20.0-45.0); MEAN CORPUSCULAR VOLUME 91 FL (80-99); MONOCYTES % (AUTO) 7.5 % (1.0-10.0); NEUTROPHILS % (AUTO) 50.4 % (45.0-75.0); PLATELET COUNT 289 K/UL (150-450); RED BLOOD COUNT 4.24 M/UL (4.20-5.40); RED CELL DISTRIBUTION WIDTH 12.9 % (11.6-14.8); WHITE BLOOD COUNT 5.1 K/UL (4.8-10.8)
--- NOTE | 2018-08-05 10:34 | Consultation ---
History of Present Illness General Date patient seen: Aug 05, 2018 Time patient seen: 10:34 Chief Complaint: General Complaint Present Illness HPI pt came in from home w/ C/O increased anxiety and "alcohol withdrawals". pt stated that she has quit drinking 2 days ago. She was prescribed medicine ( valium) Patient is restless and anxious and complains of chest pain and palpitations. She has a history of hypertension and obesity. Initial troponin negative. Chest x ray No acute cardiopulmonary disease. Allergies: Coded Allergies: No Known Allergies (Unverified , 10/28/17) Pt. stated she is not allergic to any medication / food Medication History Scheduled Albuterol Sulfate* (Proair Hfa*), 1 PUFF INH Q6H Amlodipine Besylate* (Amlodipine Besylate*), 5 MG ORAL DAILY Fluticasone/Salmeterol (Advair 250-50 Diskus), 1 PUFF INH EVERY 12 HOURS Gabapentin* (Gabapentin*), 600 PO TID, (Reported) Scheduled PRN Ipratropium/Albuterol Sulfate (Iprat-Albut 0.5-3(2.5) Mg/3 Ml), 3 ML IH TID PRN Patient History Healthcare decision maker Resuscitation status Advanced Directive on File Review of Systems Constitutional: Reports: no symptoms Eye: Reports: no symptoms ENT: Reports: no symptoms Respiratory: Reports: no symptoms Cardiovascular: Reports: chest pain, palpitations Gastrointestinal: Reports: no symptoms Genitourinary: Reports: no symptoms Musculoskeletal: Reports: no symptoms Skin: Reports: no symptoms Psychiatric: Reports: no symptoms Neurological: Reports: no symptoms Endocrine: Reports: no symptoms Hematologic/Lymphatic: Reports: no symptoms Physical Exam General Appearance: no apparent distress, alert Lines, tubes and drains: peripheral HEENT: normocephalic, atraumatic Neck: non-tender, normal alignment, supple, normal inspection Respiratory/Chest: chest wall non-tender, lungs clear Cardiovascular/Chest: normal peripheral pulses, normal rate, regular rhythm Abdomen: normal bowel sounds, non tender, soft Extremities: normal range of motion, non-tender Last 24 Hour Vital Signs Date Time Temp Pulse Resp B/P (MAP) Pulse Ox O2 Delivery O2 Flow Rate FiO2 08/05/18 09:30 68 141/91 08/05/18 08:00 97.8 68 20 141/91 (108) 98 97.8 08/05/18 07:05 97.5 72 16 151/60 99 Room Air 97.5 08/05/18 07:04 97.5 72 16 151/60 99 Room Air 97.5 08/05/18 02:58 97.9 79 18 162/69 99 Room Air 97.9 08/05/18 00:22 18 170/68 98 Room Air 08/04/18 22:20 18 170/68 97 Room Air 08/04/18 20:24 98.5 18 178/72 99 Room Air 98.5 08/04/18 20:11 99.5 08/04/18 19:36 99.5 100 18 202/113 96 Room Air 99.5 Intake and Output 08/04/18 08/05/18 19:00 07:00 Intake Total 500 ml Balance 500 ml Intake IV Total 500 ml # Voids 1 Laboratory Tests Test 08/04/18 20:00 08/05/18 10:00 White Blood Count 7.0 K/UL (4.8-10.8) 5.1 K/UL (4.8-10.8) Red Blood Count 4.47 M/UL (4.20-5.40) 4.24 M/UL (4.20-5.40) Hemoglobin 14.1 G/DL (12.0-16.0) 12.9 G/DL (12.0-16.0) Hematocrit 41.2 % (37.0-47.0) 38.7 % (37.0-47.0) Mean Corpuscular Volume 92 FL (80-99) 91 FL (80-99) Mean Corpuscular Hemoglobin 31.5 PG (27.0-31.0) H 30.5 PG (27.0-31.0) Mean Corpuscular Hemoglobin Concent 34.2 G/DL (32.0-36.0) 33.4 G/DL (32.0-36.0) Red Cell Distribution Width 12.6 % (11.6-14.8) 12.9 % (11.6-14.8) Platelet Count 308 K/UL (150-450) 289 K/UL (150-450) Mean Platelet Volume 5.7 FL (6.5-10.1) L 6.0 FL (6.5-10.1) L Neutrophils (%) (Auto) 55.9 % (45.0-75.0) 50.4 % (45.0-75.0) Lymphocytes (%) (Auto) 36.2 % (20.0-45.0) 38.6 % (20.0-45.0) Monocytes (%) (Auto) 4.9 % (1.0-10.0) 7.5 % (1.0-10.0) Eosinophils (%) (Auto) 1.0 % (0.0-3.0) 2.0 % (0.0-3.0) Basophils (%) (Auto) 2.1 % (0.0-2.0) H 1.5 % (0.0-2.0) Sodium Level 140 MMOL/L (136-145) Potassium Level 3.6 MMOL/L (3.5-5.1) Chloride Level 104 MMOL/L (98-107) Carbon Dioxide Level 26 MMOL/L (21-32) Anion Gap 10 mmol/L (5-15) Blood Urea Nitrogen 12 mg/dL (7-18) Creatinine 0.8 MG/DL (0.55-1.30) Estimat Glomerular Filtration Rate > 60 mL/min (>60) Glucose Level 116 MG/DL (74-106) H Calcium Level 9.7 MG/DL (8.5-10.1) Total Bilirubin 0.4 MG/DL (0.2-1.0) Aspartate Amino Transf (AST/SGOT) 24 U/L (15-37) Alanine Aminotransferase (ALT/SGPT) 23 U/L (12-78) Alkaline Phosphatase 72 U/L (46-116) Total Creatine Kinase 560 U/L (26-308) H Creatine Kinase MB 3.7 NG/ML (0.0-3.6) H Creatine Kinase MB Relative Index 0.6 Troponin I 0.000 ng/mL (0.000-0.056) Total Protein 7.6 G/DL (6.4-8.2) Albumin 3.9 G/DL (3.4-5.0) Globulin 3.7 g/dL Albumin/Globulin Ratio 1.1 (1.0-2.7) Lipase 103 U/L (73-393) Urine Opiates Screen Negative (NEGATIVE) Urine Barbiturates Screen Negative (NEGATIVE) Phencyclidine (PCP) Screen Negative (NEGATIVE) Urine Amphetamines Screen Negative (NEGATIVE) Urine Benzodiazepines Screen Negative (NEGATIVE) Urine Cocaine Screen Negative (NEGATIVE) Urine Marijuana (THC) Screen Positive (NEGATIVE) H Prothrombin Time Pending Prothromb Time International Ratio Pending Activated Partial Thromboplast Time Pending C-Reactive Protein, Quantitative Pending Triglycerides Level Pending Cholesterol Level Pending LDL Cholesterol Pending HDL Cholesterol Pending Cholesterol/HDL Ratio Pending Thyroid Stimulating Hormone (TSH) Pending Height (Feet): 5 Height (Inches): 5.00 Weight (Pounds): 190 Medications Current Medications Medications (Trade) Dose Ordered Sig/Reddy Route PRN Reason Start Time Stop Time Status Last Admin Dose Admin Acetaminophen (Tylenol) 650 mg Q4H PRN ORAL T>100.5 08/04/18 21:30 09/03/18 21:29 Albuterol/ Ipratropium (Albuterol/ Ipratropium) 3 ml Q4H PRN HHN Shortness of Breath 08/04/18 21:30 08/09/18 21:29 Amlodipine Besylate (Norvasc) 5 mg DAILY ORAL 08/05/18 09:00 09/04/18 08:59 08/05/18 09:30 Aspirin (ASA) 162 mg DAILY ORAL 08/05/18 09:00 09/04/18 08:59 08/05/18 09:30 Diltiazem HCl (Cardizem) 10 mg EVERY HOUR PRN IV heart rate more than 120, 08/04/18 21:30 09/03/18 21:29 Enalaprilat (Vasotec) 2.5 mg Q6H PRN IV sbp more than 160 08/04/18 21:30 09/03/18 21:29 Gabapentin (Neurontin) 300 mg TID ORAL 08/05/18 09:00 09/04/18 08:59 08/05/18 09:29 Heparin Sodium (Porcine) (Heparin 5000 units/ml) 5,000 units EVERY 12 HOURS SUBQ 08/05/18 09:00 09/04/18 08:59 08/05/18 09:34 Morphine Sulfate (Morphine Sulfate) 2 mg Q4H PRN IVP Severe Pain (Pain Scale 7-10) 08/04/18 21:30 08/11/18 21:29 Nitroglycerin (Ntg) 0.4 mg Q5MIN X 3 DOSES PRN SL Prn Chest Pain 08/04/18 21:30 09/03/18 21:29 Ondansetron HCl (Zofran) 4 mg Q6H PRN IVP Nausea & Vomiting 08/04/18 21:30 09/03/18 21:29 Polyethylene Glycol (Miralax) 17 gm DAILYPRN PRN ORAL Constipation 08/04/18 21:30 09/03/18 21:29 Temazepam (Restoril) 15 mg HSPRN PRN ORAL Insomnia 08/04/18 21:30 08/11/18 21:29 Assessment/Plan Status: stable Assessment/Plan Assessment/Plan: 1. Chest pain/palpitations Serial EKG/Troponin Echocardiogram Outpatient stress test 2. Chronic obstructive pulmonary disease. Continue albuterol and DuoNeb as above. 3. Hypertension. Continue amlodipine 4. Osteoarthritis of the knees. Physical therapy Robe Hurst MD Aug 05, 2018 10:34
[2018-08-05 10:40] LABS: CHOLESTEROL 228 MG/DL (< 200); HDL CHOLESTEROL 83 MG/DL (40-60); TRIGLYCERIDES 61 MG/DL (30-150)
[2018-08-05] MEDS ORDERED: Folic Acid 1 MG, Magnesium Sulfate 2,000 MG, Multivitamin - 12 Injection 10 ML, Thiamin... IV SCH ×5 (11:00)
[2018-08-05] MEDS: SODIUM CHLORIDE IV SCH ×4 (12:07)
[2018-08-05] MEDS: Thiamine 100 MG ivpb IVPB SCH ×2 (12:07)
[2018-08-05] MEDS: FOLIC ACID IV SCH ×4 (12:07)
[2018-08-05] MEDS: MAGNESIUM SULFATE 2 GM IV SCH ×4 (12:07)
[2018-08-05] MEDS: MULTIVITAMIN IV SCH ×4 (12:07)
--- NOTE | 2018-08-05 13:20 | History & Physical ---
History and Physical History & Physicial Dictated for Int Med-DR Munguia no. [id number]. Alpesh Roque MD Aug 05, 2018 13:20
[2018-08-05] MEDS: Morphine Sulfate 2mg/ml Inj IVP PRN ×2 (14:08→23:12)
[2018-08-05] MEDS: Albuterol/Ipratropium 3ml neb HHN PRN ×2 (16:15→23:25)
--- NOTE | 2018-08-05 19:15 | History and Physical Report ---
DATE OF ADMISSION: 08/05/2018 CHIEF COMPLAINT: The patient is a 52-year-old female, who presents with chief complaint of palpitations and chest pain. HISTORY OF PRESENT ILLNESS: This began one day prior to admission. The patient began to experience palpitations. The patient then began to experience chest pain. Chest pain is substernal. There is no radiation to the jaw or to the shoulder. The patient presented to [facility]. The patient was admitted for chest pain to rule out acute coronary syndrome. PAST MEDICAL HISTORY: Significant for: 1. Chronic obstructive pulmonary disease. 2. Hypertension. 3. Osteoarthritis of bilateral knees. PAST SURGICAL HISTORY: Significant for section x2. CURRENT MEDICATIONS: 1. Albuterol metered-dose inhaler two puffs p.o. q.i.d. p.r.n. 2. Amlodipine 5 mg p.o. daily. 3. Advair 250/50 one puff p.o. twice daily. 4. Gabapentin 600 mg p.o. three times daily. 5. DuoNeb nebulized q.4 h. p.r.n. ALLERGIES: No known drug allergies. SOCIAL HISTORY: The patient is single and unemployed. The patient lives with her children and her current boyfriend. The patient admits to tobacco use of one pack per day. The patient admits to heavy alcohol use including pint of gin daily. The patient denies other drugs of abuse. REVIEW OF SYSTEMS: CONSTITUTIONAL: The patient denies weight loss or weight gain. The patient denies fevers or chills. HEENT: The patient denies ear or throat pain. The patient denies headache. CARDIOVASCULAR: The patient complains of palpitations as above. CHEST: The patient complains of chest pain as above. ABDOMEN: The patient complains of nausea and vomiting. The patient denies diarrhea or constipation. GENITOURINARY: The patient denies dysuria or increased frequency of urination. NEUROMUSCULAR: The patient denies seizures or generalized weakness. PHYSICAL EXAMINATION: VITAL SIGNS: Temperature 97.9, respirations 18, pulse 79, and blood pressure 162/69. GENERAL: The patient is a well-developed and well-nourished female, in no apparent distress. HEENT: Eyes, pupils equal and responsive to light and accommodation. Extraocular movements are intact. NECK: Supple without lymphadenopathy. CHEST: Lungs are clear to auscultation bilaterally without wheezes or rales. CARDIOVASCULAR: Regular rate. S1, S2 are normal without murmurs, rubs, or gallops. ABDOMEN: Soft, nontender, and nondistended with positive bowel sounds. No evidence of hepatosplenomegaly. Currently, no rebound or guarding noted. EXTREMITIES: Negative for clubbing, cyanosis, or edema. RECTAL: Refused. GENITAL: Refused. NEUROLOGIC: Cranial nerves II through XII are grossly intact without focal deficits. Motor strength is 5/5 bilaterally intact. Deep tendon reflexes are 2+, plantar. LABORATORY STUDIES: WBC 7.0, hemoglobin 14.1, hematocrit 41.2, and platelets 308,000. Sodium 140, potassium 3.6, chloride 104, CO2 26, BUN 12, creatinine 0.8, glucose 116. Troponin normal at 0.0. Chest x-ray is reported as no acute cardiopulmonary disease. ASSESSMENT: This is a 52-year-old female with: 1. Chest pain. 2. Palpitations. 3. Chronic obstructive pulmonary disease. 4. Hypertension. 5. Osteoarthritis of the knees. TREATMENT: 1. Chest pain/palpitations. A Cardiology consultation has been obtained with Dr. Hurst. Serial troponin levels will be performed. An echocardiogram is pending. We will follow recommendation of Cardiology. 2. Chronic obstructive pulmonary disease. Continue albuterol and DuoNeb as above. A Pulmonary consultation has been obtained with Dr. Rufino Christina. 3. Hypertension. Continue amlodipine as above. 4. Osteoarthritis of the knees. Alpesh Roque M.D. DR: AUBREE JOB#: [id number] CC:
[2018-08-06] VITALS: BP 146/81
[2018-08-06] MEDS: Albuterol/Ipratropium 3ml neb HHN PRN ×2 (03:50→07:45)
[2018-08-06 04:00] VITALS: BP 144/86
[2018-08-06 08:00] VITALS: BP 159/77
[2018-08-06] MEDS: Aspirin Baby 81mg ORAL SCH (08:10)
[2018-08-06] MEDS: Morphine Sulfate 2mg/ml Inj IVP PRN (08:11)
[2018-08-06] MEDS: Heparin 5000 units/ml inj SUBQ SCH (08:21)
--- NOTE | 2018-08-06 11:11 | Consultation ---
History of Present Illness General Date patient seen: Aug 05, 2018 Chief Complaint: General Complaint Present Illness HPI 52-year-old female, who presents with chief complaint of palpitations and chest pain. the pt was agitated and withdrawing from alcohol i ordered Valium for the pt at some point the pt was combative towards Kalli rn. the pt irritable and uncooperative. Allergies: Coded Allergies: No Known Allergies (Unverified , 10/28/17) Pt. stated she is not allergic to any medication / food Medication History Scheduled Albuterol Sulfate* (Proair Hfa*), 1 PUFF INH Q6H Amlodipine Besylate* (Amlodipine Besylate*), 5 MG ORAL DAILY Fluticasone/Salmeterol (Advair 250-50 Diskus), 1 PUFF INH EVERY 12 HOURS Gabapentin* (Gabapentin*), 600 PO TID, (Reported) Scheduled PRN Ipratropium/Albuterol Sulfate (Iprat-Albut 0.5-3(2.5) Mg/3 Ml), 3 ML IH TID PRN Patient History Limited by: medical condition History Provided By: Patient, Medical Record Healthcare decision maker Resuscitation status Full Code Advanced Directive on File Past Medical/Surgical History Past Medical/Surgical History: (1) Chest pain, pleuritic (2) Nicotine addiction (3) Fever (4) Asthma (5) Purulent bronchitis (6) Depression (7) HTN (hypertension) (8) Alcohol withdrawal (9) COPD with acute exacerbation Review of Systems Psychiatric: Reports: prior hx, anxiety, depressed feelings, emotional problems Physical Exam General Appearance: alert, agitated, overweight Neurologic: oriented x 3, responsive, depressed affect Last 24 Hour Vital Signs Date Time Temp Pulse Resp B/P (MAP) Pulse Ox O2 Delivery O2 Flow Rate FiO2 08/06/18 09:00 Room Air Room Air 08/06/18 08:10 75 159/77 08/06/18 08:00 89 08/06/18 08:00 98.2 75 20 159/77 (104) 99 98.2 08/06/18 07:47 82 22 99 Nasal Cannula 2.0 28 08/06/18 04:00 71 08/06/18 04:00 98.1 61 20 144/86 (105) 99 98.1 08/06/18 03:56 70 22 99 Nasal Cannula 2.0 28 08/06/18 03:50 78 20 99 Nasal Cannula 2.0 28 08/06/18 00:00 66 08/06/18 00:00 98.6 72 20 146/81 (102) 94 98.6 08/05/18 23:31 69 20 99 Nasal Cannula 2.0 28 08/05/18 23:29 64 24 99 Nasal Cannula 2.0 28 08/05/18 21:00 Room Air Room Air 08/05/18 20:00 98.0 68 20 140/84 (102) 95 98.0 08/05/18 20:00 76 08/05/18 16:19 85 22 100 Room Air 21 08/05/18 16:09 79 20 100 Nasal Cannula 2.0 28 08/05/18 16:09 36 08/05/18 16:09 85 20 Nasal Cannula 2.0 28 08/05/18 16:00 74 08/05/18 16:00 97.9 81 21 128/75 (92) 95 97.9 08/05/18 12:00 73 08/05/18 12:00 97.8 77 21 169/78 (108) 98 97.8 Intake and Output 08/05/18 08/06/18 19:00 07:00 Intake Total 700 ml 995 ml Balance 700 ml 995 ml Intake Oral 700 ml 120 ml IV Total 875 ml # Voids 2 2 Height (Feet): 5 Height (Inches): 5.00 Weight (Pounds): 190 Medications Current Medications Medications (Trade) Dose Ordered Sig/Reddy Route PRN Reason Start Time Stop Time Status Last Admin Dose Admin Acetaminophen (Tylenol) 650 mg Q4H PRN ORAL T>100.5 08/04/18 21:30 09/03/18 21:29 Albuterol/ Ipratropium (Albuterol/ Ipratropium) 3 ml EVERY 4 HOURS HHN 08/06/18 13:00 08/11/18 12:59 UNV Albuterol/ Ipratropium (Albuterol/ Ipratropium) 3 ml Q4H PRN HHN Shortness of Breath 08/05/18 15:00 08/10/18 14:59 08/06/18 07:45 Amlodipine Besylate (Norvasc) 5 mg DAILY ORAL 08/05/18 09:00 09/04/18 08:59 08/06/18 08:10 Aspirin (ASA) 162 mg DAILY ORAL 08/05/18 09:00 09/04/18 08:59 08/06/18 08:10 Diazepam (Valium) 10 mg Q2H PRN ORAL For Anxiety 08/05/18 12:15 08/12/18 12:14 08/06/18 03:59 Diltiazem HCl (Cardizem) 10 mg EVERY HOUR PRN IV heart rate more than 120, 08/04/18 21:30 09/03/18 21:29 Enalaprilat (Vasotec) 2.5 mg Q6H PRN IV sbp more than 160 08/04/18 21:30 09/03/18 21:29 Gabapentin (Neurontin) 300 mg TID ORAL 08/05/18 09:00 09/04/18 08:59 08/06/18 08:10 Heparin Sodium (Porcine) (Heparin 5000 units/ml) 5,000 units EVERY 12 HOURS SUBQ 08/05/18 09:00 09/04/18 08:59 08/06/18 08:21 Morphine Sulfate (Morphine Sulfate) 2 mg Q4H PRN IVP Severe Pain (Pain Scale 7-10) 08/04/18 21:30 08/11/18 21:29 08/06/18 08:11 Multivitamins 10 ml/Magnesium Sulfate 2000 mg/ Folic Acid 1 mg/ Sodium Chloride 1,014.2 ml @ 125 mls/ hr Q24HRS IV 08/05/18 12:15 09/04/18 12:14 08/05/18 12:07 Nitroglycerin (Ntg) 0.4 mg Q5MIN X 3 DOSES PRN SL Prn Chest Pain 08/04/18 21:30 09/03/18 21:29 Ondansetron HCl (Zofran) 4 mg Q6H PRN IVP Nausea & Vomiting 08/04/18 21:30 09/03/18 21:29 Polyethylene Glycol (Miralax) 17 gm DAILYPRN PRN ORAL Constipation 08/04/18 21:30 09/03/18 21:29 Sodium Chloride 1,000 ml @ 125 mls/hr Q8H IV 08/05/18 20:00 09/04/18 19:59 08/06/18 03:59 Temazepam (Restoril) 15 mg HSPRN PRN ORAL Insomnia 08/04/18 21:30 08/11/18 21:29 Thiamine HCl 100 mg/Dextrose 56 ml @ 112 mls/hr Q24H IVPB 08/05/18 13:00 09/04/18 12:59 08/05/18 12:07 Assessment/Plan Problem List: (1) Depression ICD Codes: F32.9 - Major depressive disorder, single episode, unspecified SNOMED: 64610278 (2) Alcohol withdrawal ICD Codes: F10.239 - Alcohol dependence with withdrawal, unspecified SNOMED: 217595267 (3) Nicotine addiction ICD Codes: F17.200 - Nicotine dependence, unspecified, uncomplicated SNOMED: 19503980 Status: stable Assessment/Plan thiamine folate mv valium prn vitals every 2 hrs Osmany Carrillo MD Aug 06, 2018 11:11
--- NOTE | 2018-08-06 11:13 | Cardiology Report ---
APPROVED REPORT EXAM: Two-dimensional and M-mode echocardiogram with Doppler and color Doppler. INDICATION Left ventricular function M-Mode DIMENSIONS IVSd0.9 (0.7-1.1cm)Left Atrium (MM)4.0 (1.6-4.0cm) LVDd4.7 (3.5-5.6cm)Aortic Root2.8 (2.0-3.7cm) PWd0.9 (0.7-1.1cm)Aortic Cusp Exc.2.0 (1.5-2.0cm) LVDs2.5 (2.5-4.0cm) PWs1.8 cm Technically difficult study due to patients resistance. Study quality precludes accurate assessment of regional wall motion. Normal left ventricular chamber size, systolic function and wall motion. Left ventricular ejection fraction estimated to be 60 %. No evidence left ventricular hypertrophy. Anterior Echo-free space, may be due to pericardial fat or effusion. All other cardiac chamber sizes are within normal limits. Normal aortic valve structure with adequate cusp excursion. Mildly thickened mitral valve leaflets with normal excursion. Mild mitral annulus and aortic root calcification. Pulmonic valve not well visualized. Normal tricuspid valve structure. Subcostal views not obtainable. A color flow and spectral Doppler study was performed and revealed: No aortic insufficiency. Mild mitral regurgitation. Normal left ventricular diastolic function. Trace tricuspid regurgitation. Tricuspid systolic velocities suggests peak right ventricular systolic pressure of 21 mmHg. No pulmonic regurgitation present.
--- NOTE | 2018-08-06 11:20 | Consultation ---
History of Present Illness General Date patient seen: Aug 06, 2018 Chief Complaint: General Complaint Present Illness HPI 52 year old female with hx of COPD, HTN, CAD, ETOH abuse presented to ER with complaints of chest pain and palpitations She feels increasingly nauseated vomiting. Also having sensation of tremors diffusely. She claims that she had DT. Allergies: Coded Allergies: No Known Allergies (Unverified , 10/28/17) Pt. stated she is not allergic to any medication / food Medication History Scheduled Albuterol Sulfate* (Proair Hfa*), 1 PUFF INH Q6H Amlodipine Besylate* (Amlodipine Besylate*), 5 MG ORAL DAILY Fluticasone/Salmeterol (Advair 250-50 Diskus), 1 PUFF INH EVERY 12 HOURS Gabapentin* (Gabapentin*), 600 PO TID, (Reported) Scheduled PRN Ipratropium/Albuterol Sulfate (Iprat-Albut 0.5-3(2.5) Mg/3 Ml), 3 ML IH TID PRN Patient History Healthcare decision maker Resuscitation status Full Code Advanced Directive on File Past Medical/Surgical History Past Medical/Surgical History: (1) Depression (2) HTN (hypertension) (3) Alcohol abuse Review of Systems Constitutional: Reports: malaise, weakness Respiratory: Reports: see HPI Cardiovascular: Reports: chest pain Gastrointestinal: Reports: see HPI Genitourinary: Reports: see HPI Physical Exam General Appearance: WD/WN Lines, tubes and drains: peripheral HEENT: normocephalic, atraumatic Neck: non-tender, normal alignment, supple Respiratory/Chest: chest wall non-tender, lungs clear, normal breath sounds Cardiovascular/Chest: normal peripheral pulses, normal rate Abdomen: normal bowel sounds, non tender Genitourinary/Rectal: normal genital exam, normal rectal exam Extremities: normal range of motion, non-tender Skin Exam: normal pigmentation 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 Last 24 Hour Vital Signs Date Time Temp Pulse Resp B/P (MAP) Pulse Ox O2 Delivery O2 Flow Rate FiO2 08/06/18 09:00 Room Air Room Air 08/06/18 08:10 75 159/77 08/06/18 08:00 89 08/06/18 08:00 98.2 75 20 159/77 (104) 99 98.2 08/06/18 07:47 82 22 99 Nasal Cannula 2.0 28 08/06/18 04:00 71 08/06/18 04:00 98.1 61 20 144/86 (105) 99 98.1 08/06/18 03:56 70 22 99 Nasal Cannula 2.0 28 08/06/18 03:50 78 20 99 Nasal Cannula 2.0 28 08/06/18 00:00 66 08/06/18 00:00 98.6 72 20 146/81 (102) 94 98.6 08/05/18 23:31 69 20 99 Nasal Cannula 2.0 28 08/05/18 23:29 64 24 99 Nasal Cannula 2.0 28 08/05/18 21:00 Room Air Room Air 08/05/18 20:00 98.0 68 20 140/84 (102) 95 98.0 08/05/18 20:00 76 08/05/18 16:19 85 22 100 Room Air 21 08/05/18 16:09 79 20 100 Nasal Cannula 2.0 28 08/05/18 16:09 36 08/05/18 16:09 85 20 Nasal Cannula 2.0 28 08/05/18 16:00 74 08/05/18 16:00 97.9 81 21 128/75 (92) 95 97.9 08/05/18 12:00 73 08/05/18 12:00 97.8 77 21 169/78 (108) 98 97.8 Intake and Output 08/05/18 08/06/18 19:00 07:00 Intake Total 700 ml 995 ml Balance 700 ml 995 ml Intake Oral 700 ml 120 ml IV Total 875 ml # Voids 2 2 Height (Feet): 5 Height (Inches): 5.00 Weight (Pounds): 190 Medications Current Medications Medications (Trade) Dose Ordered Sig/Reddy Route PRN Reason Start Time Stop Time Status Last Admin Dose Admin Acetaminophen (Tylenol) 650 mg Q4H PRN ORAL T>100.5 08/04/18 21:30 09/03/18 21:29 Albuterol/ Ipratropium (Albuterol/ Ipratropium) 3 ml EVERY 4 HOURS HHN 08/06/18 13:00 08/11/18 12:59 UNV Albuterol/ Ipratropium (Albuterol/ Ipratropium) 3 ml Q4H PRN HHN Shortness of Breath 08/05/18 15:00 08/10/18 14:59 08/06/18 07:45 Amlodipine Besylate (Norvasc) 5 mg DAILY ORAL 08/05/18 09:00 09/04/18 08:59 08/06/18 08:10 Aspirin (ASA) 162 mg DAILY ORAL 08/05/18 09:00 09/04/18 08:59 08/06/18 08:10 Diazepam (Valium) 10 mg Q2H PRN ORAL For Anxiety 08/05/18 12:15 08/12/18 12:14 08/06/18 03:59 Diltiazem HCl (Cardizem) 10 mg EVERY HOUR PRN IV heart rate more than 120, 08/04/18 21:30 09/03/18 21:29 Enalaprilat (Vasotec) 2.5 mg Q6H PRN IV sbp more than 160 08/04/18 21:30 09/03/18 21:29 Gabapentin (Neurontin) 300 mg TID ORAL 08/05/18 09:00 09/04/18 08:59 08/06/18 08:10 Heparin Sodium (Porcine) (Heparin 5000 units/ml) 5,000 units EVERY 12 HOURS SUBQ 08/05/18 09:00 09/04/18 08:59 08/06/18 08:21 Morphine Sulfate (Morphine Sulfate) 2 mg Q4H PRN IVP Severe Pain (Pain Scale 7-10) 08/04/18 21:30 08/11/18 21:29 08/06/18 08:11 Multivitamins 10 ml/Magnesium Sulfate 2000 mg/ Folic Acid 1 mg/ Sodium Chloride 1,014.2 ml @ 125 mls/ hr Q24HRS IV 08/05/18 12:15 09/04/18 12:14 08/05/18 12:07 Nitroglycerin (Ntg) 0.4 mg Q5MIN X 3 DOSES PRN SL Prn Chest Pain 08/04/18 21:30 09/03/18 21:29 Ondansetron HCl (Zofran) 4 mg Q6H PRN IVP Nausea & Vomiting 08/04/18 21:30 09/03/18 21:29 Polyethylene Glycol (Miralax) 17 gm DAILYPRN PRN ORAL Constipation 08/04/18 21:30 09/03/18 21:29 Sodium Chloride 1,000 ml @ 125 mls/hr Q8H IV 08/05/18 20:00 09/04/18 19:59 08/06/18 03:59 Temazepam (Restoril) 15 mg HSPRN PRN ORAL Insomnia 08/04/18 21:30 08/11/18 21:29 Thiamine HCl 100 mg/Dextrose 56 ml @ 112 mls/hr Q24H IVPB 08/05/18 13:00 09/04/18 12:59 08/05/18 12:07 Assessment/Plan Problem List: (1) Alcohol withdrawal ICD Codes: F10.239 - Alcohol dependence with withdrawal, unspecified SNOMED: 401486306 (2) Depression ICD Codes: F32.9 - Major depressive disorder, single episode, unspecified SNOMED: 75121571 (3) HTN (hypertension) ICD Codes: I10 - Essential (primary) hypertension SNOMED: 47306846 (4) ACS (acute coronary syndrome) ICD Codes: I24.9 - Acute ischemic heart disease, unspecified SNOMED: 372977333 Assessment/Plan symptomatic treatment Banana bag check electrolytes psych evaluation dvt prophylaxis Rufino Christina MD Aug 06, 2018 11:20
--- NOTE | 2018-08-06 11:30 | Cardiology Progress Note ---
Assessment/Plan Status: stable Assessment/Plan Assessment/Plan: 1. Chest pain/palpitations Serial EKG/Troponin Echocardiogram -> Left ventricular ejection fraction estimated to be 60 %. Outpatient stress test 2. Chronic obstructive pulmonary disease. Continue albuterol and DuoNeb 3. Hypertension. Continue amlodipine 4. Osteoarthritis of the knees. Physical therapy Ibuprofen 5. Obesity Weight loss 6. Alcoholism Banana bag Psych consult substance abuse counseling Subjective Cardiovascular: Reports: no symptoms Respiratory: Reports: no symptoms Gastrointestinal/Abdominal: Reports: no symptoms Genitourinary: Reports: no symptoms Subjective No acute events, troponin negative. vitals stable ,no acute distress. Echo Left ventricular ejection fraction estimated to be 60 %. Objective Last 24 Hour Vital Signs Date Time Temp Pulse Resp B/P (MAP) Pulse Ox O2 Delivery O2 Flow Rate FiO2 08/06/18 09:00 Room Air Room Air 08/06/18 08:10 75 159/77 08/06/18 08:00 89 08/06/18 08:00 98.2 75 20 159/77 (104) 99 98.2 08/06/18 07:47 82 22 99 Nasal Cannula 2.0 28 08/06/18 04:00 71 08/06/18 04:00 98.1 61 20 144/86 (105) 99 98.1 08/06/18 03:56 70 22 99 Nasal Cannula 2.0 28 08/06/18 03:50 78 20 99 Nasal Cannula 2.0 28 08/06/18 00:00 66 08/06/18 00:00 98.6 72 20 146/81 (102) 94 98.6 08/05/18 23:31 69 20 99 Nasal Cannula 2.0 28 08/05/18 23:29 64 24 99 Nasal Cannula 2.0 28 08/05/18 21:00 Room Air Room Air 08/05/18 20:00 98.0 68 20 140/84 (102) 95 98.0 08/05/18 20:00 76 08/05/18 16:19 85 22 100 Room Air 21 08/05/18 16:09 79 20 100 Nasal Cannula 2.0 28 08/05/18 16:09 36 08/05/18 16:09 85 20 Nasal Cannula 2.0 28 08/05/18 16:00 74 08/05/18 16:00 97.9 81 21 128/75 (92) 95 97.9 10/14/18 12:00 73 08/05/18 12:00 97.8 77 21 169/78 (108) 98 97.8 General Appearance: no apparent distress, alert, mild distress Neck: non-tender, normal alignment, supple Rhythm: NSR Cardiovascular: normal peripheral pulses, normal rate, regular rhythm Respiratory/Chest: chest wall non-tender, lungs clear Abdomen: normal bowel sounds, non tender, soft Extremities: normal range of motion, non-tender, normal inspection 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
[2018-08-06 12:00] VITALS: BP 140/85
[2018-08-06] MEDS: Thiamine 100 MG ivpb IVPB SCH ×2 (12:45)
[2018-08-06] MEDS: FOLIC ACID IV SCH ×4 (13:21)
[2018-08-06] MEDS: MULTIVITAMIN IV SCH ×4 (13:21)
[2018-08-06] MEDS: SODIUM CHLORIDE IV SCH ×4 (13:21)
[2018-08-06] MEDS: MAGNESIUM SULFATE 2 GM IV SCH ×4 (13:21)
[2018-08-06] MEDS ORDERED: dilTIAZem HCl 25mg/5ml Inj IV PRN (15:00)
[2018-08-06] MEDS ORDERED: Albuterol/Ipratropium 3ml neb HHN SCH ×2 (15:00)
[2018-08-06] MEDS ORDERED: Nitroglycerin Subl 0.4mg tab SL PRN (15:00)
[2018-08-06] MEDS ORDERED: Albuterol/Ipratropium 3ml neb HHN PRN (15:00)
[2018-08-06 15:32] LABS: BASOPHILS % (AUTO) 1.7 % (0.0-2.0); EOSINOPHILS % (AUTO) 1.5 % (0.0-3.0); HEMATOCRIT 40.8 % (37.0-47.0); HEMOGLOBIN 14.3 G/DL (12.0-16.0); LYMPHOCYTES % (AUTO) 24.7 % (20.0-45.0); MEAN CORPUSCULAR VOLUME 90 FL (80-99); MONOCYTES % (AUTO) 8.1 % (1.0-10.0); PLATELET COUNT 306 K/UL (150-450); RED BLOOD COUNT 4.53 M/UL (4.20-5.40); RED CELL DISTRIBUTION WIDTH 12.6 % (11.6-14.8); WHITE BLOOD COUNT 5.1 K/UL (4.8-10.8)
[2018-08-06 15:44] LABS: ANION GAP 10 mmol/L (5-15); BLOOD UREA NITROGEN 10 mg/dL (7-18); CALCIUM 9.5 MG/DL (8.5-10.1); CARBON DIOXIDE 27 MMOL/L (21-32); CHLORIDE 104 MMOL/L (98-107); CREATININE 0.8 MG/DL (0.55-1.30); POTASSIUM 3.9 MMOL/L (3.5-5.1); SODIUM 141 MMOL/L (136-145)
--- NOTE | 2018-08-06 19:21 | Internal Med Progress Note ---
Subjective Date of Service: Aug 06, 2018 Physician Name Alpesh Roque Attending Physician Mookie Munguia MD Allergies: Coded Allergies: No Known Allergies (Unverified , 10/28/17) Pt. stated she is not allergic to any medication / food ROS Limited/Unobtainable: No Constitutional: Reports: no symptoms HEENT: Reports: no symptoms Cardiovascular: Reports: no symptoms Respiratory: Reports: no symptoms Gastrointestinal/Abdominal: Reports: no symptoms Genitourinary: Reports: no symptoms Neurologic/Psychiatric: Reports: no symptoms Subjective 52 YO F admitted with chest pain and palpitations. Cover for Int Med-Dr Munguia Objective Last Vital Signs Date Time Temp Pulse Resp B/P (MAP) Pulse Ox O2 Delivery O2 Flow Rate FiO2 08/06/18 14:05 78 20 99 Nasal Cannula 2.0 28 08/06/18 12:00 97.8 140/85 (103) 97.8 Laboratory Tests Test 08/06/18 15:05 White Blood Count 5.1 K/UL (4.8-10.8) Red Blood Count 4.53 M/UL (4.20-5.40) Hemoglobin 14.3 G/DL (12.0-16.0) Hematocrit 40.8 % (37.0-47.0) Mean Corpuscular Volume 90 FL (80-99) Mean Corpuscular Hemoglobin 31.6 PG (27.0-31.0) H Mean Corpuscular Hemoglobin Concent 35.1 G/DL (32.0-36.0) Red Cell Distribution Width 12.6 % (11.6-14.8) Platelet Count 306 K/UL (150-450) Mean Platelet Volume 6.1 FL (6.5-10.1) L Neutrophils (%) (Auto) 64.0 % (45.0-75.0) Lymphocytes (%) (Auto) 24.7 % (20.0-45.0) Monocytes (%) (Auto) 8.1 % (1.0-10.0) Eosinophils (%) (Auto) 1.5 % (0.0-3.0) Basophils (%) (Auto) 1.7 % (0.0-2.0) Sodium Level 141 MMOL/L (136-145) Potassium Level 3.9 MMOL/L (3.5-5.1) Chloride Level 104 MMOL/L (98-107) Carbon Dioxide Level 27 MMOL/L (21-32) Anion Gap 10 mmol/L (5-15) Blood Urea Nitrogen 10 mg/dL (7-18) Creatinine 0.8 MG/DL (0.55-1.30) Estimat Glomerular Filtration Rate > 60 mL/min (>60) Glucose Level 103 MG/DL (74-106) Calcium Level 9.5 MG/DL (8.5-10.1) Troponin I 0.000 ng/mL (0.000-0.056) Intake and Output 08/05/18 08/06/18 19:00 07:00 Intake Total 700 ml 995 ml Balance 700 ml 995 ml Intake Oral 700 ml 120 ml IV Total 875 ml # Voids 2 2 Objective PHYSICAL EXAMINATION: VITAL SIGNS: Temperature 97.9, respirations 18, pulse 79, and blood pressure 162/69. GENERAL: The patient is a well-developed and well-nourished female, in no apparent distress. HEENT: Eyes, pupils equal and responsive to light and accommodation. Extraocular movements are intact. NECK: Supple without lymphadenopathy. CHEST: Lungs are clear to auscultation bilaterally without wheezes or rales. CARDIOVASCULAR: Regular rate. S1, S2 are normal without murmurs, rubs, or gallops. ABDOMEN: Soft, nontender, and nondistended with positive bowel sounds. No evidence of hepatosplenomegaly. Currently, no rebound or guarding noted. EXTREMITIES: Negative for clubbing, cyanosis, or edema. RECTAL: Refused. GENITAL: Refused. NEUROLOGIC: Cranial nerves II through XII are grossly intact without focal deficits. Motor strength is 5/5 bilaterally intact. Deep tendon reflexes are 2+, plantar. Assessment/Plan Problem List: (1) Chest pain, pleuritic (2) COPD with acute exacerbation Assessment & Plan: See pulmonary note. (3) HTN (hypertension) (4) Alcohol withdrawal Assessment/Plan D/C home today Alpesh Roque MD Aug 06, 2018 19:21
[2018-08-06] MEDS ORDERED: Heparin 5000 units/ml inj SUBQ SCH (21:00)
[2018-08-07] MEDS ORDERED: Aspirin Baby 81mg ORAL SCH (09:00)
--- NOTE | 2018-08-07 10:49 | Discharge Summary ---
Discharge Summary Discharge Summary _ DATE OF ADMISSION: 08/04/2018 DATE OF DISCHARGE: 08/06/2018. Patient left AGAINST MEDICAL ADVICE. REASON FOR ADMISSION: 52 years old female with past medical history of asthma/COPD, hypertension, coronary artery disease, alcohol abuse, smoker, obesity, knee osteoarthritis, presented to emergency department with complaints of chest pain and palpitations. Patient reported feeling nauseous. She also reported diffuse tremors. Patient did not drink alcohol for the last 2 days, however prior to it admitted to drinking on a daily basis. Upon evaluation vital signs revealed blood pressure to 202/113. Troponin was negative. ECG showed normal sinus rhythm, no acute ischemic changes. Laboratory workup revealed no leukocytosis, stable hemoglobin and hematocrit, stable renal parameters electrolytes, LFT, bilirubin and lipase. Urine toxicology screen was positive for marijuana. Chest x-ray revealed no acute cardiopulmonary pathology. Patient admitted with diagnoses of alcohol withdrawal ,chest pain with palpitations, rule out acute coronary syndrome ,hypertension. CONSULTANTS: decontaminator Dr. Hurst pulmonary Dr. Christina psychiatrist Dr. Carrillo [place] [employer] [facility]RSE: Patient initially admitted to monitored telemetry floor. Serial troponin were negative. EKG revealed no acute ischemic changes. Product Merchandiser closely followed. Patient was ruled out for acute AK. Echocardiogram revealed preserved ejection fraction of 60%. No wall motion abnormalities. Right ventricular systolic pressure of 21. Continuous monitoring on telemetry revealed no evidence of arrhythmia. Lipid panel revealed elevated total cholesterol of 228 and LDL 126. Patient was counseled on cardiac on low-fat low-cholesterol diet. Recommended repeat lipid panel in 3 months and if still abnormal, start statin. Blood pressure was managed with calcium channel henry. Heart rate remained stable. TSH was within normal limits. Antiplatelet therapy with aspirin provided. Pain management was addressed. DVT prophylaxis provided. Product Merchandiser recommended stress test as outpatient. Patient initially started on IV fluids/ banana bag with thiamine, folic acid, multivitamin and magnesium supplements. Valium was on board as needed. Supplemental oxygen provided needed to keep pulse oximetry above 92%. Pulmonary toilet was provided as needed. Blood pressure was counseled on abstinent from alcohol and nicotine. Patient declined nicotine patch. Psychiatrist seen and evaluated patient, and diagnosed patient with depression . Patient decided to leave AGAINST MEDICAL ADVICE. The risks and consequences of signing AGAINST MEDICAL ADVICE were discussed with patient in detail. Patient verbalized understanding, nevertheless declined to sign AMA form and left. FINAL DIAGNOSES: Alcohol withdrawal Chest pain with palpitations probably due to alcohol withdrawal Possible pleuritic chest pain Asthma/COPD Hypertension Hypercholesteremia Depression ETOH abuse Nicotine addiction Obesity Osteoarthritis of knee I have been assigned to dictate discharge summary for this account. I was not involved in the patient's management. Ning Gilbert NP Aug 07, 2018 10:49
[2018-08-07] MEDS ORDERED: FOLIC ACID IV SCH (12:15)
[2018-08-07] MEDS ORDERED: [UNRECOGNIZED DRUG - OTHER] IV SCH (12:15)
[2018-08-07] MEDS ORDERED: MAGNESIUM SULFATE IV SCH (12:15)
[2018-08-07] MEDS ORDERED: MULTIVITAMIN IV SCH (12:15)
[2018-08-07] MEDS ORDERED: Thiamine HCl 100 MG in D5W 55 ML IVPB SCH (13:00)
== END 2018-08-06 17:01 | disposition left against medical advice (07) | DRG 894 ==
LOC: EMR 20:18 → 2E 20:43 → EDBEDREQ 08-05 05:06 → 4E 08-06 15:01
DX: F10.239 Alcohol dependence with withdrawal, unspecified (principal); R07.81 Pleurodynia; R00.2 Palpitations; J44.9 Chronic obstructive pulmonary disease, unspecified; I10 Essential (primary) hypertension; M17.0 Bilateral primary osteoarthritis of knee; F17.200 Nicotine dependence, unspecified, uncomplicated; I25.10 Atherosclerotic heart disease of native coronary artery without angina pectoris; E78.00 Pure hypercholesterolemia, unspecified; F32.9 Major depressive disorder, single episode, unspecified; E66.9 Obesity, unspecified; R45.1 Restlessness and agitation
CPT/HCPCS: 36415; 71045; 80048; 80053; 80061; 80307; 82550; 82553; 83690; 84443; 84484; 85025; 85610; 85730; 86140; 93005; 93306; 94640; 94664; 96374; 96375; 99285; J2405; J7620